=== PATIENT | female | born 1960 | race Caucasian/White ===

== ENCOUNTER 2018-08-24 11:55 | Inpatient (IN) | payer OTHER ==
[2018-08-24] MEDS ORDERED: SODIUM CHLORIDE 0.9% 1,000 ML IV ONE ×2 (12:09→14:31)
[2018-08-24] MEDS ORDERED: KETOROLAC 60 MG/2 ML VIAL IVP STA (12:10)
[2018-08-24] MEDS ORDERED: HYDROmorphone 1 MG/ML 1 ML SYRINGE IVP STA (12:10)
--- NOTE | 2018-08-24 12:14 | ED ---
General Adult HPI - General Chief complaint: Shortness of Breath Stated complaint: pneumonia Time Seen by Provider: 08/24/18 12:00 Source: patient, EMS, RN notes reviewed Mode of arrival: EMS Limitations: no limitations - History of Present Illness Initial comments: This is a 58-year-old female who was transferred to us from [facility] for pneumonia and sepsis. Patient received Zosyn and Levaquin at that facility. Patient currently is only complaining of some chest pain and mildly short of breath. Patient states she normally has asthma but this last week she has also developed a cough. Patient denies any anterior chest pain. Patient denies any palpitations. Patient denies any headache patient denies numbness weakness patient denies lightheadedness or dizziness. Patient denies any abdominal pain patient denies nausea vomiting diarrhea. [facility] stated above her she was slightly low and they were hydrating the patient prior to transfer. - Related Data Allergies Allergy/AdvReac Type Severity Reaction Status Date / Time sulfamethoxazole AdvReac Nausea & Verified 08/24/18 12:09 [From Bactrim] Vomiting trimethoprim [From Bactrim] AdvReac Nausea & Verified 08/24/18 12:09 Vomiting Review of Systems ROS Statement: Those systems with pertinent positive or pertinent negative responses have been documented in the HPI. ROS Other: All systems not noted in ROS Statement are negative. Past Medical History Past Medical History: Asthma, Hyperlipidemia, Pneumonia History of Any Multi-Drug Resistant Organisms: None Reported Past Surgical History: Tubal Ligation Past Psychological History: No Psychological Hx Reported Smoking Status: Never smoker Past Alcohol Use History: Occasional Past Drug Use History: None Reported General Exam - General Exam Comments Initial Comments: GENERAL: Patient is well-developed and well-nourished. Patient is nontoxic and well- hydrated and is in mild distress. ENT: Neck is soft and supple. No significant lymphadenopathy is noted. Oropharynx is clear. Moist mucous membranes. Neck has full range of motion without eliciting any pain. EYES: The sclera were anicteric and conjunctiva were pink and moist. Extraocular movements were intact and pupils were equal round and reactive to light. Eyelids were unremarkable. PULMONARY: Patient has crackles in the upper lobe. CARDIOVASCULAR: There is a regular rate and rhythm without any murmurs gallops or rubs. ABDOMEN: Soft and nontender with normal bowel sounds. SKIN: Skin is clear with no lesions or rashes and otherwise unremarkable. NEUROLOGIC: Patient is alert and oriented x3. Cranial nerves II through XII are grossly intact. Motor and sensory are also intact. Normal speech, volume and content. Symmetrical smile. MUSCULOSKELETAL: Normal extremities with adequate strength and full range of motion. No lower extremity swelling or edema. No calf tenderness. LYMPHATICS: No significant lymphadenopathy is noted PSYCHIATRIC: Normal psychiatric evaluation. Limitations: no limitations Course Vital Signs 08/24/18 08/24/18 08/24/18 12:02 12:21 12:47 Temperature 99.8 F H Pulse Rate 119 H 121 H 116 H Respiratory 22 22 20 Rate Blood Pressure 102/52 92/52 86/51 O2 Sat by Pulse 96 96 98 Oximetry Procedures - Sepsis Sepsis Focused Exam #1 Time Sepsis Criteria Met: 12:00 Sepsis Focused Exam Date: 08/24/18 Sepsis Focused Exam Time: 13:32 Sepsis Focused Exam Complete: Yes Vital Signs & RN Notes Reviewed: Yes Capillary Refill: < 2 Seconds: Fingers Peripheral Pulses: Normal: Radial (R) Skin Color: Normal for Patient Respiratory Exam: normal lung sounds Cardiovascular Exam: tachycardia Medical Decision Making - Lab Data Result diagrams: 08/24/18 12:14 08/24/18 12:14 Lab Results 08/24/18 08/24/18 08/24/18 Range/Units 12:14 12:14 12:14 WBC 12.1 H (3.8-10.6) k/uL RBC 3.40 L (3.80-5.40) m/uL Hgb 7.7 L (11.4-16.0) gm/dL Hct 24.5 L (34.0-46.0) % MCV 72.2 L (80.0-100.0) fL MCH 22.7 L (25.0-35.0) pg MCHC 31.4 (31.0-37.0) g/dL RDW 16.1 H (11.5-15.5) % Plt Count 282 (150-450) k/uL Neutrophils % 93 % Lymphocytes % 3 % Monocytes % 4 % Eosinophils % 1 % Basophils % 0 % Neutrophils # 11.2 H (1.3-7.7) k/uL Lymphocytes # 0.3 L (1.0-4.8) k/uL Monocytes # 0.4 (0-1.0) k/uL Eosinophils # 0.1 (0-0.7) k/uL Basophils # 0.0 (0-0.2) k/uL Polychromasia Present Hypochromasia Marked Anisocytosis Slight Microcytosis Moderate Sodium 139 (137-145) mmol/L Potassium 4.0 (3.5-5.1) mmol/L Chloride 106 (98-107) mmol/L Carbon Dioxide 21 L (22-30) mmol/L Anion Gap 12 mmol/L BUN 19 H (7-17) mg/dL Creatinine 0.58 (0.52-1.04) mg/dL Est GFR (CKD-EPI)AfAm >90 (>60 ml/min/1.73 sqM) Est GFR (CKD-EPI)NonAf >90 (>60 ml/min/1.73 sqM) Glucose 120 H (74-99) mg/dL Plasma Lactic Acid Jorge Luis 5.7 H* (0.7-2.0) mmol/L Calcium 8.4 (8.4-10.2) mg/dL Total Bilirubin 0.8 (0.2-1.3) mg/dL AST 16 (14-36) U/L ALT 16 (9-52) U/L Alkaline Phosphatase 48 (38-126) U/L Total Protein 4.8 L (6.3-8.2) g/dL Albumin 2.8 L (3.5-5.0) g/dL Disposition Clinical Impression: Anemia, Sepsis, Pneumonia Disposition: ADMITTED IP TO THIS [facility] Referrals: Kermit Cuellar MD [Primary Care Provider] - 1-2 days Time of Disposition: 13:32
[2018-08-24 12:39] LABS: Anisocytosis Slight; Basophils % (A) 0 %; Eosinophils # (A) 0.1 k/uL (0-0.7); Eosinophils % (A) 1 %; HCT 24.5 % (34.0-46.0); HGB 7.7 gm/dL (11.4-16.0); Hypochromasia Marked; Lymphocytes # (A) 0.3 k/uL (1.0-4.8); Lymphocytes % (A) 3 %; MCH 22.7 pg (25.0-35.0); MCHC 31.4 g/dL (31.0-37.0); MCV 72.2 fL (80.0-100.0); Mean Platelet Volume 7.4; Microcytosis Moderate; Monocytes # (A) 0.4 k/uL (0-1.0); Monocytes % (A) 4 %; Neutrophils # (A) 11.2 k/uL (1.3-7.7); Neutrophils % (A) 93 %; Platelet Count 282 k/uL (150-450); RDW 16.1 % (11.5-15.5); WBC 12.1 k/uL (3.8-10.6)
[2018-08-24 12:41] LABS: ALT 16 U/L (9-52); AST 16 U/L (14-36); Albumin 2.8 g/dL (3.5-5.0); Alkaline Phosphatase 48 U/L (38-126); Anion Gap 12 mmol/L; Blood Urea Nitrogen 19 mg/dL (7-17); Calcium 8.4 mg/dL (8.4-10.2); Carbon Dioxide 21 mmol/L (22-30); Chloride 106 mmol/L (98-107); Glucose 120 mg/dL (74-99); Sodium 139 mmol/L (137-145); Total Bilirubin 0.8 mg/dL (0.2-1.3); Total Protein 4.8 g/dL (6.3-8.2)
[2018-08-24 12:54] LABS: Polychromasia Present
[2018-08-24] MEDS ORDERED: NALOXONE 0.4 MG/ML 1 ML VIAL IV PRN (13:22)
[2018-08-24] MEDS ORDERED: VANCOMYCIN IV PER PHARMACY 1 EACH MISC MISCELLANE PRN (13:24)
[2018-08-24] MEDS ORDERED: VANCOMYCIN 1,500 MG in SODIUM CHLORIDE 0.9% 250 ML IVPB ONE (14:15)
--- NOTE | 2018-08-24 15:16 | P.CNPUL ---
History of Present Illness Consult date: 08/24/18 Reason for consult: asthma, pneumonia History of present illness: 58-year-old asthmatic feeling sick for almost a week coming into the hospital initially to [facility] for shortness of breath, pleuritic chest pain on the left, generalized fatigue and fever and cough and chest congestion. Chest x -ray was done and subsequently a CAT scan of the chest was completed and the patient was found to have a lingular patchy pneumonia and the patient was started on IV antibiotics and the patient was transferred to our hospital for further care. She had leukocytosis and upon arrival she was hypotensive with systolic in the mid 80s. She received 1 L of lactated Ringer in the emergency and she had also received 2 L I [facility]. Her systolic pressure measured is around 100. She has very lethargic. No altered mentation. No nausea or vomiting. No abdominal pain. No melanotic stool. No history of any GI bleeding or anemia. Hemoglobin was as low as 7.7. She has a microcytic. Review of Systems Constitutional: Reports fatigue, Reports fever, Reports poor appetite, Reports weakness Eyes: denies blurred vision, denies bulging eye, denies decreased vision Ears: deny: decreased hearing, ear discharge, earache, tinnitus Ears, nose, mouth and throat: Denies headache, Denies sore throat Cardiovascular: Reports decreased exercise tolerance, Reports dyspnea on exertion Respiratory: Reports cough, Reports dyspnea, Reports pain on inspiration, Reports wheezing Gastrointestinal: Denies abdominal pain, Denies diarrhea, Denies nausea, Denies vomiting Genitourinary: Reports as per HPI Menstruation: Reports as per HPI Musculoskeletal: Denies myalgias Musculoskeletal: absent: ankle pain, ankle stiffness, ankle swelling Integumentary: Denies pruritus, Denies rash Neurological: Reports as per HPI, Reports weakness Psychiatric: Reports confusion Endocrine: Reports fatigue Hematologic/Lymphatic: Reports as per HPI Allergic/Immunologic: Reports as per HPI Past Medical History Past Medical History: Asthma, Hyperlipidemia, Pneumonia History of Any Multi-Drug Resistant Organisms: None Reported Past Surgical History: Tubal Ligation Past Psychological History: No Psychological Hx Reported Smoking Status: Never smoker Past Alcohol Use History: Occasional Past Drug Use History: None Reported Medications and Allergies Home Medications Medication Instructions Recorded Confirmed Type Acetaminophen [Tylenol] 650 mg PO Q4H PRN 08/24/18 08/24/18 History Albuterol Nebulized [Ventolin 2.5 mg INHALATION RT-Q4H PRN 08/24/18 08/24/18 History Nebulized] Citalopram Hydrobromide 20 mg PO DAILY 08/24/18 08/24/18 History [Citalopram HBr] RX: Albuterol Inhaler [Ventolin 1 - 2 puff INHALATION RT-Q4H PRN 08/24/18 History Hfa Inhaler] RX: Pravastatin Sodium [Pravachol] 20 mg PO DAILY 08/24/18 08/24/18 History Allergies Allergy/AdvReac Type Severity Reaction Status Date / Time sulfamethoxazole AdvReac Nausea & Verified 08/24/18 13:48 [From Bactrim] Vomiting trimethoprim [From Bactrim] AdvReac Nausea & Verified 08/24/18 13:48 Vomiting Physical Exam Vitals: Vital Signs Temp Pulse Resp BP Pulse Ox 08/24/18 14:32 110 H 20 88/52 93 L 08/24/18 12:47 116 H 20 86/51 98 08/24/18 12:21 121 H 22 92/52 96 08/24/18 12:02 99.8 F H 119 H 22 102/52 96 Intake and Output 08/24/18 08/24/18 08/24/18 06:59 14:59 22:59 Other: Weight 63.503 kg Lethargic, weak, and mild degree of respiratory distress, sweating, able to communicate and answer questions appropriately. No altered mentation at this point in time. Head exam was generally normal. There was no scleral icterus or corneal arcus. Mucous membranes were moist. Neck was supple and without jugular venous distension, thyromegaly, or carotid bruits. Carotids were easily palpable bilaterally. There was no adenopathy. The patient is in the lymphatics S4 Lung sounds are diminished. Crackles over the left midlung area anteriorly. Few scattered external wheeze. Cardiac exam revealed the PMI to be normally situated and sized. The rhythm was regular and no extrasystoles were noted during several minutes of auscultation. The first and second heart sounds were normal and physiologic splitting of the second heart sound was noted. There were no murmurs, rubs, clicks, or gallops. Patient is tachycardic at this point. The rhythm is sinus AbdomenAbdominal exam revealed normal bowel sounds. The abdomen was soft, non- tender, and without masses, organomegaly, or appreciable enlargement of the abdominal aorta. Examination of the extremities revealed easily palpable radial, femoral and pedal pulses. There was no cyanosis, clubbing or edema. Examination of the skin revealed no evidence of significant rashes, suspicious appearing nevi or other concerning lesions. Neurologically awake and alert and there is no focal neurological deficit Psychiatrically the patient is anxious. Results - Laboratory Findings CBC and BMP: 08/24/18 12:14 08/24/18 12:14 Abnormal lab findings: Abnormal Labs 08/24/18 08/24/18 08/24/18 12:14 12:14 12:14 WBC 12.1 H RBC 3.40 L Hgb 7.7 L Hct 24.5 L MCV 72.2 L MCH 22.7 L RDW 16.1 H Neutrophils # 11.2 H Lymphocytes # 0.3 L Carbon Dioxide 21 L BUN 19 H Glucose 120 H Plasma Lactic Acid Jorge Luis 5.7 H* Total Protein 4.8 L Albumin 2.8 L - Diagnostic Findings Chest x-ray: image reviewed CT scan - chest: image reviewed Assessment and Plan Plan: Assessment 1 acute left lung pneumonia involving the lingular segment 2 acute septic shock secondary to pneumonia 3 hypotension secondary to above 4 acute leukocytosis secondary to above 5 acute lactic acidosis secondary to above 6 chronic bronchial asthma 7 anemia, microcytic, under investigation. Clinically there are no signs of GI bleeding. This may be a chronic alcohol GI blood loss knowing that the patient' s anemia is microcytic. Rule out underlying iron deficiency anemia. Plan Admit this patient to the intensive care unit. Given additional 2 L of IV fluid in the form of normal saline. Will add up to a total of 5 L of IV fluids. We'll use pressors if needed. Cover the patient with a combination of Zosyn and Levaquin and vancomycin. Sputum Gram stain and culture. Blood culture. Legionella urine antigen. DuoNeb the regimens [id number]. IV Solu Medrol. Serum iron and iron studies. The patient will be moved to the intensive care unit. We'll make further recommendations based on her overall progress.
[2018-08-24 16:46] LABS: Glucose,Whole Blood 107 mg/dL (75-99)
[2018-08-24] MEDS: PIPERACILLIN-TAZOBACTAM 3.375 GM in DEXTROSE/WATER 1 50ML.BAG IVPB SCH (18:17)
[2018-08-24] MEDS: LACTATED RINGERS 1,000 ML IV SCH (18:32)
[2018-08-24] MEDS: PANTOPRAZOLE 40 MG/10 ML VIAL IVP SCH (18:38)
[2018-08-24] MEDS: methylPREDNISolone SOD SUCCI 125 MG/2 ML VIAL IV SCH (18:38)
[2018-08-24] MEDS: HEPARIN SODIUM,PORCINE 5,000 UNIT/ML 1 ML VIAL SQ SCH (18:39)
[2018-08-24] MEDS ORDERED: NOREPINEPHRINE 4 MG in SODIUM CHLORIDE 0.9% 250 ML IV SCH (18:45)
[2018-08-24 19:57] LABS: Anisocytosis Slight; Basophils % (A) 0 %; Eosinophils % (A) 0 %; HCT 30.3 % (34.0-46.0); HGB 8.7 gm/dL (11.4-16.0); Hypochromasia Marked; Lymphocytes # (A) 0.4 k/uL (1.0-4.8); Lymphocytes % (A) 3 %; MCH 23.2 pg (25.0-35.0); MCHC 28.6 g/dL (31.0-37.0); Mean Platelet Volume 7.4; Monocytes # (A) 0.6 k/uL (0-1.0); Monocytes % (A) 4 %; Neutrophils # (A) 14.3 k/uL (1.3-7.7); Neutrophils % (A) 91 %; Platelet Count 236 k/uL (150-450); RBC 3.73 m/uL (3.80-5.40); RDW 17.6 % (11.5-15.5); WBC 15.7 k/uL (3.8-10.6)
[2018-08-24 19:58] LABS: MCV 81.2 fL (80.0-100.0)
[2018-08-24] MEDS: IPRATROPIUM-ALBUTEROL 3 ML NEB INHALATION SCH (20:42)
--- NOTE | 2018-08-24 20:51 | HP ---
HISTORY AND PHYSICAL DATE OF ADMISSION: 08/24/2018 DATE OF SERVICE: 08/24/2018. PRESENTING COMPLAINT: Short of breath. HISTORY OF PRESENTING COMPLAINT: A very pleasant 58-year-old patient of Dr. Cuellar. The patient for one week has been having flare up of asthma, started having more and more short of breath, wheezing, slight cough with slight sputum production. Did have some fever and chills. Presented to [facility]. CT scan and chest x-ray did show left upper lobe pneumonia with a white count of 23.8, and patient was transferred down to the ER here. In the ER here, patient found to have a blood pressure of 72/56. Lactic acid of 4.4. The patient is given 4 L of fluid. Hemoglobin also was found to be 7.7. A unit of blood was ordered. The patient also found to be in asthma exacerbation. Started on Solu- Medrol and breathing treatments. The patient admitted to the ICU for the same. Patient denies having any prior history of gastrointestinal bleed or recurrent black stools. The patient had a colonoscopy by Dr. Schaffer about 2 years ago. The patient when presented to the other facility her vital signs included temperature 98.2, pulse 124, respiratory 20, blood pressure 108/59, pulse ox 94 percent on room air. REVIEW OF SYSTEMS: CONSTITUTIONAL: Tired. HEENT none. RESPIRATORY as above. CARDIOVASCULAR as above. GASTROINTESTINAL none. GENITOURINARY none. MUSCULOSKELETAL: Some pain in joints. DERMATOLOGICAL, HEMATOLOGIC, LYMPHATIC: none. PSYCHIATRY none. NEUROLOGICAL none. PAST MEDICAL HISTORY: Of asthma, hyperlipidemia. PAST SURGICAL HISTORY: Tubal ligation. SOCIAL HISTORY: Alcohol occasionally. Does not smoke. . FAMILY HISTORY: History reviewed, noncontributory to presentation. HOME MEDICATIONS: 1. Pravachol 20 mg a day. 2. Celexa 20 mg a day. 3. Ventolin 2.5 q.4 p.r.n. 4. Ventolin HFA 1 or 2 puffs q.4 p.r.n. 5. Tylenol 650 mg q.4 p.r.n. ALLERGIES: BACTRIM. PHYSICAL EXAMINATION: VITAL SIGNS: Temperature 98.7, pulse 116, respiration 22, blood pressure 86/51, pulse ox 91 percent on room air. GENERAL APPEARANCE: Average built, sitting up, tired. EYES: Pupils equal. Conjunctivae pale. HEENT: External appearance of nose and ears normal. NECK: JVD not raised. Mass not palpable. RESPIRATORY effort increased. LUNGS decreased breath sounds. Prolonged expiration. Some wheezing. CARDIOVASCULAR: First and second sounds normal. No edema. ABDOMEN: Soft, nontender. Liver and spleen not palpable. LYMPHATICS: No lymph nodes palpable in the neck and axilla. PSYCHIATRY: Alert and oriented times three. Mood and affect normal. NEUROLOGICAL: Pupils equal. Cranial nerves grossly intact. Power and sensation grossly intact. INVESTIGATIONS: Blood work from here showed a white count 12.1, hemoglobin 7.7, potassium 4.0, BUN 19, creatinine 0.58. Lactic acid 5.7, albumin 2.8. Chest x-ray for the other place showed left lower lobe dense pneumonia. A proBNP of 621. Troponin 0.012. ASSESSMENT: 1. Left upper lobe pneumonia causing sepsis with septic shock on presentation. 2. Intermittent asthma with acute exacerbation. 3. Hyperlipidemia. 4. Acute lactic acidosis. 5. Microcytic anemia. The patient does not remember having dark stools with colonoscopy 2 years ago. Will need further workup. Currently hypotensive. Getting a unit of blood. PLAN: The patient is in the ICU, started on DuoNeb, IV Levaquin, IV Zosyn. We will DC the vancomycin for now. IV Solu-Medrol. Home medications are resumed. Care was discussed with the patient. Dr. Bonds from Critical Care was consulted and also Dr. Schaffer. We will send off stool for guaiac stools. Copy to Dr. Cuellar. MMNIRMALA / VELASQUEZN: [id number] /
[2018-08-24] MEDS ORDERED: ACETAMINOPHEN TAB 325 MG TAB PO PRN (20:57)
[2018-08-25] MEDS ORDERED: VANCOMYCIN 1,250 MG in SODIUM CHLORIDE 0.9% 250 ML IVPB SCH ×2
[2018-08-25] MEDS: methylPREDNISolone SOD SUCCI 125 MG/2 ML VIAL IV SCH ×5 (00:38→23:26)
[2018-08-25] MEDS: HEPARIN SODIUM,PORCINE 5,000 UNIT/ML 1 ML VIAL SQ SCH ×4 (00:38→23:27)
[2018-08-25] MEDS: PIPERACILLIN-TAZOBACTAM 3.375 GM in DEXTROSE/WATER 1 50ML.BAG IVPB SCH ×4 (00:38→23:27)
[2018-08-25 02:12] LABS: Anisocytosis Slight; HCT 28.3 % (34.0-46.0); Hypochromasia Marked; MCH 23.7 pg (25.0-35.0); MCHC 31.7 g/dL (31.0-37.0); Mean Platelet Volume 8.9; Microcytosis Slight; Platelet Count 259 k/uL (150-450); Poikilocytosis Slight; RBC 3.78 m/uL (3.80-5.40); RDW 17.4 % (11.5-15.5); WBC 23.2 k/uL (3.8-10.6)
[2018-08-25 02:21] LABS: MCV 74.9 fL (80.0-100.0)
[2018-08-25 03:00] LABS: Band Neutrophils % 43 %; Monocytes # (M) 0.93 k/uL (0-1.0); Neutrophils % (M) 51 %; Nucleated Red Blood Cells 0 /100 WBC (0-0); Total Cells Counted 200
[2018-08-25 03:01] LABS: Ovalocytes Present
[2018-08-25 03:02] LABS: Polychromasia Present
[2018-08-25 05:24] LABS: Anion Gap 8 mmol/L; Blood Urea Nitrogen 20 mg/dL (7-17); Calcium 8.5 mg/dL (8.4-10.2); Carbon Dioxide 19 mmol/L (22-30); Chloride 110 mmol/L (98-107); Glucose 147 mg/dL (74-99); Potassium 4.3 mmol/L (3.5-5.1); Sodium 137 mmol/L (137-145)
[2018-08-25 06:10] LABS: Anisocytosis Slight; HCT 27.3 % (34.0-46.0); HGB 8.7 gm/dL (11.4-16.0); Hypochromasia Marked; MCH 24.1 pg (25.0-35.0); MCHC 31.9 g/dL (31.0-37.0); MCV 75.6 fL (80.0-100.0); Microcytosis Slight; Platelet Count 248 k/uL (150-450); Poikilocytosis Slight; RBC 3.61 m/uL (3.80-5.40); RDW 17.2 % (11.5-15.5); WBC 21.9 k/uL (3.8-10.6)
[2018-08-25] MEDS: LEVOFLOXACIN 750MG-D5W PMX 750 MG in DEXTROSE/WATER 1 150ML.BAG IVPB SCH (06:46)
[2018-08-25 06:56] LABS: Glucose,Whole Blood 161 mg/dL (75-99)
[2018-08-25 07:29] LABS: Band Neutrophils % 15 %; Eosinophils # (M) 0.22 k/uL (0-0.7); Monocytes # (M) 0.44 k/uL (0-1.0); Neutrophils % (M) 77 %; Nucleated Red Blood Cells 0 /100 WBC (0-0); Ovalocytes Present; Polychromasia Present; Total Cells Counted 100
[2018-08-25] MEDS: LACTATED RINGERS 1,000 ML IV SCH (08:18)
[2018-08-25] MEDS: PANTOPRAZOLE 40 MG/10 ML VIAL IVP SCH (08:19)
[2018-08-25] MEDS: IPRATROPIUM-ALBUTEROL 3 ML NEB INHALATION SCH ×4 (09:03→20:14)
--- NOTE | 2018-08-25 11:16 | P.GSCN ---
History of Present Illness Consult date: 08/25/18 History of present illness: 58-year-old female presented to the emergency department from an outside facility due to shortness of breath and pneumonia. On admission, she was found to have anemia with a hemoglobin of 7.7. She was given 1 unit of packed red blood cell and has responded appropriately. She states that approximately 3 or 4 years ago she did have an upper and lower endoscopy. At that time, she states she was told she only had a small polyp within her colon and no active bleeding. She states that currently she has not noticed any bright red blood in her stool or any dark stool. She denies any change in frequency of bowel movements. She denies any lightheadedness. She denies any hematemesis. She denies any nausea or vomiting episodes. She denies any abdominal pain. She does state that she feels her breathing has improved. She has no additional complaints at this time. She does admit to history of hemorrhoids that she states have not been causing any significant issues. Review of Systems All systems: negative Past Medical History Past Medical History: Asthma, Hyperlipidemia, Pneumonia History of Any Multi-Drug Resistant Organisms: None Reported Past Surgical History: Tubal Ligation Past Psychological History: No Psychological Hx Reported Smoking Status: Never smoker Past Alcohol Use History: Occasional Past Drug Use History: None Reported Medications and Allergies Home Medications Medication Instructions Recorded Confirmed Type Acetaminophen [Tylenol] 650 mg PO Q4H PRN 08/24/18 08/24/18 History Albuterol Inhaler [Ventolin Hfa 1 - 2 puff INHALATION RT-Q4H PRN 08/24/18 History Inhaler] Albuterol Nebulized [Ventolin 2.5 mg INHALATION RT-Q4H PRN 08/24/18 08/24/18 History Nebulized] Citalopram Hydrobromide 20 mg PO DAILY 08/24/18 08/24/18 History [Citalopram HBr] Pravastatin Sodium [Pravachol] 20 mg PO DAILY 08/24/18 08/24/18 History Allergies Allergy/AdvReac Type Severity Reaction Status Date / Time sulfamethoxazole AdvReac Nausea & Verified 08/24/18 13:48 [From Bactrim] Vomiting trimethoprim [From Bactrim] AdvReac Nausea & Verified 08/24/18 13:48 Vomiting Surgical - Exam Osteopathic Statement: *. No significant issues noted on an osteopathic structural exam other than those noted in the History and Physical/Consult. Vital Signs Temp Pulse Resp BP Pulse Ox 99.8 F H 119 H 22 102/52 96 08/24/18 12:02 08/24/18 12:02 08/24/18 12:02 08/24/18 12:02 08/24/18 12:02 - General well nourished, no distress - Eyes normal ocular movement - ENT normal mucosa, no hearing loss - Neck no masses, trachea midline - Respiratory Diminished lung sounds - Abdomen Soft, nontender, nondistended, no rebound, no guarding - Psychiatric oriented to time, oriented to person, oriented to place, speech is normal, memory intact Results - Labs 08/25/18 04:29 08/25/18 04:29 Abnormal Lab Results - Last 24 Hours (Table) 08/24/18 08/24/18 08/24/18 Range/Units 12:14 12:14 12:14 WBC 12.1 H (3.8-10.6) k/uL RBC 3.40 L (3.80-5.40) m/uL Hgb 7.7 L (11.4-16.0) gm/dL Hct 24.5 L (34.0-46.0) % MCV 72.2 L (80.0-100.0) fL MCH 22.7 L (25.0-35.0) pg MCHC (31.0-37.0) g/dL RDW 16.1 H (11.5-15.5) % Neutrophils # 11.2 H (1.3-7.7) k/uL Neutrophils # (Manual) (1.3-7.7) k/uL Lymphocytes # 0.3 L (1.0-4.8) k/uL Lymphocytes # (Manual) (1.0-4.8) k/uL Chloride (98-107) mmol/L Carbon Dioxide 21 L (22-30) mmol/L BUN 19 H (7-17) mg/dL Glucose 120 H (74-99) mg/dL POC Glucose (mg/dL) (75-99) mg/dL Plasma Lactic Acid Jorge Luis 5.7 H* (0.7-2.0) mmol/L Total Protein 4.8 L (6.3-8.2) g/dL Albumin 2.8 L (3.5-5.0) g/dL Crossmatch 08/24/18 08/24/18 08/24/18 Range/Units 14:25 16:44 19:18 WBC 15.7 H (3.8-10.6) k/uL RBC 3.73 L (3.80-5.40) m/uL Hgb 8.7 L (11.4-16.0) gm/dL Hct 30.3 L (34.0-46.0) % MCV (80.0-100.0) fL MCH 23.2 L (25.0-35.0) pg MCHC 28.6 L (31.0-37.0) g/dL RDW 17.6 H (11.5-15.5) % Neutrophils # 14.3 H (1.3-7.7) k/uL Neutrophils # (Manual) (1.3-7.7) k/uL Lymphocytes # 0.4 L (1.0-4.8) k/uL Lymphocytes # (Manual) (1.0-4.8) k/uL Chloride (98-107) mmol/L Carbon Dioxide (22-30) mmol/L BUN (7-17) mg/dL Glucose (74-99) mg/dL POC Glucose (mg/dL) 107 H (75-99) mg/dL Plasma Lactic Acid Jorge Luis (0.7-2.0) mmol/L Total Protein (6.3-8.2) g/dL Albumin (3.5-5.0) g/dL Crossmatch See Detail 08/24/18 08/25/18 08/25/18 Range/Units 19:18 01:27 04:29 WBC 23.2 H 21.9 H (3.8-10.6) k/uL RBC 3.78 L 3.61 L (3.80-5.40) m/uL Hgb 9.0 L 8.7 L (11.4-16.0) gm/dL Hct 28.3 L 27.3 L (34.0-46.0) % MCV 74.9 L D 75.6 L (80.0-100.0) fL MCH 23.7 L 24.1 L (25.0-35.0) pg MCHC (31.0-37.0) g/dL RDW 17.4 H 17.2 H (11.5-15.5) % Neutrophils # (1.3-7.7) k/uL Neutrophils # (Manual) 21.80 H 20.10 H (1.3-7.7) k/uL Lymphocytes # (1.0-4.8) k/uL Lymphocytes # (Manual) 0.70 L (1.0-4.8) k/uL Chloride (98-107) mmol/L Carbon Dioxide (22-30) mmol/L BUN (7-17) mg/dL Glucose (74-99) mg/dL POC Glucose (mg/dL) (75-99) mg/dL Plasma Lactic Acid Jorge Luis 3.9 H* (0.7-2.0) mmol/L Total Protein (6.3-8.2) g/dL Albumin (3.5-5.0) g/dL Crossmatch 08/25/18 08/25/18 Range/Units 04:29 06:55 WBC (3.8-10.6) k/uL RBC (3.80-5.40) m/uL Hgb (11.4-16.0) gm/dL Hct (34.0-46.0) % MCV (80.0-100.0) fL MCH (25.0-35.0) pg MCHC (31.0-37.0) g/dL RDW (11.5-15.5) % Neutrophils # (1.3-7.7) k/uL Neutrophils # (Manual) (1.3-7.7) k/uL Lymphocytes # (1.0-4.8) k/uL Lymphocytes # (Manual) (1.0-4.8) k/uL Chloride 110 H (98-107) mmol/L Carbon Dioxide 19 L (22-30) mmol/L BUN 20 H (7-17) mg/dL Glucose 147 H (74-99) mg/dL POC Glucose (mg/dL) 161 H (75-99) mg/dL Plasma Lactic Acid Jorge Luis (0.7-2.0) mmol/L Total Protein (6.3-8.2) g/dL Albumin (3.5-5.0) g/dL Crossmatch Diabetes panel 08/24/18 08/25/18 Range/Units 12:14 04:29 Sodium 139 137 (137-145) mmol/L Potassium 4.0 4.3 (3.5-5.1) mmol/L Chloride 106 110 H (98-107) mmol/L Carbon Dioxide 21 L 19 L (22-30) mmol/L BUN 19 H 20 H (7-17) mg/dL Creatinine 0.58 0.59 (0.52-1.04) mg/dL Glucose 120 H 147 H (74-99) mg/dL Calcium 8.4 8.5 (8.4-10.2) mg/dL AST 16 (14-36) U/L ALT 16 (9-52) U/L Alkaline Phosphatase 48 (38-126) U/L Total Protein 4.8 L (6.3-8.2) g/dL Albumin 2.8 L (3.5-5.0) g/dL Calcium panel 08/24/18 08/25/18 Range/Units 12:14 04:29 Calcium 8.4 8.5 (8.4-10.2) mg/dL Albumin 2.8 L (3.5-5.0) g/dL Pituitary panel 08/24/18 08/25/18 Range/Units 12:14 04:29 Sodium 139 137 (137-145) mmol/L Potassium 4.0 4.3 (3.5-5.1) mmol/L Chloride 106 110 H (98-107) mmol/L Carbon Dioxide 21 L 19 L (22-30) mmol/L BUN 19 H 20 H (7-17) mg/dL Creatinine 0.58 0.59 (0.52-1.04) mg/dL Glucose 120 H 147 H (74-99) mg/dL Calcium 8.4 8.5 (8.4-10.2) mg/dL Adrenal panel 08/24/18 08/25/18 Range/Units 12:14 04:29 Sodium 139 137 (137-145) mmol/L Potassium 4.0 4.3 (3.5-5.1) mmol/L Chloride 106 110 H (98-107) mmol/L Carbon Dioxide 21 L 19 L (22-30) mmol/L BUN 19 H 20 H (7-17) mg/dL Creatinine 0.58 0.59 (0.52-1.04) mg/dL Glucose 120 H 147 H (74-99) mg/dL Calcium 8.4 8.5 (8.4-10.2) mg/dL Total Bilirubin 0.8 (0.2-1.3) mg/dL AST 16 (14-36) U/L ALT 16 (9-52) U/L Alkaline Phosphatase 48 (38-126) U/L Total Protein 4.8 L (6.3-8.2) g/dL Albumin 2.8 L (3.5-5.0) g/dL Assessment and Plan (1) Anemia Narrative/Plan: 58-year-old female with what appears to be microcytic anemia - Responded appropriately to 1 unit of packed red blood cell - No current evidence of gross GI bleed - Agree with fecal occult testing, will await results - Currently, there is no plan for any urgent upper or lower endoscopy due to no gross evidence of GI bleed. We will await improvement of pneumonia and respiratory status prior to making decision on inpatient versus outpatient endoscopy. Thank you for this consultation, we look forward in providing in this patient's care. Current Visit: Yes Status: Acute Code(s): D64.9 - ANEMIA, UNSPECIFIED SNOMED Code(s): 707198185
--- NOTE | 2018-08-25 11:39 | P.PN ---
Subjective Progress Note Date: 08/25/18 58-year-old asthmatic feeling sick for almost a week coming into the hospital initially to [facility] for shortness of breath, pleuritic chest pain on the left, generalized fatigue and fever and cough and chest congestion. Chest x -ray was done and subsequently a CAT scan of the chest was completed and the patient was found to have a lingular patchy pneumonia and the patient was started on IV antibiotics and the patient was transferred to our hospital for further care. She had leukocytosis and upon arrival she was hypotensive with systolic in the mid 80s. She received 1 L of lactated Ringer in the emergency and she had also received 2 L I [facility]. Her systolic pressure measured is around 100. She has very lethargic. No altered mentation. No nausea or vomiting. No abdominal pain. No melanotic stool. No history of any GI bleeding or anemia. Hemoglobin was as low as 7.7. She has a microcytic. On 08/25/2018 I'm seeing this patient for a follow-up. The patient was admitted to the hospital for left lung pneumonia and sepsis. The patient is currently on a triple antibiotic coverage. She started having pleuritic left- sided chest pain. She is less short of breath compared to yesterday and she is on 2 L of oxygen by nasal cannula. She is still having some mild degree of sinus tachycardia due to hypotension as recovered and the patient has responded to fluids and she did not require any pressors. Currently she is running on normal saline at the rate of 100 mL an hour. The patient also received a unit of packed RBC and a previous colonoscopy that was done on this patient by [facility] was essentially within normal limits and the patient is again to be evaluated by general surgery. She does have an underlying iron deficiency anemia and iron levels are still pending for now. She is doing well. She is tolerating her diet. No nausea or vomiting. A follow-up chest x-ray has not been done today and this is in progress. Overall she is doing better and much more alert and responsive compared to yesterday. Objective - Vital Signs Vital signs: Vital Signs Temp 98.1 F 08/25/18 08:00 Pulse 105 H 08/25/18 11:00 Resp 20 08/25/18 11:00 BP 102/59 08/25/18 11:00 Pulse Ox 99 08/25/18 11:00 Intake & Output 08/24/18 08/25/18 08/25/18 18:59 06:59 18:59 Intake Total 922.5 1100 927.5 Output Total 1000 200 Balance 922.5 100 727.5 Weight 63.5 kg 75.3 kg Intake: Intake, IV Titration 462.5 1100 687.5 Amount Lactated Ringers 1,000 ml 200 1100 500 @ 100 mls/hr IV .Q10H LISA Rx#:[id number] Levofloxacin 750Mg-D5w 150 Pmx 750 mg In Dextrose/ Water 1 150ml.bag @ 100 mls/hr IVPB Q24H LISA Rx#: [id number] Piperacillin-Tazobactam 3 12.5 37.5 .375 gm In Dextrose/Water 1 50ml.bag @ 12.5 mls/hr IVPB Q8HR LISA Rx#: [id number] Vancomycin 1,250 mg In 250 Sodium Chloride 0.9% 250 ml @ 125 mls/hr IVPB Q8H LISA Rx#:[id number] Oral 150 240 Blood Product 310 Rc As-1 Unit 310 [id number] Output: Urine 1000 200 Other: Voiding Method Toilet Toilet Toilet # Voids 1 0 0 - Exam Lethargic, weak, and mild degree of respiratory distress, sweating, able to communicate and answer questions appropriately. No altered mentation at this point in time. Head exam was generally normal. There was no scleral icterus or corneal arcus. Mucous membranes were moist. Neck was supple and without jugular venous distension, thyromegaly, or carotid bruits. Carotids were easily palpable bilaterally. There was no adenopathy. The patient is in the lymphatics S4 Lung sounds are diminished. Crackles over the left midlung area anteriorly. Few scattered external wheeze. Cardiac exam revealed the PMI to be normally situated and sized. The rhythm was regular and no extrasystoles were noted during several minutes of auscultation. The first and second heart sounds were normal and physiologic splitting of the second heart sound was noted. There were no murmurs, rubs, clicks, or gallops. Patient is tachycardic at this point. The rhythm is sinus AbdomenAbdominal exam revealed normal bowel sounds. The abdomen was soft, non- tender, and without masses, organomegaly, or appreciable enlargement of the abdominal aorta. Examination of the extremities revealed easily palpable radial, femoral and pedal pulses. There was no cyanosis, clubbing or edema. Examination of the skin revealed no evidence of significant rashes, suspicious appearing nevi or other concerning lesions. Neurologically awake and alert and there is no focal neurological deficit Psychiatrically the patient is anxious. - Labs CBC & Chem 7: 08/25/18 04:29 08/25/18 04:29 Labs: Abnormal Lab Results - Last 24 Hours (Table) 08/24/18 08/24/18 08/24/18 Range/Units 12:14 12:14 12:14 WBC 12.1 H (3.8-10.6) k/uL RBC 3.40 L (3.80-5.40) m/uL Hgb 7.7 L (11.4-16.0) gm/dL Hct 24.5 L (34.0-46.0) % MCV 72.2 L (80.0-100.0) fL MCH 22.7 L (25.0-35.0) pg MCHC (31.0-37.0) g/dL RDW 16.1 H (11.5-15.5) % Neutrophils # 11.2 H (1.3-7.7) k/uL Neutrophils # (Manual) (1.3-7.7) k/uL Lymphocytes # 0.3 L (1.0-4.8) k/uL Lymphocytes # (Manual) (1.0-4.8) k/uL Chloride (98-107) mmol/L Carbon Dioxide 21 L (22-30) mmol/L BUN 19 H (7-17) mg/dL Glucose 120 H (74-99) mg/dL POC Glucose (mg/dL) (75-99) mg/dL Plasma Lactic Acid Jorge Luis 5.7 H* (0.7-2.0) mmol/L Total Protein 4.8 L (6.3-8.2) g/dL Albumin 2.8 L (3.5-5.0) g/dL Crossmatch 08/24/18 08/24/18 08/24/18 Range/Units 14:25 16:44 19:18 WBC 15.7 H (3.8-10.6) k/uL RBC 3.73 L (3.80-5.40) m/uL Hgb 8.7 L (11.4-16.0) gm/dL Hct 30.3 L (34.0-46.0) % MCV (80.0-100.0) fL MCH 23.2 L (25.0-35.0) pg MCHC 28.6 L (31.0-37.0) g/dL RDW 17.6 H (11.5-15.5) % Neutrophils # 14.3 H (1.3-7.7) k/uL Neutrophils # (Manual) (1.3-7.7) k/uL Lymphocytes # 0.4 L (1.0-4.8) k/uL Lymphocytes # (Manual) (1.0-4.8) k/uL Chloride (98-107) mmol/L Carbon Dioxide (22-30) mmol/L BUN (7-17) mg/dL Glucose (74-99) mg/dL POC Glucose (mg/dL) 107 H (75-99) mg/dL Plasma Lactic Acid Jorge Luis (0.7-2.0) mmol/L Total Protein (6.3-8.2) g/dL Albumin (3.5-5.0) g/dL Crossmatch See Detail 08/24/18 08/25/18 08/25/18 Range/Units 19:18 01:27 04:29 WBC 23.2 H 21.9 H (3.8-10.6) k/uL RBC 3.78 L 3.61 L (3.80-5.40) m/uL Hgb 9.0 L 8.7 L (11.4-16.0) gm/dL Hct 28.3 L 27.3 L (34.0-46.0) % MCV 74.9 L D 75.6 L (80.0-100.0) fL MCH 23.7 L 24.1 L (25.0-35.0) pg MCHC (31.0-37.0) g/dL RDW 17.4 H 17.2 H (11.5-15.5) % Neutrophils # (1.3-7.7) k/uL Neutrophils # (Manual) 21.80 H 20.10 H (1.3-7.7) k/uL Lymphocytes # (1.0-4.8) k/uL Lymphocytes # (Manual) 0.70 L (1.0-4.8) k/uL Chloride (98-107) mmol/L Carbon Dioxide (22-30) mmol/L BUN (7-17) mg/dL Glucose (74-99) mg/dL POC Glucose (mg/dL) (75-99) mg/dL Plasma Lactic Acid Jorge Luis 3.9 H* (0.7-2.0) mmol/L Total Protein (6.3-8.2) g/dL Albumin (3.5-5.0) g/dL Crossmatch 08/25/18 08/25/18 Range/Units 04:29 06:55 WBC (3.8-10.6) k/uL RBC (3.80-5.40) m/uL Hgb (11.4-16.0) gm/dL Hct (34.0-46.0) % MCV (80.0-100.0) fL MCH (25.0-35.0) pg MCHC (31.0-37.0) g/dL RDW (11.5-15.5) % Neutrophils # (1.3-7.7) k/uL Neutrophils # (Manual) (1.3-7.7) k/uL Lymphocytes # (1.0-4.8) k/uL Lymphocytes # (Manual) (1.0-4.8) k/uL Chloride 110 H (98-107) mmol/L Carbon Dioxide 19 L (22-30) mmol/L BUN 20 H (7-17) mg/dL Glucose 147 H (74-99) mg/dL POC Glucose (mg/dL) 161 H (75-99) mg/dL Plasma Lactic Acid Jorge Luis (0.7-2.0) mmol/L Total Protein (6.3-8.2) g/dL Albumin (3.5-5.0) g/dL Crossmatch Assessment and Plan Plan: Assessment 1 acute left lung pneumonia involving the lingular segment, currently on a triple antibiotic coverage utilizing a combination of Zosyn and Levaquin and vancomycin. Follow-up chest exit of today's pending. Clinically improved although she is having still some Zyrtec chest pain on the left. Currently on oxygen at 2 L per minute nasal cannula. Hemodynamically more stable. No hypotension. Still having some mild degree of sinus tachycardia. 2 acute septic shock secondary to pneumonia 3 hypotension secondary to above, improved and currently on no pressors 4 acute leukocytosis secondary to above, white cell count remains elevated at 21 5 acute lactic acidosis secondary to above 6 chronic bronchial asthma 7 anemia, microcytic, under investigation. Clinically there are no signs of GI bleeding. This may be a chronic alcohol GI blood loss knowing that the patient' s anemia is microcytic. Rule out underlying iron deficiency anemia. Plan Obtain a follow-up chest x-ray. Continue same antibiotic coverage. Awaiting the results of the blood cultures. IV fluids with normal saline at the rate of 100 mL an hour. Oxygen 2 L per minute nasal cannula. Same antibiotic coverage. May leave the ICU at a later stage. Advance diet. Advance activity. We'll follow.
[2018-08-25] MEDS: INSULIN ASPART 100 UNIT/ML 1 ML 10 ML VIAL SQ SCH ×3 (11:56→21:54)
--- NOTE | 2018-08-25 11:56 | XR ---
EXAMINATION TYPE: XR chest 1V DATE OF EXAM: 08/25/2018 HISTORY: left lung pneumonia. REFERENCE: Chest radiograph dated 08/24/2018. FINDINGS: There is continuing left upper lobe airspace disease. There is an enlarging left effusion. The right lung is clear. The heart is mildly enlarged. IMPRESSION: 1. WORSENING LEFT-SIDED AIRSPACE DISEASE. 2. WORSENING LEFT-SIDED EFFUSION. 3. MILD CARDIOMEGALY.
[2018-08-25 11:57] LABS: Glucose,Whole Blood 125 mg/dL (75-99)
[2018-08-25] MEDS: SODIUM CHLORIDE 0.9% 1,000 ML IV SCH ×2 (13:07→23:27)
[2018-08-25 17:41] LABS: Glucose,Whole Blood 150 mg/dL (75-99)
[2018-08-25 21:02] LABS: Glucose,Whole Blood 209 mg/dL (75-99)
[2018-08-26] MEDS ORDERED: methylPREDNISolone SOD SUCCI 40 MG/ML 1 ML VIAL IV SCH (00:10)
--- NOTE | 2018-08-26 01:36 | PN ---
PROGRESS NOTE DATE OF SERVICE: 08/25/2018. PRESENTING COMPLAINT: Short of breath. INTERVAL HISTORY: This patient was seen by me yesterday on 08/25/2018. Patient with acute asthma exacerbation and symptomatic anemia, microcytic. Given a unit of blood. Initially admitted to the ICU, now moved out. Doing better. Breathing is stable. Did tolerate some diet. REVIEW OF SYSTEMS: Done for constitutional, cardiovascular, GI, pulmonary; relevant findings as above. CURRENT MEDICATIONS: Reviewed that include IV Solu-Medrol, DuoNeb, IV Levaquin and Zosyn. EXAMINATION: Afebrile, pulse 104, respirations 16, blood pressure 102/72, pulse ox 98% on 2 L. GENERAL APPEARANCE: Lying in bed comfortable. EYES: Pupils equal. Conjunctivae normal. Pale. HEENT: External nose and ears normal. Oral cavity normal. NECK: Neck is no JVD not raised. Mass not palpable. RESPIRATORY: Effort increased. LUNGS: Improved air entry. CARDIOVASCULAR: 1st and 2nd sounds normal. No edema. ABDOMEN: Soft, nontender. Liver and spleen not palpable. PSYCHIATRY: Alert and oriented x3. Mood and affect normal. INVESTIGATIONS: White count 21.9, hemoglobin 8.7, potassium 4.3, BUN 20, creatinine 0.59. ASSESSMENT: 1. Left upper lobe pneumonia causing sepsis with septic shock on presentation with clinical response. 2. Intermittent asthma with acute exacerbation. 3. Hyperlipidemia. 4. Acute lactic acidosis. 5. Microcytic anemia, for endoscopy down the road. PLAN: Continue medication and treatment plan. Scale Solu-Medrol to 40 every 8 hours. Care was discussed with the patient. Patient has been moved out of the ICU. The patient will need endoscopy down the road. MMODL / IJN: [id number] /
[2018-08-26] MEDS: LEVOFLOXACIN 750MG-D5W PMX 750 MG in DEXTROSE/WATER 1 150ML.BAG IVPB SCH (06:32)
[2018-08-26 07:17] LABS: Glucose,Whole Blood 150 mg/dL (75-99)
[2018-08-26] MEDS: IPRATROPIUM-ALBUTEROL 3 ML NEB INHALATION SCH ×4 (07:18→20:48)
[2018-08-26] MEDS: methylPREDNISolone SOD SUCCI 40 MG/ML 1 ML VIAL IVP SCH ×2 (07:51→16:17)
[2018-08-26] MEDS: HEPARIN SODIUM,PORCINE 5,000 UNIT/ML 1 ML VIAL SQ SCH ×2 (07:51→16:17)
[2018-08-26] MEDS: PANTOPRAZOLE 40 MG/10 ML VIAL IVP SCH (07:52)
[2018-08-26] MEDS: INSULIN ASPART 100 UNIT/ML 1 ML 10 ML VIAL SQ SCH ×4 (07:55→20:51)
[2018-08-26] MEDS: PIPERACILLIN-TAZOBACTAM 3.375 GM in DEXTROSE/WATER 1 50ML.BAG IVPB SCH ×2 (08:33→15:16)
--- NOTE | 2018-08-26 08:35 | P.PN ---
Subjective Progress Note Date: 08/26/18 Patient seen and examined at bedside. States she is feeling better. Shortness of breath has improved. Denies any bloody bowel movements. Objective - Vital Signs Vital signs: Vital Signs Temp 98.1 F 08/26/18 06:39 Pulse 110 H 08/26/18 07:34 Resp 16 08/26/18 06:39 BP 129/79 08/26/18 06:39 Pulse Ox 97 08/26/18 06:39 Intake & Output 08/25/18 08/26/18 08/26/18 18:59 06:59 18:59 Intake Total 1477.5 Output Total 600 Balance 877.5 Weight 75.3 kg Intake: Intake, IV Titration 987.5 Amount Lactated Ringers 1,000 ml 500 @ 100 mls/hr IV .Q10H LISA Rx#:[id number] Levofloxacin 750Mg-D5w 150 Pmx 750 mg In Dextrose/ Water 1 150ml.bag @ 100 mls/hr IVPB Q24H LISA Rx#: [id number] Piperacillin-Tazobactam 3 37.5 .375 gm In Dextrose/Water 1 50ml.bag @ 12.5 mls/hr IVPB Q8HR LISA Rx#: [id number] Sodium Chloride 0.9% 1, 300 000 ml @ 100 mls/hr IV . Q10H LISA Rx#:[id number] Oral 490 Output: Urine 600 Other: Voiding Method Toilet Toilet # Voids 1 2 - Constitutional General appearance: Present: cooperative, no acute distress - Respiratory Details: No difficulty with respiration - Gastrointestinal Gastrointestinal Comment(s): Soft, nontender, nondistended, no rebound, guarding - Psychiatric Psychiatric: Present: appropriate affect - Labs CBC & Chem 7: 08/25/18 04:29 08/25/18 04:29 Labs: Abnormal Lab Results - Last 24 Hours (Table) 08/24/18 08/25/18 08/25/18 Range/Units 14:25 11:55 17:26 POC Glucose (mg/dL) 125 H 150 H (75-99) mg/dL Crossmatch See Detail 08/25/18 08/26/18 Range/Units 21:01 07:15 POC Glucose (mg/dL) 209 H 150 H (75-99) mg/dL Crossmatch Assessment and Plan (1) Anemia Narrative/Plan: 58-year-old female with what appears to be microcytic anemia - Hemoglobin remains stable - No current evidence of gross GI bleed - Agree with fecal occult testing, will await results - Currently, there is no plan for any urgent upper or lower endoscopy due to no gross evidence of GI bleed. Any endoscopy will be performed as an outpatient. Current Visit: Yes Status: Acute Code(s): D64.9 - ANEMIA, UNSPECIFIED SNOMED Code(s): 591378052
[2018-08-26] MEDS: SODIUM CHLORIDE 0.9% 1,000 ML IV SCH ×2 (10:12→20:45)
[2018-08-26 10:37] LABS: Iron Saturation 1.74 (12.00-45.00)
[2018-08-26 11:16] LABS: Anion Gap 8 mmol/L; Blood Urea Nitrogen 18 mg/dL (7-17); Carbon Dioxide 23 mmol/L (22-30); Chloride 111 mmol/L (98-107); Glucose 162 mg/dL (74-99); Potassium 3.7 mmol/L (3.5-5.1); Sodium 142 mmol/L (137-145)
[2018-08-26 11:27] LABS: Glucose,Whole Blood 160 mg/dL (75-99)
--- NOTE | 2018-08-26 15:49 | P.PN ---
Subjective Progress Note Date: 08/26/18 Principal diagnosis: Acute left lung pneumonia, community-acquired. 58-year-old asthmatic feeling sick for almost a week coming into the hospital initially to [facility] for shortness of breath, pleuritic chest pain on the left, generalized fatigue and fever and cough and chest congestion. Chest x -ray was done and subsequently a CAT scan of the chest was completed and the patient was found to have a lingular patchy pneumonia and the patient was started on IV antibiotics and the patient was transferred to our hospital for further care. She had leukocytosis and upon arrival she was hypotensive with systolic in the mid 80s. She received 1 L of lactated Ringer in the emergency and she had also received 2 L I [facility]. Her systolic pressure measured is around 100. She has very lethargic. No altered mentation. No nausea or vomiting. No abdominal pain. No melanotic stool. No history of any GI bleeding or anemia. Hemoglobin was as low as 7.7. She has a microcytic. On 08/25/2018 I'm seeing this patient for a follow-up. The patient was admitted to the hospital for left lung pneumonia and sepsis. The patient is currently on a triple antibiotic coverage. She started having pleuritic left- sided chest pain. She is less short of breath compared to yesterday and she is on 2 L of oxygen by nasal cannula. She is still having some mild degree of sinus tachycardia due to hypotension as recovered and the patient has responded to fluids and she did not require any pressors. Currently she is running on normal saline at the rate of 100 mL an hour. The patient also received a unit of packed RBC and a previous colonoscopy that was done on this patient by [facility] was essentially within normal limits and the patient is again to be evaluated by general surgery. She does have an underlying iron deficiency anemia and iron levels are still pending for now. She is doing well. She is tolerating her diet. No nausea or vomiting. A follow-up chest x-ray has not been done today and this is in progress. Overall she is doing better and much more alert and responsive compared to yesterday. I saw the patient again on 08/26/2018, patient is feeling better, less pain, less cough, less shortness of breath, remains on triple antibiotics as noted by Dr. Bonsd. Patient believes that she is much better today compared to yesterday. No fever no chills no hemoptysis, and no chest pain. She did receive a unit of packed RBCs for low hemoglobin. Her hemoglobin now is 8.7. All labs were reviewed, she had a relatively normal electrolytes, lactic acid on presentation was 3.9, no follow-up lactic acid was done. Clinically however the patient is recovering nicely from initial presentation of pneumonia and sepsis. Objective - Vital Signs Vital signs: Vital Signs Temp 98.1 F 08/26/18 06:39 Pulse 108 H 08/26/18 11:33 Resp 16 08/26/18 07:50 BP 129/79 08/26/18 06:39 Pulse Ox 97 08/26/18 06:39 Intake & Output 08/25/18 08/26/18 08/26/18 18:59 06:59 18:59 Intake Total 1477.5 Output Total 600 Balance 877.5 Weight 75.3 kg Intake: Intake, IV Titration 987.5 Amount Lactated Ringers 1,000 ml 500 @ 100 mls/hr IV .Q10H LISA Rx#:[id number] Levofloxacin 750Mg-D5w 150 Pmx 750 mg In Dextrose/ Water 1 150ml.bag @ 100 mls/hr IVPB Q24H LISA Rx#: [id number] Piperacillin-Tazobactam 3 37.5 .375 gm In Dextrose/Water 1 50ml.bag @ 12.5 mls/hr IVPB Q8HR LISA Rx#: [id number] Sodium Chloride 0.9% 1, 300 000 ml @ 100 mls/hr IV . Q10H LISA Rx#:[id number] Oral 490 Output: Urine 600 Other: Voiding Method Toilet Toilet Toilet # Voids 1 2 3 - Exam Physical Exam: Revealed a 58-year-old female in no distress. On nasal cannula. Head: Atraumatic, normocephalic. Lymphatics: No lymphadenopathy. HEENT:[Neck is supple.] [No neck masses.] [No thyromegaly.] [No JVD.] Chest: [Clear throughout, no crackles, no rhonchi, no wheezes.] Cardiac Exam: [Normal S1 and S2, no S3 gallop, no murmur.] Abdomen: [Soft, nontender, no megaly, no rebound, no guarding, normal bowel sounds.] Extremities: [No clubbing, no edema, no cyanosis.] Neurological Exam: [No focal neurologic deficit.] Psychiatric: Normal mood, affect, and mental status examination. - Labs CBC & Chem 7: 08/25/18 04:29 08/26/18 10:40 Labs: Abnormal Lab Results - Last 24 Hours (Table) 08/24/18 08/25/18 08/25/18 Range/Units 14:25 04:29 17:26 Chloride (98-107) mmol/L BUN (7-17) mg/dL Glucose (74-99) mg/dL POC Glucose (mg/dL) 150 H (75-99) mg/dL Iron 6 L (50-170) ug/dL Iron Saturation 1.74 L (12.00-45.00) Crossmatch See Detail 08/25/18 08/26/18 08/26/18 Range/Units 21:01 07:15 10:40 Chloride 111 H (98-107) mmol/L BUN 18 H (7-17) mg/dL Glucose 162 H (74-99) mg/dL POC Glucose (mg/dL) 209 H 150 H (75-99) mg/dL Iron (50-170) ug/dL Iron Saturation (12.00-45.00) Crossmatch 08/26/18 Range/Units 11:24 Chloride (98-107) mmol/L BUN (7-17) mg/dL Glucose (74-99) mg/dL POC Glucose (mg/dL) 160 H (75-99) mg/dL Iron (50-170) ug/dL Iron Saturation (12.00-45.00) Crossmatch Assessment and Plan Assessment: Impression: 1 acute septic shock secondary to community-acquired pneumonia, involving left lung mostly. patient required fluid boluses upon presentation and she required placement on norepinephrine. 2 hypotension secondary to above, resolved. 3 acute lactic acidosis on presentation secondary to sepsis 4 chronic bronchial asthma presently inactive 5 microcytic anemia currently under investigation, patient did receive a unit of packed RBCs on admission. Presently on hemoglobin is 8.7. Recommendation: Continue present course of antibiotics, continue bronchodilators , not quite ready for discharge planning at this point, I would have a repeat chest x-ray in a.m. Discussed and reviewed the patient's chest x-ray, still concerning to me, again the patient is not ready for any discharge planning at this point. Her condition is a bit complex and a bit concerning. Time with Patient: Less than 30
[2018-08-26 17:11] LABS: Glucose,Whole Blood 170 mg/dL (75-99)
[2018-08-26 20:42] LABS: Glucose,Whole Blood 241 mg/dL (75-99)
--- NOTE | 2018-08-26 21:17 | PN ---
PROGRESS NOTE DATE OF SERVICE: 08/26/2018 PRESENTING COMPLAINT: Short of breath. INTERVAL HISTORY: This patient presented with acute asthma exacerbation, symptomatic anemia, microcytic, moved out of the ICU yesterday. Doing much better. Did tolerate a diet. On nasal cannula. Patient is a mouth breather. Slight cough. No sputum. REVIEW OF SYSTEMS: Done for constitutional, cardiovascular, GI, pulmonary and relevant findings as above. CURRENT MEDICATIONS: Reviewed that include DuoNeb, IV Levaquin, IV Zosyn, IV Solu-Medrol. PHYSICAL EXAMINATION: VITAL SIGNS: Temperature 96.8, pulse 108, respiration 18, blood pressure 109/66, pulse ox 98% on 2 L. GENERAL APPEARANCE: Sitting up on a chair, comfortable, awake. EYES: Pupils equal. Conjunctivae normal. HEENT: External appearance of nose and ears normal. Oral cavity normal. NECK: JVD not raised. Mass not palpable. RESPIRATORY: Effort increased. LUNGS: Decreased breath sounds. CARDIOVASCULAR: 1st and 2nd sounds normal. No edema. ABDOMEN: Soft, nontender. Liver and spleen not palpable. PSYCHIATRY: Alert and oriented x3. Mood and affect normal. INVESTIGATIONS: Potassium 3.7, BUN 18, creatinine 0.68. ASSESSMENT: 1. Left upper lobe pneumonia causing sepsis with septic shock on presentation with significant improvement. 2. Intermittent asthma with acute exacerbation. 3. Hyperlipidemia. 4. Acute lactic acidosis. 5. Microscopic anemia for endoscopy down the road. 6. Hyperglycemia from steroids. PLAN: Continue current medication and treatment plan. Patient encouraged to ambulate. Will DC the IV fluids later today as oral intake is greatly improved. MMODL / IJN: [id number] /
[2018-08-27] MEDS: HEPARIN SODIUM,PORCINE 5,000 UNIT/ML 1 ML VIAL SQ SCH ×3 (00:27→16:37)
[2018-08-27] MEDS: methylPREDNISolone SOD SUCCI 40 MG/ML 1 ML VIAL IVP SCH ×3 (00:28→16:37)
[2018-08-27] MEDS: PIPERACILLIN-TAZOBACTAM 3.375 GM in DEXTROSE/WATER 1 50ML.BAG IVPB SCH ×3 (00:29→16:37)
[2018-08-27] MEDS: LEVOFLOXACIN 750MG-D5W PMX 750 MG in DEXTROSE/WATER 1 150ML.BAG IVPB SCH (06:56)
[2018-08-27 07:30] LABS: Glucose,Whole Blood 131 mg/dL (75-99)
[2018-08-27] MEDS: IPRATROPIUM-ALBUTEROL 3 ML NEB INHALATION SCH ×4 (07:31→19:31)
[2018-08-27] MEDS: PANTOPRAZOLE 40 MG/10 ML VIAL IVP SCH (08:05)
[2018-08-27] MEDS: INSULIN ASPART 100 UNIT/ML 1 ML 10 ML VIAL SQ SCH ×4 (08:06→21:58)
--- NOTE | 2018-08-27 08:29 | XR ---
EXAMINATION TYPE: XR chest 2V DATE OF EXAM: 08/27/2018 COMPARISON: Prior chest x-ray 08/25/[address] and chest x-ray from outside institution dated 08/24/20 18 HISTORY: Left upper lobe pneumonia TECHNIQUE: Frontal and lateral views of the chest are obtained. FINDINGS: Airspace disease persists, findings are similar to prior exam, left upper lobe atelectasis noted. Heart is enlarged. No evident pneumothorax. Blunting of the posterior costophrenic angles com patible with pleural effusions. Patchy density also present at the right lung base. Retrocardiac dens ity present associated hiatal hernia, fixed intrathoracic stomach. Prominent epicardial fat pad noted on the right. IMPRESSION: Findings compatible with left upper lobe pneumonia with associated left upper lobe atele ctasis. There may be associated basilar atelectasis, small effusions. Follow-up recommended.
[2018-08-27 09:52] LABS: Anion Gap 9 mmol/L; Blood Urea Nitrogen 22 mg/dL (7-17); Calcium 8.9 mg/dL (8.4-10.2); Carbon Dioxide 22 mmol/L (22-30); Chloride 111 mmol/L (98-107); Glucose 172 mg/dL (74-99); Potassium 3.9 mmol/L (3.5-5.1); Sodium 142 mmol/L (137-145)
[2018-08-27 11:19] LABS: Glucose,Whole Blood 125 mg/dL (75-99)
--- NOTE | 2018-08-27 14:55 | P.PN ---
Subjective Progress Note Date: 08/27/18 Principal diagnosis: Acute left lung pneumonia, community-acquired 58-year-old asthmatic feeling sick for almost a week coming into the hospital initially to [facility] for shortness of breath, pleuritic chest pain on the left, generalized fatigue and fever and cough and chest congestion. Chest x -ray was done and subsequently a CAT scan of the chest was completed and the patient was found to have a lingular patchy pneumonia and the patient was started on IV antibiotics and the patient was transferred to our hospital for further care. She had leukocytosis and upon arrival she was hypotensive with systolic in the mid 80s. She received 1 L of lactated Ringer in the emergency and she had also received 2 L I [facility]. Her systolic pressure measured is around 100. She has very lethargic. No altered mentation. No nausea or vomiting. No abdominal pain. No melanotic stool. No history of any GI bleeding or anemia. Hemoglobin was as low as 7.7. She has a microcytic. On 08/25/2018 I'm seeing this patient for a follow-up. The patient was admitted to the hospital for left lung pneumonia and sepsis. The patient is currently on a triple antibiotic coverage. She started having pleuritic left- sided chest pain. She is less short of breath compared to yesterday and she is on 2 L of oxygen by nasal cannula. She is still having some mild degree of sinus tachycardia due to hypotension as recovered and the patient has responded to fluids and she did not require any pressors. Currently she is running on normal saline at the rate of 100 mL an hour. The patient also received a unit of packed RBC and a previous colonoscopy that was done on this patient by [facility] was essentially within normal limits and the patient is again to be evaluated by general surgery. She does have an underlying iron deficiency anemia and iron levels are still pending for now. She is doing well. She is tolerating her diet. No nausea or vomiting. A follow-up chest x-ray has not been done today and this is in progress. Overall she is doing better and much more alert and responsive compared to yesterday. I saw the patient again on 08/26/2018, patient is feeling better, less pain, less cough, less shortness of breath, remains on triple antibiotics as noted by Dr. Bonds. Patient believes that she is much better today compared to yesterday. No fever no chills no hemoptysis, and no chest pain. She did receive a unit of packed RBCs for low hemoglobin. Her hemoglobin now is 8.7. All labs were reviewed, she had a relatively normal electrolytes, lactic acid on presentation was 3.9, no follow-up lactic acid was done. Clinically however the patient is recovering nicely from initial presentation of pneumonia and sepsis. On 08/27/2018 patient seen in follow-up on medical surgical floor. Vital chest x-ray has been completed this morning, and shows left upper lobe pneumonia associated with atelectasis, small bilateral pleural effusions, more so on the left. There is a patchy density at the right lung base. Overall slightly improved, less density in the left upper lobe. Patient remains on tube nasal cannula, her pulse ox is 98%, afebrile, hemodynamically stable. Patient has nonproductive cough, lung sounds are positive for coarse inspiratory crackles over bilateral lungs, more so in the left upper and lower lobes, crackles at the right base. Patient remains on abiotic coverage in the form of Levaquin and Zosyn, nebulized bronchodilators, clinically she denies any worsening shortness of breath, denies any chest pain, denies any pleurisy. Legionella urinary antigen is still pending. Today's labs were reviewed, sodium is 142, potassium is 3.9, chloride is 111, B1 is 22, creatinine 0.57. Objective - Vital Signs Vital signs: Vital Signs Temp 96.9 F L 08/27/18 06:21 Pulse 94 08/27/18 11:59 Resp 16 08/27/18 11:59 BP 126/78 08/27/18 06:21 Pulse Ox 98 08/27/18 07:25 Intake & Output 08/26/18 08/27/18 08/27/18 18:59 06:59 18:59 Intake Total 600 Balance 600 Intake: Oral 600 Other: Voiding Method Toilet Toilet # Voids 3 1 - Exam Physical Exam: Revealed a 58-year-old female in no distress. On nasal cannula. Head: Atraumatic, normocephalic. Lymphatics: No lymphadenopathy. HEENT:[Neck is supple.] [No neck masses.] [No thyromegaly.] [No JVD.] Chest: [Inspiratory crackles over bilateral lower lobes, and in the left upper lobe] Cardiac Exam: [Normal S1 and S2, no S3 gallop, no murmur.] Abdomen: [Soft, nontender, no megaly, no rebound, no guarding, normal bowel sounds.] Extremities: [No clubbing, no edema, no cyanosis.] Neurological Exam: [No focal neurologic deficit.] Psychiatric: Normal mood, affect, and mental status examination. - Labs CBC & Chem 7: 08/25/18 04:29 08/27/18 08:54 Labs: Abnormal Lab Results - Last 24 Hours (Table) 08/26/18 08/26/18 08/27/18 Range/Units 16:20 20:40 07:26 Chloride (98-107) mmol/L BUN (7-17) mg/dL Glucose (74-99) mg/dL POC Glucose (mg/dL) 170 H 241 H 131 H (75-99) mg/dL 08/27/18 08/27/18 Range/Units 08:54 11:11 Chloride 111 H (98-107) mmol/L BUN 22 H (7-17) mg/dL Glucose 172 H (74-99) mg/dL POC Glucose (mg/dL) 125 H (75-99) mg/dL Assessment and Plan Plan: Assessment: 1 acute septic shock secondary to community-acquired pneumonia, involving left lung mostly. patient required fluid boluses upon presentation and she required placement on norepinephrine. 2 hypotension secondary to above, resolved. 3 acute lactic acidosis on presentation secondary to sepsis 4 chronic bronchial asthma presently inactive 5 microcytic anemia currently under investigation, patient did receive a unit of packed RBCs on admission. Presently on hemoglobin is 8.7. Plan: Continue current antibiotic coverage, continue bronchodilators, continue IV steroids. Slightly improved on follow-up chest x-ray. Not ready for discharge , but is improving. Legionella urine antigen is pending. Continue current antibiotic coverage. In to follow I performed a history & physical examination of the patient and discussed their management with my nurse practitioner, Janene Granados. I reviewed the nurse practitioner's note and agree with the documented findings and plan of care. Lung sounds are positive for diffuse crackles in bilateral lungs, in the left upper and lower lobes, and at the right base. The findings and the impression was discussed with the patient. I attest to the documentation by the nurse practitioner. Time with Patient: Less than 30
[2018-08-27 16:50] LABS: Glucose,Whole Blood 180 mg/dL (75-99)
[2018-08-27 21:37] LABS: Glucose,Whole Blood 174 mg/dL (75-99)
--- NOTE | 2018-08-27 23:23 | PN ---
PROGRESS NOTE DATE OF SERVICE: 08/27/2018. PRESENTING COMPLAINT: Short of breath. INTERVAL HISTORY: The patient presented with acute asthma exacerbation, symptomatic anemia, microcytic and pneumonia with septic shock. The patient was in the ICU. Breathing is getting better on nasal cannula. Did tolerate some diet. No sputum. Minimal cough. REVIEW OF SYSTEMS: Done for constitutional, cardiovascular, GI, pulmonary; relevant findings as above. CURRENT MEDICATIONS: Reviewed that include DuoNeb, IV Levaquin, IV Zosyn, IV Solu-Medrol. EXAMINATION: VITAL SIGNS: Afebrile, pulse 101, respiratory 18, blood pressure 136/81, pulse ox 98% on 3 L. GENERAL APPEARANCE: Sitting up, awake. EYES: Pupils equal. Conjunctivae normal. HEENT: External appearance of nose and ears normal. Oral cavity normal. NECK: JVD not raised. Mass not palpable. RESPIRATORY: Effort increased. LUNGS: Decreased breath sounds on the left side. CARDIOVASCULAR: 1st and 2nd sounds normal. No edema. ABDOMEN: Soft, nontender. Liver and spleen not palpable. PSYCHIATRY: Alert and oriented x3. Mood and affect normal. INVESTIGATION: Chest x-ray film, personally reviewed by me shows significant infiltrate on the left side and possible left significant pleural effusion. ASSESSMENT: 1. Left upper lobe pneumonia causing sepsis, septic shock on presentation with some clinical response. 2. Possible left parapneumonic effusion. 3. Intermittent asthma with acute exacerbation, improving. 4. Hyperlipidemia. 5. Acute lactic acidosis. 6. Microcytic anemia for endoscopy down the road. 7. steroids. PLAN: We will scale back on patient's steroids. Continue with IV antibiotics. We will do ultrasound of the chest to do some marking to see if there is significant fluid that needs to be tapped in a setting of effusion. In the meantime, antibiotics are to continue. MMODL / IJN: [id number] /
[2018-08-28] MEDS: PIPERACILLIN-TAZOBACTAM 3.375 GM in DEXTROSE/WATER 1 50ML.BAG IVPB SCH ×3 (00:37→23:09)
[2018-08-28] MEDS: HEPARIN SODIUM,PORCINE 5,000 UNIT/ML 1 ML VIAL SQ SCH ×3 (00:38→17:21)
[2018-08-28] MEDS: LEVOFLOXACIN 750MG-D5W PMX 750 MG in DEXTROSE/WATER 1 150ML.BAG IVPB SCH (06:27)
[2018-08-28 07:30] LABS: Glucose,Whole Blood 111 mg/dL (75-99)
[2018-08-28] MEDS: IPRATROPIUM-ALBUTEROL 3 ML NEB INHALATION SCH ×4 (08:53→20:06)
[2018-08-28] MEDS: INSULIN ASPART 100 UNIT/ML 1 ML 10 ML VIAL SQ SCH ×4 (09:07→20:39)
[2018-08-28] MEDS: methylPREDNISolone SOD SUCCI 40 MG/ML 1 ML VIAL IV SCH ×2 (09:08→23:09)
[2018-08-28] MEDS: PANTOPRAZOLE 40 MG/10 ML VIAL IVP SCH (09:08)
--- NOTE | 2018-08-28 09:18 | US ---
EXAMINATION TYPE: US chest DATE OF EXAM: 08/28/2018 COMPARISON: CXR 08/27/18 CLINICAL HISTORY: pl effusion - marking for thoracentesis. TECHNIQUE: Targeted ultrasound of the posterior lower bilateral hemithoraces EXAM MEASUREMENTS: Right Pleural Effusion pocket size: 9.0 cm Right skin surface to fluid distance: 1.9 cm Left Pleural Effusion pocket size: 1.6 cm Left skin surface to fluid distance: 2.4 cm Right side marked for possible thoracentesis outside the dept. . Pulmonologists are able to review the images in the patient?s EMR. IMPRESSIONS: 1. Bilateral pleural effusion greater on the right.
[2018-08-28 12:13] LABS: Anion Gap 8 mmol/L; Blood Urea Nitrogen 23 mg/dL (7-17); Calcium 8.7 mg/dL (8.4-10.2); Carbon Dioxide 24 mmol/L (22-30); Chloride 110 mmol/L (98-107); Glucose 124 mg/dL (74-99); Potassium 4.1 mmol/L (3.5-5.1); Sodium 142 mmol/L (137-145)
[2018-08-28 12:23] LABS: Glucose,Whole Blood 141 mg/dL (75-99)
--- NOTE | 2018-08-28 14:27 | XR ---
EXAMINATION TYPE: XR chest 2V DATE OF EXAM: 08/28/2018 COMPARISON: 08/27/2018 TECHNIQUE: PA and lateral views submitted. HISTORY: Bilateral pleural effusion FINDINGS: Bilateral pleural-parenchymal changes are stable. Heart size stable. No pneumothorax. Atherosclerotic change aorta. Interstitium remains mildly prominent. IMPRESSION: 1. Bilateral pleural-parenchymal changes are stable with a persistent more localized area of consolid ation involving the left upper lobe. May been the basis of a pneumonia. Underlying neoplasm not exclu ded. Follow to resolution recommended.
--- NOTE | 2018-08-28 15:24 | P.PN ---
Subjective Progress Note Date: 08/28/18 Principal diagnosis: Acute left lung pneumonia, community-acquired 58-year-old asthmatic feeling sick for almost a week coming into the hospital initially to [facility] for shortness of breath, pleuritic chest pain on the left, generalized fatigue and fever and cough and chest congestion. Chest x -ray was done and subsequently a CAT scan of the chest was completed and the patient was found to have a lingular patchy pneumonia and the patient was started on IV antibiotics and the patient was transferred to our hospital for further care. She had leukocytosis and upon arrival she was hypotensive with systolic in the mid 80s. She received 1 L of lactated Ringer in the emergency and she had also received 2 L I [facility]. Her systolic pressure measured is around 100. She has very lethargic. No altered mentation. No nausea or vomiting. No abdominal pain. No melanotic stool. No history of any GI bleeding or anemia. Hemoglobin was as low as 7.7. She has a microcytic. On 08/25/2018 I'm seeing this patient for a follow-up. The patient was admitted to the hospital for left lung pneumonia and sepsis. The patient is currently on a triple antibiotic coverage. She started having pleuritic left- sided chest pain. She is less short of breath compared to yesterday and she is on 2 L of oxygen by nasal cannula. She is still having some mild degree of sinus tachycardia due to hypotension as recovered and the patient has responded to fluids and she did not require any pressors. Currently she is running on normal saline at the rate of 100 mL an hour. The patient also received a unit of packed RBC and a previous colonoscopy that was done on this patient by [facility] was essentially within normal limits and the patient is again to be evaluated by general surgery. She does have an underlying iron deficiency anemia and iron levels are still pending for now. She is doing well. She is tolerating her diet. No nausea or vomiting. A follow-up chest x-ray has not been done today and this is in progress. Overall she is doing better and much more alert and responsive compared to yesterday. I saw the patient again on 08/26/2018, patient is feeling better, less pain, less cough, less shortness of breath, remains on triple antibiotics as noted by Dr. Bonds. Patient believes that she is much better today compared to yesterday. No fever no chills no hemoptysis, and no chest pain. She did receive a unit of packed RBCs for low hemoglobin. Her hemoglobin now is 8.7. All labs were reviewed, she had a relatively normal electrolytes, lactic acid on presentation was 3.9, no follow-up lactic acid was done. Clinically however the patient is recovering nicely from initial presentation of pneumonia and sepsis. On 08/27/2018 patient seen in follow-up on medical surgical floor. Vital chest x-ray has been completed this morning, and shows left upper lobe pneumonia associated with atelectasis, small bilateral pleural effusions, more so on the left. There is a patchy density at the right lung base. Overall slightly improved, less density in the left upper lobe. Patient remains on tube nasal cannula, her pulse ox is 98%, afebrile, hemodynamically stable. Patient has nonproductive cough, lung sounds are positive for coarse inspiratory crackles over bilateral lungs, more so in the left upper and lower lobes, crackles at the right base. Patient remains on abiotic coverage in the form of Levaquin and Zosyn, nebulized bronchodilators, clinically she denies any worsening shortness of breath, denies any chest pain, denies any pleurisy. Legionella urinary antigen is still pending. Today's labs were reviewed, sodium is 142, potassium is 3.9, chloride is 111, B1 is 22, creatinine 0.57. On thousand 18 patient seen in follow-up on medical surgical floor, she is more short of breath this morning, and she was more short of breath last night. Ultrasound of the chest was obtained evaluate the bilateral pleural effusions, and it showed 9 cm pocket of fluid on the right. And 1.6 cm pocket on the left. Patient is afebrile, lung sounds are diminished at the right base, with scattered crackles. Patient is on 3 L per nasal cannula, his pulse ox is 96%. No results in the Legionella urinary antigen. Patient continues on Levaquin and Zosyn. Objective - Vital Signs Vital signs: Vital Signs Temp 97.6 F 08/28/18 07:01 Pulse 92 08/28/18 09:03 Resp 18 08/28/18 07:01 BP 135/80 08/28/18 07:01 Pulse Ox 96 08/28/18 07:01 Intake & Output 08/27/18 08/28/18 08/28/18 18:59 06:59 18:59 Intake Total 600 1000 Balance 600 1000 Intake: Oral 600 1000 Other: Voiding Method Toilet # Voids 5 2 - Exam Physical Exam: Revealed a 58-year-old female in no distress. On nasal cannula. Head: Atraumatic, normocephalic. Lymphatics: No lymphadenopathy. HEENT:[Neck is supple.] [No neck masses.] [No thyromegaly.] [No JVD.] Chest: [Inspiratory crackles over bilateral lower lobes, and in the left upper lobe, diminished right lower lobe breath sounds] Cardiac Exam: [Normal S1 and S2, no S3 gallop, no murmur.] Abdomen: [Soft, nontender, no megaly, no rebound, no guarding, normal bowel sounds.] Extremities: [No clubbing, no edema, no cyanosis.] Neurological Exam: [No focal neurologic deficit.] Psychiatric: Normal mood, affect, and mental status examination. - Labs CBC & Chem 7: 08/25/18 04:29 08/28/18 10:54 Labs: Abnormal Lab Results - Last 24 Hours (Table) 08/27/18 08/27/18 08/28/18 Range/Units 16:46 21:23 07:17 POC Glucose (mg/dL) 180 H 174 H 111 H (75-99) mg/dL Assessment and Plan Plan: Assessment: 1. acute septic shock secondary to community-acquired pneumonia, involving left lung mostly. patient required fluid boluses upon presentation and she required placement on norepinephrine. 2. hypotension secondary to above, resolved. 3. acute lactic acidosis on presentation secondary to sepsis 4. 9 cm pleural fluid effusion on the right, with 1.6 cm pocket on the left 5. chronic bronchial asthma presently inactive 6. microcytic anemia currently under investigation, patient did receive a unit of packed RBCs on admission. Presently on hemoglobin is 8.7. Plan: Start Lasix 40 mg every 8 hours, repeat CXR in am. NPO after midnight for bronchoscopy with BAL with Dr. Mixon. Continue current antibiotic coverage, neb treatments, will continue to follow I performed a history & physical examination of the patient and discussed their management with my nurse practitioner, Janene Granados. I reviewed the nurse practitioner's note and agree with the documented findings and plan of care. Lung sounds are positive for diffuse crackles in bilateral lungs, in the left upper and lower lobes, and at the right base. The findings and the impression was discussed with the patient. I attest to the documentation by the nurse practitioner. Time with Patient: Less than 30
[2018-08-28 17:01] LABS: Glucose,Whole Blood 160 mg/dL (75-99)
--- NOTE | 2018-08-28 19:46 | PN ---
PROGRESS NOTE DATE OF SERVICE: 08/28/18. PRESENTING COMPLAINT: Short of breath. INTERVAL HISTORY: This patient presented with acute asthma exacerbation and severe pneumonia with septic shock. The patient did get up and walk in the hallway. Minimal sputum production, got a cough. REVIEW OF SYSTEMS: Done for constitutional, cardiovascular, GI, pulmonary; relevant findings as above. CURRENT MEDICATIONS: Reviewed that include DuoNeb, IV Levaquin, IV Zosyn, IV Solu-Medrol. PHYSICAL EXAMINATION: Temperature 96.9, pulse 92, respiration 16, blood pressure 150/94, pulse ox 96% on 3 L. GENERAL APPEARANCE: Sitting up, awake. EYES: Pupils equal. Conjunctivae normal. HEENT: External appearance of nose and ears normal. Oral cavity normal. NECK: JVD not raised. Mass not palpable. RESPIRATORY: Effort increased. Lungs, decreased breath sounds, especially the left side. CARDIOVASCULAR: First and second sounds normal. No edema. ABDOMEN: Soft, nontender. Liver and spleen not palpable. PSYCHIATRY: Alert and oriented x3. Mood and affect normal. INVESTIGATIONS: Chest ultrasound reveals effusions on both the sides. ASSESSMENT: 1. Left lower lobe pneumonia causing sepsis, septic shock on presentation with some associated pleural effusion. 2. Possible left parapneumonic effusion. 3. Intermittent asthma with acute exacerbation, improved. 4. Hyperlipidemia. 5. Acute lactic acidosis. 6. Macrocytic anemia for endoscopy down the road. 7. Doubt congestive heart failure. PLAN: I discussed the ultrasound results with Dr. Mixon. He may contemplate a bronchoscopy with lavage. He is going to give some Lasix. I am not sure of the clinical pictures compatible with the same. We will see how the patient does clinically. We will order 2D echocardiogram to assess LV function. Either case bronchoscopy with lavage is a good idea. Discussed this with the patient. Continue with the antibiotics. MMODL / IJN: [id number] /
[2018-08-28 21:06] LABS: Glucose,Whole Blood 120 mg/dL (75-99)
[2018-08-28] MEDS: FUROSEMIDE 10 MG/ML 4 ML VIAL IV SCH (23:08)
[2018-08-29] MEDS: FUROSEMIDE 10 MG/ML 4 ML VIAL IV SCH ×3 (00:47→15:08)
[2018-08-29] MEDS: PIPERACILLIN-TAZOBACTAM 3.375 GM in DEXTROSE/WATER 1 50ML.BAG IVPB SCH ×3 (00:49→15:09)
[2018-08-29] MEDS: HEPARIN SODIUM,PORCINE 5,000 UNIT/ML 1 ML VIAL SQ SCH ×3 (00:51→15:08)
[2018-08-29 07:35] LABS: Glucose,Whole Blood 89 mg/dL (75-99)
[2018-08-29] MEDS: IPRATROPIUM-ALBUTEROL 3 ML NEB INHALATION SCH ×4 (07:47→20:12)
[2018-08-29] MEDS: INSULIN ASPART 100 UNIT/ML 1 ML 10 ML VIAL SQ SCH ×4 (08:22→21:20)
[2018-08-29] MEDS: LEVOFLOXACIN 750MG-D5W PMX 750 MG in DEXTROSE/WATER 1 150ML.BAG IVPB SCH (08:26)
[2018-08-29] MEDS: methylPREDNISolone SOD SUCCI 40 MG/ML 1 ML VIAL IV SCH ×2 (08:27→21:19)
[2018-08-29] MEDS: PANTOPRAZOLE 40 MG/10 ML VIAL IVP SCH (08:27)
[2018-08-29 12:01] LABS: Glucose,Whole Blood 119 mg/dL (75-99)
[2018-08-29] MEDS ORDERED: LACTATED RINGERS 1,000 ML IV ONE ×2 (12:14→12:32)
[2018-08-29] MEDS ORDERED: LACTATED RINGERS 500 ML IV ONE (12:19)
[2018-08-29] MEDS ORDERED: LIDOCAINE 2% INJ 20 MG/ML INTRATRACH ONE (12:30)
--- NOTE | 2018-08-29 13:43 | P.PN ---
Subjective Progress Note Date: 08/29/18 Principal diagnosis: Acute community-acquired left lung pneumonia. 58-year-old asthmatic feeling sick for almost a week coming into the hospital initially to [facility] for shortness of breath, pleuritic chest pain on the left, generalized fatigue and fever and cough and chest congestion. Chest x -ray was done and subsequently a CAT scan of the chest was completed and the patient was found to have a lingular patchy pneumonia and the patient was started on IV antibiotics and the patient was transferred to our hospital for further care. She had leukocytosis and upon arrival she was hypotensive with systolic in the mid 80s. She received 1 L of lactated Ringer in the emergency and she had also received 2 L I [facility]. Her systolic pressure measured is around 100. She has very lethargic. No altered mentation. No nausea or vomiting. No abdominal pain. No melanotic stool. No history of any GI bleeding or anemia. Hemoglobin was as low as 7.7. She has a microcytic. On 08/25/2018 I'm seeing this patient for a follow-up. The patient was admitted to the hospital for left lung pneumonia and sepsis. The patient is currently on a triple antibiotic coverage. She started having pleuritic left- sided chest pain. She is less short of breath compared to yesterday and she is on 2 L of oxygen by nasal cannula. She is still having some mild degree of sinus tachycardia due to hypotension as recovered and the patient has responded to fluids and she did not require any pressors. Currently she is running on normal saline at the rate of 100 mL an hour. The patient also received a unit of packed RBC and a previous colonoscopy that was done on this patient by [facility]ius was essentially within normal limits and the patient is again to be evaluated by general surgery. She does have an underlying iron deficiency anemia and iron levels are still pending for now. She is doing well. She is tolerating her diet. No nausea or vomiting. A follow-up chest x-ray has not been done today and this is in progress. Overall she is doing better and much more alert and responsive compared to yesterday. I saw the patient again on 08/26/2018, patient is feeling better, less pain, less cough, less shortness of breath, remains on triple antibiotics as noted by Dr. Bonds. Patient believes that she is much better today compared to yesterday. No fever no chills no hemoptysis, and no chest pain. She did receive a unit of packed RBCs for low hemoglobin. Her hemoglobin now is 8.7. All labs were reviewed, she had a relatively normal electrolytes, lactic acid on presentation was 3.9, no follow-up lactic acid was done. Clinically however the patient is recovering nicely from initial presentation of pneumonia and sepsis. On 08/27/2018 patient seen in follow-up on medical surgical floor. Vital chest x-ray has been completed this morning, and shows left upper lobe pneumonia associated with atelectasis, small bilateral pleural effusions, more so on the left. There is a patchy density at the right lung base. Overall slightly improved, less density in the left upper lobe. Patient remains on tube nasal cannula, her pulse ox is 98%, afebrile, hemodynamically stable. Patient has nonproductive cough, lung sounds are positive for coarse inspiratory crackles over bilateral lungs, more so in the left upper and lower lobes, crackles at the right base. Patient remains on abiotic coverage in the form of Levaquin and Zosyn, nebulized bronchodilators, clinically she denies any worsening shortness of breath, denies any chest pain, denies any pleurisy. Legionella urinary antigen is still pending. Today's labs were reviewed, sodium is 142, potassium is 3.9, chloride is 111, B1 is 22, creatinine 0.57. On 08/28/2018 patient seen in follow-up on medical surgical floor, she is more short of breath this morning, and she was more short of breath last night. Ultrasound of the chest was obtained evaluate the bilateral pleural effusions, and it showed 9 cm pocket of fluid on the right. And 1.6 cm pocket on the left. Patient is afebrile, lung sounds are diminished at the right base, with scattered crackles. Patient is on 3 L per nasal cannula, his pulse ox is 96%. No results in the Legionella urinary antigen. Patient continues on Levaquin and Zosyn. The patient is seen again today on 08/29/2018 in follow-up on the regular medical floor. She is awake and alert in no acute distress. She is still having ongoing issues with shortness of breath, dyspnea on exertion, loose nonproductive cough. The plan is for bronchoscopy with BAL today with Dr. Mixon. She remains afebrile. Maintaining O2 saturations in the mid 90s on 2 L /m per nasal cannula. Hemodynamically stable. She remains on bronchodilators, Zosyn and Levaquin along with IV Solu-Medrol and IV diuretics. Objective - Vital Signs Vital signs: Vital Signs Temp 98.5 F 08/29/18 06:39 Pulse 80 08/29/18 11:03 Resp 20 08/29/18 06:39 BP 143/82 08/29/18 06:39 Pulse Ox 95 08/29/18 06:39 Intake & Output 08/28/18 08/29/18 08/29/18 18:59 06:59 18:59 Intake Total 50 450 100 Balance 50 450 100 Intake: IV 100 Intake, IV Titration 50 Amount Piperacillin-Tazobactam 3 50 .375 gm In Dextrose/Water 1 50ml.bag @ 12.5 mls/hr IVPB Q8HR LISA Rx#: [id number] Oral 450 Other: # Voids 2 3 - Exam GENERAL EXAM: Alert, active, comfortable in no apparent distress. HEAD: Normocephalic. EYES: Normal reaction of pupils, equal size. NOSE: Clear with pink turbinates. THROAT: No erythema or exudates. NECK: No masses, no JVD. CHEST: No chest wall deformity. LUNGS: Equal air entry with scattered rhonchi more so on the left. CVS: S1 and S2 normal with no audible murmur, regular rhythm. ABDOMEN: No hepatosplenomegaly, normal bowel sounds, no guarding or rigidity. SPINE: No scoliosis or deformity SKIN: No rashes CENTRAL NERVOUS SYSTEM: No focal deficits, tone is normal in all 4 extremities. EXTREMITIES: There is no peripheral edema. No clubbing, no cyanosis. Peripheral pulses are intact. - Labs CBC & Chem 7: 08/25/18 04:29 08/28/18 10:54 Labs: Abnormal Lab Results - Last 24 Hours (Table) 08/28/18 08/28/18 08/29/18 Range/Units 16:50 20:38 11:52 POC Glucose (mg/dL) 160 H 120 H 119 H (75-99) mg/dL Assessment and Plan Assessment: Assessment: 1. acute septic shock secondary to community-acquired pneumonia, involving left lung mostly. patient required fluid boluses upon presentation and she required placement on norepinephrine. Recovered. 2. hypotension secondary to above, resolved. 3. acute lactic acidosis on presentation secondary to sepsis 4. 9 cm pleural fluid effusion on the right, with 1.6 cm pocket on the left 5. chronic bronchial asthma presently inactive 6. microcytic anemia currently under investigation, patient did receive a unit of packed RBCs on admission. Presently on hemoglobin is 8.7. Plan: The patient was seen and evaluated by Dr. Mixon. The plan is for bronchoscopy with BAL. Bronchial wash will be sent for fluid analysis and cytology. Continue with the current treatment plan. We'll continue to follow. I, the cosigning physician, performed a history & physical examination of the patient. Lungs sounds with scattered rhonchi more so on the left lung. Maintaining good O2 saturations in the 90s on 2 L/m per nasal cannula. I discussed the assessment and plan of care with my nurse practitioner, Lila Bunch. I attest to the above note as dictated by her.
[2018-08-29 17:40] LABS: Glucose,Whole Blood 159 mg/dL (75-99)
--- NOTE | 2018-08-29 18:07 | ECHOF ---
Referral Reason:assess lv function MEASUREMENTS -------- HEIGHT: 152.4 cm WEIGHT: 75.3 kg BP: 143/82 RVIDd: 2.8 cm (< 3.3) IVSd: 1.3 cm (0.6 - 1.1) LVIDd: 2.8 cm (3.9 - 5.3) LVPWd: 1.3 cm (0.6 - 1.1) IVSs: 1.5 cm LVIDs: 1.7 cm LVPWs: 1.4 cm LAESV Index (A-L): 18.95 ml/m Ao Diam: 2.7 cm (2.0 - 3.7) AV Cusp: 1.6 cm (1.5 - 2.6) LA Diam: 3.6 cm (2.7 - 3.8) EPSS: 0.3 cm MV E Nnamdi: 0.94 m/s MV DecT: 224 ms MV A Nnamdi: 1.07 m/s MV E/A Ratio: 0.88 RAP: 5.00 mmHg RVSP: 24.86 mmHg MV EF SLOPE: 75.75 mm/s (70 - 150) MV EXCURSION: 1.33 cm (> 18.000) FINDINGS -------- Sinus rhythm. This was a technically adequate study. The left ventricular size is normal. There is mild concentric left ventricular hypertrophy. Overa ll left ventricular systolic function is normal with, an EF between 55 - 60 %. The right ventricle is normal in size and function. Normal LA size by volume 22+/-6 ml/m2. The right atrium is normal in size. Aortic valve is trileaflet and is mildly thickened. There is no evidence of aortic regurgitation. There is no evidence of aortic stenosis. Mild mitral annular calcification present. Mild mitral regurgitation is present. Trace tricuspid regurgitation present. Right ventricular systolic pressure is normal at < 35 mmHg. There is no evidence of pulmonary hypertension. Trace/mild (physiologic) pulmonic regurgitation. The aortic root size is normal. Normal inferior vena cava with normal inspiratory collapse consistent with estimated right atrial pre ssure of 5 mmHg. There is a small pericardial effusion is located near the right ventricle. CONCLUSIONS -------- 1. Sinus rhythm. 2. This was a technically adequate study. 3. The left ventricular size is normal. 4. There is mild concentric left ventricular hypertrophy. 5. Overall left ventricular systolic function is normal with, an EF between 55 - 60 %. 6. Normal LA size by volume 22+/-6 ml/m2. 7. Aortic valve is trileaflet and is mildly thickened. 8. Mild mitral annular calcification present. 9. Mild mitral regurgitation is present. 10. Trace tricuspid regurgitation present. 11. Right ventricular systolic pressure is normal at < 35 mmHg. 12. There is no evidence of pulmonary hypertension. 13. Trace/mild (physiologic) pulmonic regurgitation. 14. The aortic root size is normal. 15. There is a small pericardial effusion is located near the right ventricle. REALTIME REPORTER: Manny Mayers RDCS
[2018-08-29 19:14] LABS: Appearance,BF Hazy; Nucleated Cells, Body Fluid 120 /uL; RBC, Body Fluid 550 /uL
[2018-08-29 19:15] LABS: Mononuclear WBC,Body Fluid 51 %; Polynuclear WBC,Body Fluid 49 %; Total Cells Counted,Body Fluid 100
[2018-08-29 20:31] LABS: Glucose,Whole Blood 144 mg/dL (75-99)
--- NOTE | 2018-08-30 00:05 | PCN ---
PROCEDURE NOTE OPERATIVE REPORT: Bronchoscopy and bronchoalveolar lavage of the lingula and the left upper lobe. PREOPERATIVE DIAGNOSIS: Extensive left-sided pneumonia involving the left upper lobe and lingula. POSTOPERATIVE DIAGNOSIS: Extensive left sided pneumonia involving the left upper lobe and lingula. ANESTHESIA USED: IV conscious sedation. 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 PROCEDURE: The patient was prepared according to the Hugo protocol. Placed in a supine position, O2 was applied via nasal cannula, and we monitored her O2 saturation continuously, blood pressure was intermittently monitored, and cardiac rhythm was continuously monitored. After adequate IV conscious sedation, the bronchoscope was inserted through the right naris down to the area of the vocal cords. They were noted to be patent. Lidocaine was applied over the vocal cords, the bronchoscope was advanced further down to the trachea. A thorough examination was done of the trachea, right upper lobe, right middle lobe, right lower lobe, and these were basically unremarkable. The left upper lobe lingula and left lower lobe were examined, minimal purulent secretions were noted to be in the lingula. Otherwise, no evidence of any significant abnormalities noted visually during the bronchoscopy. Lavage of the left upper lobe and lingula were done, fluid was sent for different diagnostic studies. Procedure was well tolerated, no evidence of any immediate complications, and no blood loss whatsoever. MMODL / IJN: [id number] /
[2018-08-30 00:13] VITALS: RESP 18
[2018-08-30] MEDS: PIPERACILLIN-TAZOBACTAM 3.375 GM in DEXTROSE/WATER 1 50ML.BAG IVPB SCH ×2 (00:54→07:40)
[2018-08-30] MEDS: HEPARIN SODIUM,PORCINE 5,000 UNIT/ML 1 ML VIAL SQ SCH ×2 (00:54→07:40)
--- NOTE | 2018-08-30 02:32 | PN ---
PROGRESS NOTE DATE OF SERVICE: 08/29/2018. PRESENTING COMPLAINT: Short of breath. INTERVAL HISTORY: Patient admitted with severe left-sided pneumonia with septic shock and also asthma exacerbation. Did undergo bronchoscopy today. I do not have the formal report. Feels a bit better. Lying in bed, tired, tolerating diet, on oxygen. REVIEW OF SYSTEMS: Done for constitutional, cardiovascular, GI, pulmonary; relevant findings as above. CURRENT MEDICATIONS: Reviewed, that include IV Levaquin, IV Zosyn, IV Solu-Medrol. EXAMINATION: Afebrile, pulse 115, respiratory rate 20, blood pressure 127/69, pulse ox 96% on room air. GENERAL APPEARANCE: Sitting up, tired. EYES: Pupils equal. Conjunctivae normal. HEENT: External appearance of nose and ears normal. Oral cavity normal. NECK: JVD not raised. Mass not palpable. Respiratory effort increased. LUNGS: Decreased breath sounds on the left side. CARDIOVASCULAR: 1st and 2nd sounds. No edema. ABDOMEN: Soft, nontender. Liver and spleen not palpable. PSYCHIATRY: Alert and oriented 3. Mood and affect normal. INVESTIGATIONS: A 2D echo shows preserved LV function. Accu-Cheks are noted. ASSESSMENT: 1. Left lobe pneumonia causing sepsis, septic shock on presentation, with some associated left pleural effusion. 2. Intermittent asthma with acute exacerbation, improved. 3. Hyperlipidemia. 4. Acute lactic acidosis. 5. Microcytic anemia, for endoscopy down the road. 6. Status post bronchoscopy. PLAN: Will await the results of bronchoscopy culture results. Meanwhile, antibiotics are to continue. Will follow with Pulmonary. Care was discussed with the patient. MMODL / IJN: [id number] /
[2018-08-30] MEDS: LEVOFLOXACIN 750MG-D5W PMX 750 MG in DEXTROSE/WATER 1 150ML.BAG IVPB SCH (06:24)
[2018-08-30 07:18] VITALS: BP 97/58; TEMP 98.3
[2018-08-30 07:34] LABS: Glucose,Whole Blood 143 mg/dL (75-99)
[2018-08-30] MEDS: PANTOPRAZOLE 40 MG/10 ML VIAL IVP SCH (07:40)
[2018-08-30] MEDS: INSULIN ASPART 100 UNIT/ML 1 ML 10 ML VIAL SQ SCH ×2 (07:40→12:04)
[2018-08-30] MEDS: methylPREDNISolone SOD SUCCI 40 MG/ML 1 ML VIAL IV SCH (08:16)
[2018-08-30] MEDS: IPRATROPIUM-ALBUTEROL 3 ML NEB INHALATION SCH ×2 (08:38→12:20)
[2018-08-30 10:17] VITALS: BMI 32.4
--- NOTE | 2018-08-30 11:00 | XR ---
EXAMINATION TYPE: XR chest 1V portable DATE OF EXAM: 08/30/2018 COMPARISON: 08/28/2018 HISTORY: Post left bronchoscopy TECHNIQUE: Single frontal view of the chest is obtained. FINDINGS: Bilateral consolidation and small effusion. Hyperinflation. No pneumothorax. Interstitium stable. Heart size stable. Atherosclerotic change of the aorta. IMPRESSION: Bilateral consolidation and pleural effusion are stable.
[2018-08-30 12:00] LABS: Glucose,Whole Blood 118 mg/dL (75-99)
--- NOTE | 2018-08-30 12:28 | P.PN ---
Subjective Progress Note Date: 08/30/18 Principal diagnosis: Acute community-acquired left lung pneumonia. 58-year-old asthmatic feeling sick for almost a week coming into the hospital initially to [facility] for shortness of breath, pleuritic chest pain on the left, generalized fatigue and fever and cough and chest congestion. Chest x -ray was done and subsequently a CAT scan of the chest was completed and the patient was found to have a lingular patchy pneumonia and the patient was started on IV antibiotics and the patient was transferred to our hospital for further care. She had leukocytosis and upon arrival she was hypotensive with systolic in the mid 80s. She received 1 L of lactated Ringer in the emergency and she had also received 2 L I [facility]. Her systolic pressure measured is around 100. She has very lethargic. No altered mentation. No nausea or vomiting. No abdominal pain. No melanotic stool. No history of any GI bleeding or anemia. Hemoglobin was as low as 7.7. She has a microcytic. On 08/25/2018 I'm seeing this patient for a follow-up. The patient was admitted to the hospital for left lung pneumonia and sepsis. The patient is currently on a triple antibiotic coverage. She started having pleuritic left- sided chest pain. She is less short of breath compared to yesterday and she is on 2 L of oxygen by nasal cannula. She is still having some mild degree of sinus tachycardia due to hypotension as recovered and the patient has responded to fluids and she did not require any pressors. Currently she is running on normal saline at the rate of 100 mL an hour. The patient also received a unit of packed RBC and a previous colonoscopy that was done on this patient by [facility]ius was essentially within normal limits and the patient is again to be evaluated by general surgery. She does have an underlying iron deficiency anemia and iron levels are still pending for now. She is doing well. She is tolerating her diet. No nausea or vomiting. A follow-up chest x-ray has not been done today and this is in progress. Overall she is doing better and much more alert and responsive compared to yesterday. I saw the patient again on 08/26/2018, patient is feeling better, less pain, less cough, less shortness of breath, remains on triple antibiotics as noted by Dr. Bonds. Patient believes that she is much better today compared to yesterday. No fever no chills no hemoptysis, and no chest pain. She did receive a unit of packed RBCs for low hemoglobin. Her hemoglobin now is 8.7. All labs were reviewed, she had a relatively normal electrolytes, lactic acid on presentation was 3.9, no follow-up lactic acid was done. Clinically however the patient is recovering nicely from initial presentation of pneumonia and sepsis. On 08/27/2018 patient seen in follow-up on medical surgical floor. Vital chest x-ray has been completed this morning, and shows left upper lobe pneumonia associated with atelectasis, small bilateral pleural effusions, more so on the left. There is a patchy density at the right lung base. Overall slightly improved, less density in the left upper lobe. Patient remains on tube nasal cannula, her pulse ox is 98%, afebrile, hemodynamically stable. Patient has nonproductive cough, lung sounds are positive for coarse inspiratory crackles over bilateral lungs, more so in the left upper and lower lobes, crackles at the right base. Patient remains on abiotic coverage in the form of Levaquin and Zosyn, nebulized bronchodilators, clinically she denies any worsening shortness of breath, denies any chest pain, denies any pleurisy. Legionella urinary antigen is still pending. Today's labs were reviewed, sodium is 142, potassium is 3.9, chloride is 111, B1 is 22, creatinine 0.57. On 08/28/2018 patient seen in follow-up on medical surgical floor, she is more short of breath this morning, and she was more short of breath last night. Ultrasound of the chest was obtained evaluate the bilateral pleural effusions, and it showed 9 cm pocket of fluid on the right. And 1.6 cm pocket on the left. Patient is afebrile, lung sounds are diminished at the right base, with scattered crackles. Patient is on 3 L per nasal cannula, his pulse ox is 96%. No results in the Legionella urinary antigen. Patient continues on Levaquin and Zosyn. The patient is seen again today on 08/29/2018 in follow-up on the regular medical floor. She is awake and alert in no acute distress. She is still having ongoing issues with shortness of breath, dyspnea on exertion, loose nonproductive cough. The plan is for bronchoscopy with BAL today with Dr. Mixon. She remains afebrile. Maintaining O2 saturations in the mid 90s on 2 L /m per nasal cannula. Hemodynamically stable. She remains on bronchodilators, Zosyn and Levaquin along with IV Solu-Medrol and IV diuretics. The patient is seen again today 08/30/2018 in follow-up on the regular medical floor. She is currently resting comfortably in bed. She states she slept wonderfully last night. No cough or congestion. No shortness of breath. She is maintaining good O2 saturations in the 90s at rest and while ambulating in the hallway. She is quite anxious to go home. Bronchial wash pending. No growth thus far. Objective - Vital Signs Vital signs: Vital Signs Temp 98.3 F 08/30/18 07:00 Pulse 88 08/30/18 12:22 Resp 18 08/30/18 07:00 BP 97/58 08/30/18 07:00 Pulse Ox 94 L 08/30/18 08:52 Intake & Output 08/29/18 08/30/18 08/30/18 18:59 06:59 18:59 Intake Total 300 900 320 Balance 300 900 320 Weight 75.3 kg Intake: IV 100 Oral 200 900 320 Other: # Voids 3 2 # Bowel Movements 0 - Exam GENERAL EXAM: Alert, active, comfortable in no apparent distress. HEAD: Normocephalic. EYES: Normal reaction of pupils, equal size. NOSE: Clear with pink turbinates. THROAT: No erythema or exudates. NECK: No masses, no JVD. CHEST: No chest wall deformity. LUNGS: Equal air entry with scattered rhonchi more so on the left. CVS: S1 and S2 normal with no audible murmur, regular rhythm. ABDOMEN: No hepatosplenomegaly, normal bowel sounds, no guarding or rigidity. SPINE: No scoliosis or deformity SKIN: No rashes CENTRAL NERVOUS SYSTEM: No focal deficits, tone is normal in all 4 extremities. EXTREMITIES: There is no peripheral edema. No clubbing, no cyanosis. Peripheral pulses are intact. - Labs CBC & Chem 7: 08/25/18 04:29 08/28/18 10:54 Labs: Abnormal Lab Results - Last 24 Hours (Table) 08/29/18 08/29/18 08/30/18 Range/Units 17:37 20:28 07:26 POC Glucose (mg/dL) 159 H 144 H 143 H (75-99) mg/dL 08/30/18 Range/Units 11:40 POC Glucose (mg/dL) 118 H (75-99) mg/dL Microbiology - Last 24 Hours (Table) 08/29/18 12:24 Gram Stain - Preliminary Bronchial Washings - Left Bronchial Washings Culture - Preliminary 08/29/18 12:24 Acid Fast Bacilli Culture - Preliminary Bronchial Washings - Left 08/29/18 12:24 Fungal Culture - Preliminary Bronchial Washings - Left Assessment and Plan Assessment: Assessment: 1. acute septic shock secondary to community-acquired pneumonia, involving left lung mostly. patient required fluid boluses upon presentation and she required placement on norepinephrine. Recovered. Status post bronchoscopy with BAL. No growth to date. 2. hypotension secondary to above, resolved. 3. acute lactic acidosis on presentation secondary to sepsis 4. 9 cm pleural fluid effusion on the right, with 1.6 cm pocket on the left 5. chronic bronchial asthma presently inactive 6. microcytic anemia currently under investigation, patient did receive a unit of packed RBCs on admission. Presently on hemoglobin is 8.7. Plan: The patient was seen and evaluated by Dr. Mixon. The plan is for bronchoscopy with BAL. Bronchial wash will be sent for fluid analysis and cytology. Continue with the current treatment plan. We'll continue to follow. I, the cosigning physician, performed a history & physical examination of the patient. Lungs sounds clear diminished in the left base.g. Maintaining good O2 saturations in the 90s on room air. I discussed the assessment and plan of care with my nurse practitioner, Lila Bunch. I attest to the above note as dictated by her.
[2018-08-30] MEDS ORDERED: FLUCONAZOLE 100 MG TAB PO ONE (12:30)
[2018-08-30] MEDS ORDERED: predniSONE 20 MG TAB PO STA (12:30)
[2018-08-30 12:31] VITALS: PULSE 84
--- NOTE | 2018-08-30 20:24 | DS ---
DISCHARGE SUMMARY DATE OF ADMISSION: 08/24/18. DATE OF DISCHARGE: 08/30/18. FINAL DIAGNOSES: 1. Left lobe pneumonia causing sepsis, septic shock on presentation. 2. Intermittent asthma with acute exacerbation. 3. Hyperlipidemia. 4. Acute lactic acidosis from sepsis. 5. Microcytic anemia for endoscopy down the road. PROCEDURE: Bronchoscopy with lavage. HOSPITAL COURSE: This patient with known asthma, presented with pneumonia, sepsis. X-ray was pretty significantly involved on the left side. Did really well after bronchoscopy. Doing much better today. Pulse oxing well on room air including 94%. Care was discussed with Lila with Pulmonary. Patient can be discharged. EXAMINATION: Pulse 94, respiratory 18, afebrile, pulse ox 94% on room air. Lungs: Improved air entry. Cardiovascular: 1st and 2nd sounds normal. CONSULTATIONS: Dr. Mixon from Pulmonary and Dr. Alfredo and Dr. Caraballo from surgery for the microscopic anemia. The patient's 2D echocardiogram was normal with preserved LV function. Care was discussed with the patient. Questions were answered. Discharge planning more than 35 minutes. DISCHARGE MEDICATIONS: 1. Tylenol 650 mg q.4 p.r.n. 2. Ventolin 1 or 2 puffs q.4 p.r.n. nebulizer. 3. Ventolin 2.5 q.4h p.r.n. 4. Celexa 20 mg a day. 5. Pravachol 20 mg p.o. daily. 6. Augmentin 875 1 tablet p.o. q.12; 10 tablets. 7. Diflucan 200 mg a day for 7 days. 8. Prednisone taper. FOLLOWUP: Follow up with Dr. Cuellar in 1 week. Follow up with Dr. Mixon in 1 week. Follow up with Dr. Schaffer in 10 days for possible colonoscopy. MMODL / IJN: [id number] /
[2018-08-31] MEDS ORDERED: LEVOFLOXACIN 750 MG TAB PO SCH (07:00)
== END 2018-08-30 14:26 | disposition home or self-care (01) | DRG 853 ==
LOC: EC 11:55 → 6ICU 13:23 → 4MS4W 08-25 15:04
PROVIDERS: ADMIT Hospitalist; ATTEND Hospitalist
PROC: 30233N1 Transfusion of Nonautologous Red Blood Cells into Peripheral Vein, Percutaneous Approach (ICD-10-PCS; 2018-08-24)
PROC: 0B9G8ZX Drainage of Left Upper Lung Lobe, Via Natural or Artificial Opening Endoscopic, Diagnostic (ICD-10-PCS; 2018-08-29)
PROC: 0B9H8ZX Drainage of Lung Lingula, Via Natural or Artificial Opening Endoscopic, Diagnostic (ICD-10-PCS; principal; 2018-08-29 12:00)
DX: A41.9 Sepsis, unspecified organism (principal); J18.9 Pneumonia, unspecified organism; R65.21 Severe sepsis with septic shock; J45.21 Mild intermittent asthma with (acute) exacerbation; J90 Pleural effusion, not elsewhere classified; J98.11 Atelectasis; D50.9 Iron deficiency anemia, unspecified; E78.5 Hyperlipidemia, unspecified; T38.0X5A Adverse effect of glucocorticoids and synthetic analogues, initial encounter; K64.9 Unspecified hemorrhoids; R73.9 Hyperglycemia, unspecified; K21.9 Gastro-esophageal reflux disease without esophagitis; R07.81 Pleurodynia; Z79.899 Other long term (current) drug therapy; Z88.1 Allergy status to other antibiotic agents; Z88.2 Allergy status to sulfonamides
CPT/HCPCS: 31624; 36415; 71045; 71046; 76604; 80048; 80053; 83036; 83540; 83550; 83605; 85025; 86850; 86900; 86901; 86920; 87070; 87102; 87116; 87205; 87206; 87252; 87496; 87498; 87502; 87529; 87634; 87798; 88108; 88305; 89050; 93306; 94640; 94760; 96361; 96374; 96375; 99285

== ENCOUNTER 2018-09-16 10:47 | Observation (INO) | payer OTHER ==
--- NOTE | 2018-09-16 12:15 | ED ---
General Adult HPI - General Chief complaint: GI Bleed Stated complaint: Recheck Labs Time Seen by Provider: 09/16/18 11:57 Source: patient, RN notes reviewed, old records reviewed Mode of arrival: ambulatory Limitations: no limitations - History of Present Illness Initial comments: 58-year-old female presents for evaluation of anemia and dark stool. Patient was recently admitted to the hospital with sepsis and anemia. She was transfused at that time. She denies any history of GI bleed. She does have history of gastric reflux. She states that over the past several days she noticed that her stool is very dark. Denies bright red rectal bleeding. Denies abdominal pain. Denies fever or chills. She does report some generalized fatigue and weakness. She is not on any blood thinners. She states she had a colonoscopy and upper GI endoscopy proximally 2 years ago. - Related Data Home Medications Medication Instructions Recorded Confirmed Albuterol Inhaler [Ventolin Hfa 1 - 2 puff INHALATION RT-Q4H PRN 08/24/18 Inhaler] Citalopram Hydrobromide 20 mg PO DAILY 08/24/18 09/16/18 [Citalopram HBr] Pravastatin Sodium [Pravachol] 20 mg PO HS 08/24/18 09/16/18 Esomeprazole Magnesium [NexIUM] 20 mg PO DAILY PRN 09/16/18 09/16/18 Fluticasone/Vilanterol [Breo 1 puff INHALATION RT-DAILY 09/16/18 09/16/18 Ellipta 100-25 Mcg Inhaler] Montelukast [Singulair] 10 mg PO HS 09/16/18 09/16/18 Allergies Allergy/AdvReac Type Severity Reaction Status Date / Time sulfamethoxazole AdvReac Nausea & Verified 09/16/18 12:24 [From Bactrim] Vomiting trimethoprim [From Bactrim] AdvReac Nausea & Verified 09/16/18 12:24 Vomiting Review of Systems ROS Statement: Those systems with pertinent positive or pertinent negative responses have been documented in the HPI. ROS Other: All systems not noted in ROS Statement are negative. Past Medical History Past Medical History: Asthma, Hyperlipidemia, Pneumonia History of Any Multi-Drug Resistant Organisms: None Reported Past Surgical History: Tubal Ligation Past Psychological History: No Psychological Hx Reported Smoking Status: Never smoker Past Alcohol Use History: Occasional Past Drug Use History: None Reported General Exam Limitations: no limitations General appearance: alert, in no apparent distress Head exam: Present: atraumatic, normocephalic Eye exam: Present: normal appearance, PERRL, EOMI ENT exam: Present: normal exam, mucous membranes dry Neck exam: Present: normal inspection. Absent: tenderness, meningismus Respiratory exam: Present: normal lung sounds bilaterally. Absent: respiratory distress, wheezes Cardiovascular Exam: Present: normal rhythm, tachycardia GI/Abdominal exam: Present: soft. Absent: distended, tenderness, guarding, rebound Rectal exam: Present: normal inspection. Absent: black stool, bloody stool Extremities exam: Present: normal inspection, normal capillary refill. Absent: tenderness Neurological exam: Present: alert, oriented X3 Psychiatric exam: Present: normal affect, normal mood Skin exam: Present: warm, dry, intact. Absent: cyanosis, diaphoretic Course Vital Signs 09/16/18 09/16/18 11:46 13:56 Temperature 98.6 F 97.3 F L Pulse Rate 115 H 102 H Respiratory 18 16 Rate Blood Pressure 139/69 137/85 O2 Sat by Pulse 98 99 Oximetry EKG Findings - EKG Comments: EKG Findings:: EKG: Sinus tachycardia, ventricular rate 110, NV interval 136, QRS duration 82, QTC [address] segment elevation. Medical Decision Making - Medical Decision Making 4-year-old female presenting with anemia and melanotic stool. Patient reports history of melanotic stool over the past 3 days. On exam there is no stool in the rectal vault for adequate Hemoccult testing. Laboratory studies reveal hemoglobin 9.1 which is anemic but stable for this patient. Remainder of her workup is unremarkable the emergency department. She will be kept in observation for serial hemoglobin testing as well as consultation by general surgery. She was started on IV Protonix in the emergency department. Case discussed with admitting physician Dr. Santoyo. - Lab Data Result diagrams: 09/16/18 12:30 09/16/18 12:30 Lab Results 09/16/18 09/16/18 09/16/18 Range/Units 12:30 12:30 12:30 WBC 6.1 (3.8-10.6) k/uL RBC 3.89 (3.80-5.40) m/uL Hgb 9.1 L (11.4-16.0) gm/dL Hct 29.5 L (34.0-46.0) % MCV 75.7 L (80.0-100.0) fL MCH 23.4 L (25.0-35.0) pg MCHC 30.9 L (31.0-37.0) g/dL RDW 20.1 H (11.5-15.5) % Plt Count 350 (150-450) k/uL Neutrophils % 71 % Lymphocytes % 18 % Monocytes % 7 % Eosinophils % 0 % Basophils % 0 % Neutrophils # 4.4 (1.3-7.7) k/uL Lymphocytes # 1.1 (1.0-4.8) k/uL Monocytes # 0.4 (0-1.0) k/uL Eosinophils # 0.0 (0-0.7) k/uL Basophils # 0.0 (0-0.2) k/uL Hypochromasia Marked Anisocytosis Moderate Microcytosis Moderate APTT (22.0-30.0) sec Sodium 140 (137-145) mmol/L Potassium 4.5 (3.5-5.1) mmol/L Chloride 109 H (98-107) mmol/L Carbon Dioxide 24 (22-30) mmol/L Anion Gap 7 mmol/L BUN 12 (7-17) mg/dL Creatinine 0.51 L (0.52-1.04) mg/dL Est GFR (CKD-EPI)AfAm >90 (>60 ml/min/1.73 sqM) Est GFR (CKD-EPI)NonAf >90 (>60 ml/min/1.73 sqM) Glucose 101 H (74-99) mg/dL Plasma Lactic Acid Jorge Luis (0.7-2.0) mmol/L Calcium 9.7 (8.4-10.2) mg/dL Magnesium 1.9 (1.6-2.3) mg/dL Total Bilirubin 0.3 (0.2-1.3) mg/dL AST 24 (14-36) U/L ALT 34 (9-52) U/L Alkaline Phosphatase 91 (38-126) U/L Total Creatine Kinase 27 L (30-135) U/L CK-MB (CK-2) 0.4 (0.0-2.4) ng/mL CK-MB (CK-2) Rel Index 1.5 Troponin I <0.012 (0.000-0.034) ng/mL Total Protein 6.3 (6.3-8.2) g/dL Albumin 3.5 (3.5-5.0) g/dL Stool Occult Blood (Negative) 09/16/18 09/16/18 09/16/18 Range/Units 12:30 12:30 12:30 WBC (3.8-10.6) k/uL RBC (3.80-5.40) m/uL Hgb (11.4-16.0) gm/dL Hct (34.0-46.0) % MCV (80.0-100.0) fL MCH (25.0-35.0) pg MCHC (31.0-37.0) g/dL RDW (11.5-15.5) % Plt Count (150-450) k/uL Neutrophils % % Lymphocytes % % Monocytes % % Eosinophils % % Basophils % % Neutrophils # (1.3-7.7) k/uL Lymphocytes # (1.0-4.8) k/uL Monocytes # (0-1.0) k/uL Eosinophils # (0-0.7) k/uL Basophils # (0-0.2) k/uL Hypochromasia Anisocytosis Microcytosis APTT 19.6 L (22.0-30.0) sec Sodium (137-145) mmol/L Potassium (3.5-5.1) mmol/L Chloride (98-107) mmol/L Carbon Dioxide (22-30) mmol/L Anion Gap mmol/L BUN (7-17) mg/dL Creatinine (0.52-1.04) mg/dL Est GFR (CKD-EPI)AfAm (>60 ml/min/1.73 sqM) Est GFR (CKD-EPI)NonAf (>60 ml/min/1.73 sqM) Glucose (74-99) mg/dL Plasma Lactic Acid Jorge Luis 1.6 (0.7-2.0) mmol/L Calcium (8.4-10.2) mg/dL Magnesium (1.6-2.3) mg/dL Total Bilirubin (0.2-1.3) mg/dL AST (14-36) U/L ALT (9-52) U/L Alkaline Phosphatase (38-126) U/L Total Creatine Kinase (30-135) U/L CK-MB (CK-2) (0.0-2.4) ng/mL CK-MB (CK-2) Rel Index Troponin I (0.000-0.034) ng/mL Total Protein (6.3-8.2) g/dL Albumin (3.5-5.0) g/dL Stool Occult Blood Negative (Negative) Disposition Clinical Impression: Melena, Upper GI bleed Disposition: ADMITTED IP TO THIS [facility] Condition: Stable Is patient prescribed a controlled substance at d/c from ED?: No Referrals: Kermit Cuellar MD [Primary Care Provider] - 1-2 days Decision to Admit Reason: Admit from EC Decision Date: 09/16/18 Decision Time: 14:11
[2018-09-16 12:57] LABS: Anisocytosis Moderate; Basophils % (A) 0 %; Eosinophils % (A) 0 %; HCT 29.5 % (34.0-46.0); HGB 9.1 gm/dL (11.4-16.0); Hypochromasia Marked; Lymphocytes # (A) 1.1 k/uL (1.0-4.8); Lymphocytes % (A) 18 %; MCH 23.4 pg (25.0-35.0); MCHC 30.9 g/dL (31.0-37.0); MCV 75.7 fL (80.0-100.0); Mean Platelet Volume 6.7; Microcytosis Moderate; Monocytes # (A) 0.4 k/uL (0-1.0); Monocytes % (A) 7 %; Neutrophils # (A) 4.4 k/uL (1.3-7.7); Neutrophils % (A) 71 %; Platelet Count 350 k/uL (150-450); RBC 3.89 m/uL (3.80-5.40); RDW 20.1 % (11.5-15.5); WBC 6.1 k/uL (3.8-10.6)
[2018-09-16 13:08] LABS: ALT 34 U/L (9-52); AST 24 U/L (14-36); Albumin 3.5 g/dL (3.5-5.0); Alkaline Phosphatase 91 U/L (38-126); Anion Gap 7 mmol/L; Blood Urea Nitrogen 12 mg/dL (7-17); Calcium 9.7 mg/dL (8.4-10.2); Carbon Dioxide 24 mmol/L (22-30); Chloride 109 mmol/L (98-107); Glucose 101 mg/dL (74-99); Magnesium 1.9 mg/dL (1.6-2.3); Potassium 4.5 mmol/L (3.5-5.1); Sodium 140 mmol/L (137-145); Total Bilirubin 0.3 mg/dL (0.2-1.3); Total Protein 6.3 g/dL (6.3-8.2)
[2018-09-16] MEDS ORDERED: SODIUM CHLORIDE 0.9% 500 ML 500 ML IV ONE (13:08)
[2018-09-16] MEDS ORDERED: PANTOPRAZOLE 40 MG/10 ML VIAL IVP STA (13:08)
[2018-09-16 13:17] LABS: Creatine Kinase 27 U/L (30-135)
[2018-09-16 13:29] LABS: Creatine Kinase MB 0.4 ng/mL (0.0-2.4); Troponin I <0.012 ng/mL (0.000-0.034)
[2018-09-16] MEDS ORDERED: NALOXONE 0.4 MG/ML 1 ML VIAL IV PRN (14:08)
[2018-09-16 15:28] VITALS: BMI 27.1
[2018-09-16] MEDS: SODIUM CHLORIDE 0.9% 1,000 ML IV SCH (17:16)
--- NOTE | 2018-09-16 17:36 | P.GSCN ---
History of Present Illness Consult date: 09/16/18 Reason for Consult: Anemia History of present illness: The patient is a 58-year-old female who presents feeling weak. She was hospitalized earlier in the month with pneumonia and found to be anemic at that time. She had 1 unit of packed red blood cells given. She has noticed some dark stools lately. She has some reflux and takes some medication as needed but nothing regular. She had a upper endoscopy with dilation of an esophageal stricture in October 2016. A colonoscopy was done by Dr. Schaffer at that time and was unremarkable. The patient denies nausea, vomiting, loss of appetite. Her breathing is much improved from previous admission Review of Systems All systems: negative Past Medical History Past Medical History: Asthma, GERD/Reflux, Hyperlipidemia, Pneumonia Additional Past Medical History / Comment(s): anemia, sepsis History of Any Multi-Drug Resistant Organisms: None Reported Past Surgical History: Tonsillectomy, Tubal Ligation Past Anesthesia/Blood Transfusion Reactions: No Reported Reaction Past Psychological History: No Psychological Hx Reported Additional Psychological History / Comment(s): Home with family Smoking Status: Never smoker Past Alcohol Use History: Occasional Past Drug Use History: None Reported - Past Family History Mother Family Medical History: Diabetes Mellitus, Myocardial Infarction ([place]) Father Additional Family Medical History / Comment(s): colon cancer Medications and Allergies Home Medications Medication Instructions Recorded Confirmed Type Albuterol Inhaler [Ventolin Hfa 1 - 2 puff INHALATION RT-Q4H PRN 08/24/18 History Inhaler] Citalopram Hydrobromide 20 mg PO DAILY 08/24/18 09/16/18 History [Citalopram HBr] Pravastatin Sodium [Pravachol] 20 mg PO HS 08/24/18 09/16/18 History Esomeprazole Magnesium [NexIUM] 20 mg PO DAILY PRN 09/16/18 09/16/18 History Fluticasone/Vilanterol [Breo 1 puff INHALATION RT-DAILY 09/16/18 09/16/18 History Ellipta 100-25 Mcg Inhaler] Montelukast [Singulair] 10 mg PO HS 09/16/18 09/16/18 History Allergies Allergy/AdvReac Type Severity Reaction Status Date / Time sulfamethoxazole AdvReac Nausea & Verified 09/16/18 12:24 [From Bactrim] Vomiting trimethoprim [From Bactrim] AdvReac Nausea & Verified 09/16/18 12:24 Vomiting Surgical - Exam Osteopathic Statement: *. No significant issues noted on an osteopathic structural exam other than those noted in the History and Physical/Consult. Vital Signs Temp Pulse Resp BP Pulse Ox 98.6 F 115 H 18 139/69 98 09/16/18 11:46 09/16/18 11:46 09/16/18 11:46 09/16/18 11:46 09/16/18 11:46 - General well developed, well nourished, no distress - Eyes normal ocular movement - Neck trachea midline, no lymphadectomy - Respiratory normal expansion, clear to auscultation - Cardiovascular Rhythm: regular - Abdomen Abdomen: soft, non tender, bowel sounds, no organomegaly, no masses, no guarding , no rigid, no rebound, no distended Results - Labs 09/16/18 12:30 09/16/18 12:30 Abnormal Lab Results - Last 24 Hours (Table) 09/16/18 09/16/18 09/16/18 Range/Units 12:30 12:30 12:30 Hgb 9.1 L (11.4-16.0) gm/dL Hct 29.5 L (34.0-46.0) % MCV 75.7 L (80.0-100.0) fL MCH 23.4 L (25.0-35.0) pg MCHC 30.9 L (31.0-37.0) g/dL RDW 20.1 H (11.5-15.5) % APTT (22.0-30.0) sec Chloride 109 H (98-107) mmol/L Creatinine 0.51 L (0.52-1.04) mg/dL Glucose 101 H (74-99) mg/dL Total Creatine Kinase 27 L (30-135) U/L 09/16/18 Range/Units 12:30 Hgb (11.4-16.0) gm/dL Hct (34.0-46.0) % MCV (80.0-100.0) fL MCH (25.0-35.0) pg MCHC (31.0-37.0) g/dL RDW (11.5-15.5) % APTT 19.6 L (22.0-30.0) sec Chloride (98-107) mmol/L Creatinine (0.52-1.04) mg/dL Glucose (74-99) mg/dL Total Creatine Kinase (30-135) U/L Diabetes panel 09/16/18 Range/Units 12:30 Sodium 140 (137-145) mmol/L Potassium 4.5 (3.5-5.1) mmol/L Chloride 109 H (98-107) mmol/L Carbon Dioxide 24 (22-30) mmol/L BUN 12 (7-17) mg/dL Creatinine 0.51 L (0.52-1.04) mg/dL Glucose 101 H (74-99) mg/dL Calcium 9.7 (8.4-10.2) mg/dL AST 24 (14-36) U/L ALT 34 (9-52) U/L Alkaline Phosphatase 91 (38-126) U/L Total Protein 6.3 (6.3-8.2) g/dL Albumin 3.5 (3.5-5.0) g/dL Calcium panel 09/16/18 Range/Units 12:30 Calcium 9.7 (8.4-10.2) mg/dL Albumin 3.5 (3.5-5.0) g/dL Pituitary panel 09/16/18 Range/Units 12:30 Sodium 140 (137-145) mmol/L Potassium 4.5 (3.5-5.1) mmol/L Chloride 109 H (98-107) mmol/L Carbon Dioxide 24 (22-30) mmol/L BUN 12 (7-17) mg/dL Creatinine 0.51 L (0.52-1.04) mg/dL Glucose 101 H (74-99) mg/dL Calcium 9.7 (8.4-10.2) mg/dL Adrenal panel 09/16/18 Range/Units 12:30 Sodium 140 (137-145) mmol/L Potassium 4.5 (3.5-5.1) mmol/L Chloride 109 H (98-107) mmol/L Carbon Dioxide 24 (22-30) mmol/L BUN 12 (7-17) mg/dL Creatinine 0.51 L (0.52-1.04) mg/dL Glucose 101 H (74-99) mg/dL Calcium 9.7 (8.4-10.2) mg/dL Total Bilirubin 0.3 (0.2-1.3) mg/dL AST 24 (14-36) U/L ALT 34 (9-52) U/L Alkaline Phosphatase 91 (38-126) U/L Total Protein 6.3 (6.3-8.2) g/dL Albumin 3.5 (3.5-5.0) g/dL Assessment and Plan (1) Anemia Current Visit: No Status: Acute Code(s): D64.9 - ANEMIA, UNSPECIFIED SNOMED Code(s): 434448592 (2) Personal history of peptic ulcer disease Current Visit: Yes Status: Acute Code(s): Z87.11 - PERSONAL HISTORY OF PEPTIC ULCER DISEASE SNOMED Code(s): 396331685 Plan: Due to the personal history of ulcer disease will do a EGD in her. Procedure risks and complications were discussed. Her stool was Occult negative. She did have a normal colonoscopy 2 years ago so no plan for colonoscopy at this time.
[2018-09-16 19:46] LABS: Anisocytosis Moderate; Basophils % (A) 0 %; Eosinophils % (A) 0 %; HCT 26.5 % (34.0-46.0); Hypochromasia Marked; Lymphocytes # (A) 1.3 k/uL (1.0-4.8); Lymphocytes % (A) 26 %; MCH 23.2 pg (25.0-35.0); MCHC 30.3 g/dL (31.0-37.0); MCV 76.6 fL (80.0-100.0); Microcytosis Moderate; Monocytes # (A) 0.3 k/uL (0-1.0); Monocytes % (A) 7 %; Neutrophils # (A) 3.1 k/uL (1.3-7.7); Neutrophils % (A) 63 %; Platelet Count 313 k/uL (150-450); RBC 3.46 m/uL (3.80-5.40); RDW 20.3 % (11.5-15.5); WBC 4.9 k/uL (3.8-10.6)
[2018-09-16] MEDS: PANTOPRAZOLE 40 MG/10 ML VIAL IVP SCH (21:16)
[2018-09-16] MEDS ORDERED: ALPRAZolam 0.25 MG TAB PO PRN (22:04)
[2018-09-16] MEDS ORDERED: ACETAMINOPHEN TAB 325 MG TAB PO PRN (22:04)
[2018-09-16] MEDS ORDERED: ONDANSETRON 4 MG/2 ML VIAL IVP PRN (22:04)
[2018-09-16] MEDS ORDERED: MELATONIN 3 MG TABLET PO PRN (22:04)
[2018-09-16] MEDS ORDERED: MONTELUKAST 10 MG TAB PO SCH (22:15)
[2018-09-16] MEDS ORDERED: PRAVASTATIN SODIUM 20 MG TAB PO SCH (22:15)
--- NOTE | 2018-09-16 22:54 | HP ---
HISTORY AND PHYSICAL DATE OF ADMISSION: September 16, 2018. DATE OF SERVICE: September 16, 2018. PRESENTING COMPLAINT: Dark stools. HISTORY OF PRESENTING COMPLAINT: A very pleasant 58-year-old patient of Dr. Cuellar. Chronic stable medical conditions include asthma, hyperlipidemia, GERD. The patient has had dark stool for the last 3 or 4 days. Does feel tired all the time. The patient may take Aleve maybe every 2 weeks. Sometimes for a headache. Often takes Tylenol though. The patient presented to the ER and was found to have a hemoglobin of 9.1, repeat hemoglobin was 8. The patient has got microcytic anemia. No dizziness. No lightheadedness. No abdominal pain. The patient did have a colonoscopy by Dr. Schaffer 2 years ago, admitted to the ER. REVIEW OF SYSTEMS: CONSTITUTIONAL: Weak and tired. HEENT none. RESPIRATORY: None. CARDIOVASCULAR none. GASTROINTESTINAL as above. none. MUSCULOSKELETAL none. DERMATOLOGICAL, HEMATOLOGIC, LYMPHATIC: none. PSYCHIATRY: None. NEUROLOGICAL: None. PAST MEDICAL HISTORY: Of asthma, hyperlipidemia, GERD. PAST SURGICAL HISTORY: Tonsillectomy and tubal ligation. SOCIAL HISTORY: . Alcohol occasionally. Does not smoke. 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 FAMILY HISTORY: Diabetes, myocardial infarction, colon cancer. HOME MEDICATIONS: 1. Pravachol 20 mg q.h.s. 2. Singulair 10 mg q.h.s. 3. Breo Ellipta 10/25 1 puff daily. 4. Nexium 20 mg daily p.r.n. 5. Celexa 20 mg daily. 6. Ventolin HFA 1 or 2 puffs q.4 p.r.n. ALLERGIES: BACTRIM. PHYSICAL EXAMINATION: VITAL SIGNS: Vital signs on presentation, temperature 98.6, pulse 115, respiratory 18, blood pressure 139/69, pulse ox 98% on room air. GENERAL APPEARANCE: Average build, lying in bed, awake. EYES: Pupils equal. Conjunctivae pale. HEENT: External appearance of nose and ears normal. Oral cavity normal. NECK: JVD not raised. Mass not palpable. RESPIRATORY: Effort normal. LUNGS are clear. CARDIOVASCULAR: 1st and 2nd sounds normal. No edema. ABDOMEN: Soft, nontender. Liver and spleen not palpable. LYMPHATICS: No lymph nodes palpable in the neck and axilla. PSYCHIATRY: Alert and oriented x3. Mood and affect normal. NEUROLOGICAL: Pupils equal. Cranial nerves grossly intact. Power and sensation grossly intact. INVESTIGATIONS: White count 6.1, hemoglobin 9.1, repeat is 8, MCV is down, platelets 350, potassium 4.5, BUN 12, creatinine 0.51. ASSESSMENT: 1. Acute gastrointestinal bleed. Patient presented with dark stools with normal colonoscopy over 2 years ago. The patient has got microcytic anemia. Does take Aleve occasionally. 2. Acute blood loss anemia. Patient dropped hemoglobin down to 8. The patient does feel weak and tired and is sinus tachycardia. Hence, being symptomatic, we will go and give the patient a unit of blood. 3. Moderate persistent asthma, stable. 4. Hyperlipidemia. 5. Gastroesophageal reflux disease. PLAN: The patient did get a unit of blood. Home medications will be resumed. The patient is seen by Dr. Dias from General surgery. Plan do EGD tomorrow morning. Care was discussed with the patient. We will check hemoglobin in the morning. Copy to Dr. Cuellar. MMNIRMALA / EBONIE: [id number] /
[2018-09-17 07:39] VITALS: RESP 16
[2018-09-17] MEDS ORDERED: LIDOCAINE 1% INJ 10MG/ML (20 ML MDV) ONE (07:53)
[2018-09-17] MEDS ORDERED: PROPOFOL 10 MG/ML 20 ML VIAL IV ONE (07:53)
[2018-09-17] MEDS ORDERED: LACTATED RINGERS 1,000 ML IV ONE (07:55)
[2018-09-17] MEDS ORDERED: SYMBICORT 80-4.5 MCG INHALER INHALATION SCH (08:00)
--- NOTE | 2018-09-17 08:18 | P.PCN ---
Date of Procedure: 09/17/18 Preoperative Diagnosis: anemia Postoperative Diagnosis: anemia, hiatal hernia, Schatzki's ring Procedure(s) Performed: EGD with dilation Anesthesia: MAC Surgeon: Mary Lou Dias Pathology: none sent Condition: stable Disposition: PACU Indications for Procedure: Patient presented with anemia. She's had a previous EGD with dilation by myself in 2016. Colonoscopy by Dr. Schaffer at that time was normal Description of Procedure: The patient's taken the endoscopy suite were gastroscope is passed per mouth to the third and fourth portions of the duodenum. The pharynx is unremarkable. The esophagus is without evidence of esophagitis or mass lesion. There is evidence of a Schatzki's ring at the GE junction I'll hesitation with passage of the endoscope. She has a fixed hiatal hernia. The stomach, pylorus, duodenum are otherwise without evidence of mass lesion, ulcer, other mucosal abnormality. No evidence of new or old blood in the upper digestive tract. Since the patient has had a stricture dilated in the past and is having some dysphagia symptoms nondecision was made to do a dilation. She's progressively dilated up to 20 mm. There is a little bit of losing with no active bleeding. She tolerated the procedure without difficulty and was taken recovery room in satisfactory condition. Recommend medical workup for the anemia.
[2018-09-17] MEDS: PANTOPRAZOLE 40 MG/10 ML VIAL IVP SCH (08:36)
[2018-09-17] MEDS ORDERED: CITALOPRAM HYDROBROMIDE 20 MG TAB PO SCH (09:00)
[2018-09-17 11:22] LABS: Anisocytosis Moderate; Basophils % (A) 1 %; Eosinophils % (A) 0 %; HCT 32.8 % (34.0-46.0); HGB 10.2 gm/dL (11.4-16.0); Hypochromasia Marked; Lymphocytes # (A) 0.9 k/uL (1.0-4.8); Lymphocytes % (A) 20 %; MCH 24.6 pg (25.0-35.0); MCHC 31.1 g/dL (31.0-37.0); Mean Platelet Volume 7.1; Microcytosis Slight; Monocytes # (A) 0.3 k/uL (0-1.0); Monocytes % (A) 6 %; Neutrophils # (A) 3.1 k/uL (1.3-7.7); Neutrophils % (A) 70 %; Platelet Count 323 k/uL (150-450); Poikilocytosis Slight; RBC 4.16 m/uL (3.80-5.40); RDW 20.3 % (11.5-15.5); WBC 4.4 k/uL (3.8-10.6)
[2018-09-17 11:37] LABS: ALT 37 U/L (9-52); AST 23 U/L (14-36); Albumin 3.2 g/dL (3.5-5.0); Alkaline Phosphatase 82 U/L (38-126); Anion Gap 5 mmol/L; Blood Urea Nitrogen 7 mg/dL (7-17); Carbon Dioxide 23 mmol/L (22-30); Chloride 111 mmol/L (98-107); Glucose 148 mg/dL (74-99); Potassium 4.4 mmol/L (3.5-5.1); Sodium 139 mmol/L (137-145); Total Bilirubin 0.5 mg/dL (0.2-1.3); Total Protein 5.8 g/dL (6.3-8.2)
[2018-09-17] MEDS: SODIUM CHLORIDE 0.9% 1,000 ML IV SCH (14:34)
[2018-09-17 15:05] VITALS: PULSE 99; TEMP 99.5
[2018-09-17 15:06] VITALS: BP 146/86
--- NOTE | 2018-09-18 00:31 | DS ---
DISCHARGE SUMMARY DATE OF ADMISSION: 09/16/2018. DATE OF DISCHARGE: 09/17/2018. FINAL DIAGNOSES: 1. Acute gastrointestinal bleed, site undetermined. 2. Acute blood loss anemia. The patient did get a unit of blood for symptomatic anemia. 3. Moderate persistent asthma, stable. 4. Hyperlipidemia. 5. Gastroesophageal reflux disease. HOSPITAL COURSE: This pleasant 58-year-old patient presented with some dark stools. EGD was unremarkable. The patient did have a colonoscopy 2 years ago. The patient's hemoglobin did drop down to 8. She was symptomatic, weak and tired, hence she was given a unit of blood. Hemoglobin was 10.2 by the time of discharge. Dr. Dias covering for Dr. Schaffer did the colonoscopy. The patient was found to have a Schatzki ring and a fixed hiatal hernia. On exam, temperature 97.9, blood pressure 120/70. Abdomen soft, nontender. Hemoglobin 10.2. DISCHARGE MEDICATIONS: 1. Ventolin 1 to 2 puffs every 4 p.r.n. 2. Celexa 20 mg p.o. daily. 3. Pravachol 20 mg at bedtime. 4. Breo Ellipta 1 puff daily. 5. Singulair 10 mg at bedtime. 6. 20 mg p.o. b.i.d. FOLLOWUP: 1. The patient is to follow up with GI through his family doctor. 2. Follow up with Dr. Dias on 10/03/2018. 3. Dr. Cuellar on 09/17/2018. The patient to follow up with GI for further workup, maybe a small bowel capsule study as an outpatient. MMODL / IJN: [id number] /
[2018-09-18] MEDS ORDERED: PANTOPRAZOLE 40 MG TABLET PO SCH (09:00)
== END 2018-09-17 16:25 | disposition home or self-care (01) ==
LOC: EC 10:47 → 4MS4W 14:08
PROVIDERS: ADMIT Hospitalist; ATTEND Hospitalist
DX: K92.1 Melena (principal); K22.2 Esophageal obstruction; D62 Acute posthemorrhagic anemia; K21.9 Gastro-esophageal reflux disease without esophagitis; J45.909 Unspecified asthma, uncomplicated; E78.5 Hyperlipidemia, unspecified; K44.9 Diaphragmatic hernia without obstruction or gangrene; J45.40 Moderate persistent asthma, uncomplicated; Z87.01 Personal history of pneumonia (recurrent); Z87.11 Personal history of peptic ulcer disease; Z98.51 Tubal ligation status; Z79.51 Long term (current) use of inhaled steroids; Z79.899 Other long term (current) drug therapy; Z88.2 Allergy status to sulfonamides; Z80.0 Family history of malignant neoplasm of digestive organs; Z82.49 Family history of ischemic heart disease and other diseases of the circulatory system; Z83.3 Family history of diabetes mellitus
CPT/HCPCS: 96376; 96361; 96374; 99285; 36430; 36415; 93005; 86900; 86901; 80053 ×2; 84443; 82550; 82553; 83605; 83735; 84484; 85025 ×2; 85730; 86850; 86920; 82272; 43249; G0378 ×2; P9016; J2001; J2704; C9113 ×2; C1726 ×2

== ENCOUNTER → 2019-02-12 | Outpatient (CLI) | payer OTHER ==
--- NOTE | 2019-02-13 10:17 | MM ---
Reason for exam: screening (asymptomatic). Last mammogram was performed 3 years and 5 months ago. History: Patient is postmenopausal. Took hormonal contraceptives for 15 years. Took progesterone for 1 year 5 months beginning at age 49. Physical Findings: A clinical breast exam by your physician is recommended on an annual basis and results should be correlated with mammographic findings. MG 3D Screening Mammo W/Cad Bilateral CC and MLO view(s) were taken. Prior study comparison: September 27, 2015, bilateral MG 3d screening mammo w/cad. September 02, 2013, bilateral screening mammogram free. The breast tissue is heterogeneously dense. This may lower the sensitivity of mammography. Stable benign calcifications. There is no discrete abnormality. No significant changes when compared with prior studies. ASSESSMENT: Benign, BI-RAD 2 RECOMMENDATION: Routine screening mammogram of both breasts in 1 year.
== END | disposition home or self-care (01) ==
LOC: RADMAMWWP 11:43
PROVIDERS: ATTEND Obstetrics & Gynecology
DX: Z12.31 Encounter for screening mammogram for malignant neoplasm of breast (principal)
CPT/HCPCS: 77063; 77067

== ENCOUNTER 2021-04-21 15:01 | Observation (INO) | payer BC ==
--- NOTE | 2021-04-21 16:29 | ED ---
SOB HPI - General Chief Complaint: Shortness of Breath Stated Complaint: Cardiac Time Seen by Provider: 04/21/21 15:03 Source: patient, RN/MD, EMS, RN notes reviewed Mode of arrival: EMS Limitations: no limitations - History of Present Illness Initial Comments: This is a 61-year-old female who was transferred from [facility] with complaints of progressively worsening shortness of breath and exertional dyspnea. She currently still feels short of breath she had shortness breath for about a month got worse over last 2 weeks. She has had her "shot. She is negative. No fevers chills nausea vomiting sweats or other symptoms at this time MD Complaint: shortness of breath - Related Data Home Medications Medication Instructions Recorded Confirmed Citalopram Hydrobromide 20 mg PO HS 08/24/18 04/21/21 [Citalopram HBr] Montelukast [Singulair] 10 mg PO HS 09/16/18 04/21/21 ALPRAZolam [Xanax] 0.25 mg PO BID PRN 04/21/21 04/21/21 Albuterol Inhaler [Ventolin Hfa 2 puff INHALATION RT-Q4H PRN 04/21/21 04/21/21 Inhaler] Budesonide/Formoterol Fumarate 2 puff INHALATION RT-BID 04/21/21 04/21/21 [Symbicort 160-4.5 Mcg Inhaler] Esomeprazole Magnesium [NexIUM 40 mg PO DAILY 04/21/21 04/21/21 24Hr] Ferrous Sulfate [Feosol] 325 mg PO DAILY 04/21/21 04/21/21 Metoprolol Tartrate [Lopressor] 50 mg PO BID 04/21/21 04/21/21 Nystatin 100,000 Unit/ml Susp 4 ml PO QID PRN 04/21/21 04/21/21 [Mycostatin Oral Susp] Pravastatin Sodium 80 mg PO HS 04/21/21 04/21/21 Allergies Allergy/AdvReac Type Severity Reaction Status Date / Time sulfamethoxazole AdvReac Nausea & Verified 04/21/21 16:17 [From Bactrim] Vomiting trimethoprim [From Bactrim] AdvReac Nausea & Verified 04/21/21 16:17 Vomiting Review of Systems ROS Statement: Those systems with pertinent positive or pertinent negative responses have been documented in the HPI. ROS Other: All systems not noted in ROS Statement are negative. Past Medical History Past Medical History: Asthma, GERD/Reflux, Hyperlipidemia, Pneumonia Additional Past Medical History / Comment(s): anemia, sepsis History of Any Multi-Drug Resistant Organisms: None Reported Past Surgical History: Tonsillectomy, Tubal Ligation Past Anesthesia/Blood Transfusion Reactions: No Reported Reaction Past Psychological History: No Psychological Hx Reported Smoking Status: Never smoker Past Alcohol Use History: Occasional Past Drug Use History: None Reported - Past Family History Mother Family Medical History: Diabetes Mellitus, Myocardial Infarction ([place]) Father Additional Family Medical History / Comment(s): colon cancer General Exam - General Exam Comments Initial Comments: This is a well-developed well-nourished awake alert oriented 3 female Limitations: no limitations General appearance: alert, in no apparent distress Head exam: Present: atraumatic, normocephalic, normal inspection Eye exam: Present: normal appearance, PERRL, EOMI. Absent: scleral icterus, conjunctival injection, periorbital swelling ENT exam: Present: normal exam, mucous membranes moist Neck exam: Present: normal inspection. Absent: tenderness, meningismus, lymphadenopathy Respiratory exam: Present: normal lung sounds bilaterally. Absent: respiratory distress, wheezes, rales, rhonchi, stridor Cardiovascular Exam: Present: regular rate, normal rhythm, normal heart sounds. Absent: systolic murmur, diastolic murmur, rubs, gallop, clicks GI/Abdominal exam: Present: soft, normal bowel sounds. Absent: distended, tenderness, guarding, rebound, rigid Extremities exam: Present: normal inspection, full ROM, normal capillary refill. Absent: tenderness, pedal edema, joint swelling, calf tenderness Back exam: Present: normal inspection Neurological exam: Present: alert, oriented X3, CN II-XII intact Psychiatric exam: Present: normal affect, normal mood Skin exam: Present: warm, dry, intact, normal color. Absent: rash Course Vital Signs 04/21/21 15:05 Temperature 98.4 F Pulse Rate 87 Respiratory 18 Rate Blood Pressure 180/109 O2 Sat by Pulse 97 Oximetry Medical Decision Making - Medical Decision Making Materials from [facility] reviewed did discuss the case with Dr. Santoyo patient will be admitted for inpatient evaluation and treatment concern for a unstable angina variant Disposition Clinical Impression: Exertional dyspnea, Unstable angina Disposition: ADMITTED IP TO THIS HOSP Condition: Fair Referrals: Kermit Cuellar MD [Primary Care Provider] - 1-2 days
[2021-04-21] MEDS ORDERED: NITROGLYCERIN SL TABS 0.4 MG TAB SUBLINGUAL PRN (16:31)
[2021-04-21] MEDS ORDERED: ALBUTEROL NEBULIZED 2.5 MG/3 ML INHALATION PRN (16:32)
[2021-04-21] MEDS ORDERED: NYSTATIN 100,000 UNIT/ML SUSP 500,000 UNIT/5 ML CUP PO PRN (16:32)
[2021-04-21] MEDS: SODIUM CHLORIDE 0.9% 1,000 ML IV SCH (17:50)
[2021-04-21] MEDS: SYMBICORT 160-4.5 MCG INHALER INHALATION SCH (19:23)
[2021-04-21] MEDS: MONTELUKAST 10 MG TAB PO SCH (21:19)
[2021-04-21] MEDS: METOPROLOL TARTRATE 50 MG TAB PO SCH (21:19)
[2021-04-21] MEDS: PRAVASTATIN SODIUM 80 MG TAB PO SCH (21:19)
[2021-04-21] MEDS: CITALOPRAM HYDROBROMIDE 20 MG TAB PO SCH (21:19)
--- NOTE | 2021-04-21 22:43 | P.HPIM ---
History of Present Illness H&P Date: 04/21/21 Chief Complaint: Chest tightness History of presenting complaint: This is a very pleasant 61-year-old patient who follows with Dr. Cuellar. Chronic stable medical conditions include GERD, hyperlipidemia, recent aspiration pneumonia. Patient about a month ago had aspiration pneumonia felt to be from excessive reflux symptoms. She was treated with antibiotics. 2 weeks ago she saw Dr. Banks in the office was felt to have a flareup of ALLERGIES and was given steroids. Patient now presents with feeling heaviness of the chest is totally tired and rundown. Has episodes of perspiration. No fever or chills. No wheezing. Breathing treatments are not making any difference. No leg swelling. Initially was seen us [facility] and was transferred down here. Review of systems: GEN.: Tired EYES: None HEENT: None NECK: None RESPIRATORY: As above CARDIOVASCULAR: As above GASTROINTESTINAL: None GENITOURINARY: None MUSCULOSKELETAL: None LYMPHATICS: None HEMATOLOGICAL: None PSYCHIATRY: None NEUROLOGICAL: None Past medical history to include: Asthma, GERD, hyperlipidemia Social history: Does not smoke. Alcohol occasionally. . Family history: Includes coronary artery disease Physical examination: VITAL SIGNS: 98.3, 97, 18, 140/95, 96% room air GENERAL: BMI 28.7, reclining in bed, awake. EYES: Pupils equal. Conjunctiva normal. HEENT: External appearance of nose and ears normal, oral cavity grossly normal. NECK: JVD not raised; masses not palpable. HEART: First and second heart sounds are normal; no edema. LUNGS:[ Respiratory rate normal; diminished breath sounds. ABDOMEN: Soft, nontender, liver spleen not palpable, no masses palpable. PSYCH: Alert and oriented x3; mood and affect normal. NEUROLOGICAL: Cranial nerves grossly intact; no facial asymmetry, power and sensation grossly intact. LYMPHATICS: No lymph nodes palpable in the axilla and neck INVESTIGATIONS, reviewed in the clinical context: Troponin I 2 negative Coronavirus [PCR]-not detected Labs reviewed from [facility] Assessment and plan: -This is a patient who presents for 2 weeks of feeling weak diet and rundown. She is no energy. Some chest heaviness with exertion. Has a positive family history. Need to rule out a cardiac cause. Patient need a stress test. Aspirin. Cardiogenic consultation. Telemetry -Moderate persistent asthma, stable Continue with Symbicort and bronchodilator -Essential hypertension Continue with Lopressor -Hyperlipidemia Continue with pravastatin -Rule out hypothyroidism Patient is put on a few pounds in the last few months. Feels tired lethargic. Check TSH DVT prophylaxis Care was discussed with the patient. On aspirin. Beta nilay. Stress test in the morning with cardiology. Past Medical History Past Medical History: Asthma, GERD/Reflux, Hyperlipidemia, Pneumonia Additional Past Medical History / Comment(s): anemia, sepsis History of Any Multi-Drug Resistant Organisms: None Reported Past Surgical History: Tonsillectomy, Tubal Ligation Past Anesthesia/Blood Transfusion Reactions: No Reported Reaction Past Psychological History: No Psychological Hx Reported Smoking Status: Never smoker Past Alcohol Use History: Occasional Past Drug Use History: None Reported - Past Family History Mother Family Medical History: Diabetes Mellitus, Myocardial Infarction ([place]) Father Additional Family Medical History / Comment(s): colon cancer Medications and Allergies Home Medications Medication Instructions Recorded Confirmed Type Citalopram Hydrobromide 20 mg PO HS 08/24/18 04/21/21 History [Citalopram HBr] Montelukast [Singulair] 10 mg PO HS 09/16/18 04/21/21 History ALPRAZolam [Xanax] 0.25 mg PO BID PRN 04/21/21 04/21/21 History Albuterol Inhaler [Ventolin Hfa 2 puff INHALATION RT-Q4H PRN 04/21/21 04/21/21 History Inhaler] Budesonide/Formoterol Fumarate 2 puff INHALATION RT-BID 04/21/21 04/21/21 History [Symbicort 160-4.5 Mcg Inhaler] Esomeprazole Magnesium [NexIUM 40 mg PO DAILY 04/21/21 04/21/21 History 24Hr] Ferrous Sulfate [Feosol] 325 mg PO DAILY 04/21/21 04/21/21 History Metoprolol Tartrate [Lopressor] 50 mg PO BID 04/21/21 04/21/21 History Nystatin 100,000 Unit/ml Susp 4 ml PO QID PRN 04/21/21 04/21/21 History [Mycostatin Oral Susp] Pravastatin Sodium 80 mg PO HS 04/21/21 04/21/21 History Allergies Allergy/AdvReac Type Severity Reaction Status Date / Time sulfamethoxazole AdvReac Nausea & Verified 04/21/21 16:17 [From Bactrim] Vomiting trimethoprim [From Bactrim] AdvReac Nausea & Verified 04/21/21 16:17 Vomiting Physical Exam Vitals: Vital Signs Temp Pulse Pulse Resp BP BP Pulse Ox 04/21/21 21:45 98.2 F 88 17 133/81 95 04/21/21 20:12 98.3 F 97 18 140/95 96 04/21/21 17:00 92 18 138/93 99 04/21/21 15:05 98.4 F 87 18 180/109 97 Intake and Output 04/21/21 04/21/21 04/21/21 06:59 14:59 22:59 Other: Weight 66.678 kg
[2021-04-22] MEDS: SYMBICORT 160-4.5 MCG INHALER INHALATION SCH ×2 (08:35→21:00)
[2021-04-22] MEDS ORDERED: ASPIRIN 325 MG TAB PO SCH (09:00)
[2021-04-22] MEDS: ENOXAPARIN 40 MG/0.4 ML SYRINGE SQ SCH (09:13)
[2021-04-22] MEDS: FERROUS SULFATE 325 MG TAB PO SCH (09:13)
[2021-04-22] MEDS: PANTOPRAZOLE 40 MG TABLET PO SCH (09:13)
[2021-04-22] MEDS: METOPROLOL TARTRATE 50 MG TAB PO SCH ×2 (09:13→21:51)
[2021-04-22] MEDS ORDERED: AMINOPHYLLINE 500 MG/20 ML VIAL IV PRN (12:55)
[2021-04-22] MEDS ORDERED: CAFFEINE CITRATE 60 MG/3 ML VIAL IV PRN (12:55)
--- NOTE | 2021-04-22 12:58 | P.CRDCN ---
History of Present Illness History of present illness: HISTORY OF PRESENTING ILLNESS This is a pleasant 61-year-old female past medical history significant for asthma, dyslipidemia and family history of premature coronary artery disease with her mother. She denies prior history of coronary artery disease and does not follow in the office with a gate cutter. We have been asked to see in consultation for shortness of breath. He states for the previous one months she has been experiencing increased shortness of breath. This all started with what she thought was an asthma flareup. She went to her primary care physician and was diagnosed with aspiration pneumonia and started on levofloxacin. She states she took this medication for a week and has had no improvement in her symptoms. She continues to feel short of breath with exertion. She is unable to perform her typical activities of daily living without having to stop to catch her breath. She denies any associated chest pain, dizziness or palpitations. Her PCP set her up to see a gate cutter at the end of the month however she was concerned her symptoms were getting progressively worse she presented to the hospital. Her EKG revealed sinus rhythm with no acute ST or T wave abnormalities noted. Chest x-ray performed at an outside hospital revealed the medial right basilar opacity with underlying hyperinflation as well as an epicardial fat pad. Laboratory data reviewed, cardiac enzymes negative 2, NT proBNP 69, sodium 138, potassium 4.3, creatinine 0.6, WBC 12 and hemoglobin 15.4. Current daily cardiac medications include Lopressor 50 mg twice a day and pravastatin 80 mg at bedtime. She is seen and examined resting comfortably laying flat in bed in no acute distress. At rest she denies symptoms of shortness of breath. REVIEW OF SYSTEMS At the time of my exam: CONSTITUTIONAL: Denies fever or chills. CARDIOVASCULAR: Denies chest pain, shortness of breath, orthopnea, PND or palpitations. RESPIRATORY: Denies cough. GASTROINTESTINAL: Denies abdominal pain, diarrhea, constipation, nausea or vomiting. MUSCULOSKELETAL: Denies myalgias. NEUROLOGIC: Denies numbness, tingling, headacbe or weakness. ENDOCRINE: Denies fatigue, weight change, polydipsia or polyurina. GENITOURINARY: Denies burning, hematuria or urgency with micturation. HEMATOLOGIC: Denies history of anemia or bleeding. PHYSICAL EXAMINATION Blood pressure 151/82 heart rate 76 afebrile and maintaining oxygen saturation on room air. CONSTITUTIONAL: No apparent distress. HEENT: Head is normocephalic. Pupils are equal, round. Sclerae anicteric. Mucous membranes of the mouth are moist. No JVD. No carotid bruit. CHEST EXAMINATION: Lungs are clear to auscultation. No chest wall tenderness is noted on palpation or with deep breathing. HEART EXAMINATION: Regular rate and rhythm. S1, S2 heard. No murmurs, gallops or rub. ABDOMEN: Soft, nontender. Positive bowel sounds. EXTREMITIES: 2+ peripheral pulses, no lower extremity edema and no calf tenderness. NEUROLOGIC EXAMINATION: Patient is awake, alert and oriented x3. ASSESSMENT Exertional shortness of breath Dyslipidemia Family history of premature coronary artery disease PLAN An acute coronary event has been ruled out. Clinically the patient is euvolemic with no evidence to suggest acute heart failure. Obtain 2D echocardiogram and doppler study to assess cardiac structure and function. After evaluation by echo we will likely proceed with Lexiscan stress test to assess for reversible cardiac ischemia. This will take place on Sunday. Further recommendations to follow based on clinical course. Thank you kindly for this consultation. Nurse Practitioner note has been reviewed, I agree with a documented findings and plan of care. Patient was seen and examined. Past Medical History Past Medical History: Asthma, GERD/Reflux, Hyperlipidemia, Pneumonia Additional Past Medical History / Comment(s): anemia, sepsis History of Any Multi-Drug Resistant Organisms: None Reported Past Surgical History: Tonsillectomy, Tubal Ligation Past Anesthesia/Blood Transfusion Reactions: No Reported Reaction Past Psychological History: No Psychological Hx Reported Smoking Status: Never smoker Past Alcohol Use History: Occasional Past Drug Use History: None Reported - Past Family History Mother Family Medical History: Diabetes Mellitus, Myocardial Infarction ([place]) Father Additional Family Medical History / Comment(s): colon cancer Medications and Allergies Home Medications Medication Instructions Recorded Confirmed Type Citalopram Hydrobromide 20 mg PO HS 08/24/18 04/21/21 History [Citalopram HBr] Montelukast [Singulair] 10 mg PO HS 09/16/18 04/21/21 History ALPRAZolam [Xanax] 0.25 mg PO BID PRN 04/21/21 04/21/21 History Albuterol Inhaler [Ventolin Hfa 2 puff INHALATION RT-Q4H PRN 04/21/21 04/21/21 History Inhaler] Budesonide/Formoterol Fumarate 2 puff INHALATION RT-BID 04/21/21 04/21/21 History [Symbicort 160-4.5 Mcg Inhaler] Esomeprazole Magnesium [NexIUM 40 mg PO DAILY 04/21/21 04/21/21 History 24Hr] Ferrous Sulfate [Feosol] 325 mg PO DAILY 04/21/21 04/21/21 History Metoprolol Tartrate [Lopressor] 50 mg PO BID 04/21/21 04/21/21 History Nystatin 100,000 Unit/ml Susp 4 ml PO QID PRN 04/21/21 04/21/21 History [Mycostatin Oral Susp] Pravastatin Sodium 80 mg PO HS 04/21/21 04/21/21 History Allergies Allergy/AdvReac Type Severity Reaction Status Date / Time sulfamethoxazole AdvReac Nausea & Verified 04/21/21 16:17 [From Bactrim] Vomiting trimethoprim [From Bactrim] AdvReac Nausea & Verified 04/21/21 16:17 Vomiting Physical Exam Vitals: Vital Signs Temp Pulse Pulse Resp BP BP Pulse Ox 04/22/21 07:00 98.0 F 76 16 151/82 98 04/22/21 01:50 97.9 F 85 17 123/80 95 04/21/21 21:45 98.2 F 88 17 133/81 95 04/21/21 20:12 98.3 F 97 18 140/95 96 04/21/21 17:00 92 18 138/93 99 04/21/21 15:05 98.4 F 87 18 180/109 97 Intake and Output 04/21/21 04/22/21 04/22/21 22:59 06:59 14:59 Other: Voiding Method Toilet # Voids 1 Weight 66.678 kg Results Cardiac Enzymes 04/21/21 04/21/21 Range/Units 17:09 20:56 Troponin I <0.012 <0.012 (0.000-0.034) ng/mL Current Medications Generic Name Dose Route Start Last Admin Trade Name Freq PRN Reason Stop Dose Admin Albuterol Sulfate 2.5 mg 04/21/21 16:32 Albuterol Nebulized 2.5 Mg/3 Ml INHALATION RT-Q4H PRN Shortness Of Breath Alprazolam 0.25 mg 04/21/21 16:32 Alprazolam 0.25 Mg Tab PO BID PRN Anxiety Aspirin 325 mg 04/22/21 09:00 04/22/21 09:13 Aspirin 325 Mg Tab PO 325 mg DAILY LISA Administration Budesonide/Formoterol Fumarate 2 puff 04/21/21 20:00 04/22/21 08:35 Symbicort 160-4.5 Mcg Inhaler INHALATION 2 puff RT-BID LISA Administration Citalopram Hydrobromide 20 mg 04/21/21 21:00 04/21/21 21:19 Citalopram Hydrobromide 20 Mg Tab PO 20 mg HS LISA Administration Enoxaparin Sodium 40 mg 04/22/21 09:00 04/22/21 09:13 Enoxaparin 40 Mg/0.4 Ml Syringe SQ 40 mg DAILY LISA Administration Ferrous Sulfate 325 mg 04/22/21 09:00 04/22/21 09:13 Ferrous Sulfate 325 Mg Tab PO 325 mg DAILY LISA Administration Sodium Chloride 1,000 mls @ 20 mls/hr 04/21/21 16:45 04/21/21 17:50 Saline 0.9% IV Not Given .Q24H LISA Metoprolol Tartrate 50 mg 04/21/21 21:00 04/22/21 09:13 Metoprolol Tartrate 50 Mg Tab PO 50 mg BID LISA Administration Montelukast Sodium 10 mg 04/21/21 21:00 04/21/21 21:19 Montelukast 10 Mg Tab PO 10 mg HS LISA Administration Nitroglycerin 0.4 mg 04/21/21 16:31 Nitroglycerin Sl Tabs 0.4 Mg Tab SUBLINGUAL Q5M PRN Chest Pain Nystatin 400,000 unit 04/21/21 16:32 Nystatin 100,000 Unit/Ml Susp 500,000 Unit/5 Ml Cup PO QID PRN SORE THROAT/MOUTH Pantoprazole Sodium 40 mg 04/22/21 09:00 04/22/21 09:13 Pantoprazole 40 Mg Tablet PO 40 mg DAILY LISA Administration Pravastatin Sodium 80 mg 04/21/21 21:00 04/21/21 21:19 Pravastatin Sodium 80 Mg Tab PO 80 mg HS LISA Administration Intake and Output 04/21/21 04/22/21 04/22/21 22:59 06:59 14:59 Other: Voiding Method Toilet # Voids 1 Weight 66.678 kg
[2021-04-22 13:26] LABS: Chol/HDL Ratio 4.33
--- NOTE | 2021-04-22 16:20 | P.PN ---
Progress Note - Text Progress Note Date: 04/22/21 Chief Complaint: Chest tightness History of presenting complaint: This is a very pleasant 61-year-old patient who follows with Dr. Cuellar. Chronic stable medical conditions include GERD, hyperlipidemia, recent aspiration pneumonia. Patient about a month ago had aspiration pneumonia felt to be from excessive reflux symptoms. She was treated with antibiotics. 2 weeks ago she saw Dr. Joel in the office was felt to have a flareup of ALLERGIES and was given steroids. Patient now presents with feeling heaviness of the chest is totally tired and rundown. Has episodes of perspiration. No fever or chills. No wheezing. Breathing treatments are not making any difference. No leg swelling. Initially was seen us [facility] and was transferred down here. Admitted with unstable angina Today: Laying in bed. No chest pain. Cardiology workup in place. Review of systems: Was done for constitutional, cardiovascular, GI, pulmonary. relevant finding as above Active Medications Albuterol Sulfate (Albuterol Nebulized 2.5 Mg/3 Ml) 2.5 mg INHALATION RT-Q4H PRN PRN Reason: Shortness Of Breath Alprazolam (Alprazolam 0.25 Mg Tab) 0.25 mg PO BID PRN PRN Reason: Anxiety Aminophylline (Aminophylline 500 Mg/20 Ml Vial) 100 mg IV ONCE PRN PRN Reason: Patient Response Stop: 04/22/21 16:55 Aspirin (Aspirin 81 Mg) 81 mg PO DAILY [facility] Budesonide/Formoterol Fumarate (Symbicort 160-4.5 Mcg Inhaler) 2 puff INHALATION RT-BID [facility] Last Admin: 04/22/21 08:35 Dose: 2 puff Documented by: Caffeine Citrate (Caffeine Citrate 60 Mg/3 Ml Vial) 60 mg IV ONCE PRN PRN Reason: Patient Response Stop: 04/22/21 16:55 Citalopram Hydrobromide (Citalopram Hydrobromide 20 Mg Tab) 20 mg PO HS [facility] Last Admin: 04/21/21 21:19 Dose: 20 mg Documented by: Enoxaparin Sodium (Enoxaparin 40 Mg/0.4 Ml Syringe) 40 mg SQ DAILY [facility] Last Admin: 04/22/21 09:13 Dose: 40 mg Documented by: Ferrous Sulfate (Ferrous Sulfate 325 Mg Tab) 325 mg PO DAILY [facility] Last Admin: 04/22/21 09:13 Dose: 325 mg Documented by: Sodium Chloride (Saline 0.9%) 1,000 mls @ 20 mls/hr IV .Q24H [facility] Last Admin: 04/21/21 17:50 Dose: Not Given Documented by: Metoprolol Tartrate (Metoprolol Tartrate 50 Mg Tab) 50 mg PO BID [facility] Last Admin: 04/22/21 09:13 Dose: 50 mg Documented by: Montelukast Sodium (Montelukast 10 Mg Tab) 10 mg PO HS [facility] Last Admin: 04/21/21 21:19 Dose: 10 mg Documented by: Nitroglycerin (Nitroglycerin Sl Tabs 0.4 Mg Tab) 0.4 mg SUBLINGUAL Q5M PRN PRN Reason: Chest Pain Nystatin (Nystatin 100,000 Unit/Ml Susp 500,000 Unit/5 Ml Cup) 400,000 unit PO QID PRN PRN Reason: SORE THROAT/MOUTH Pantoprazole Sodium (Pantoprazole 40 Mg Tablet) 40 mg PO DAILY [facility] Last Admin: 04/22/21 09:13 Dose: 40 mg Documented by: Pravastatin Sodium (Pravastatin Sodium 80 Mg Tab) 80 mg PO HS [facility] Last Admin: 04/21/21 21:19 Dose: 80 mg Documented by: Regadenoson (Regadenoson 0.4 Mg/5 Ml Syringe) 0.4 mg IV ONCE PRN PRN Reason: Per Protocol Stop: 04/22/21 16:55 Past medical history to include: Asthma, GERD, hyperlipidemia Social history: Does not smoke. Alcohol occasionally. . Family history: Includes coronary artery disease Physical examination: VITAL SIGNS: 98, 76, 16, 11 9 x 77, 96% room air GENERAL: BMI 28.7, reclining in bed, awake. EYES: Pupils equal. Conjunctiva normal. HEENT: External appearance of nose and ears normal, oral cavity grossly normal. NECK: JVD not raised; masses not palpable. HEART: First and second heart sounds are normal; no edema. LUNGS:[ Respiratory rate normal; diminished breath sounds. ABDOMEN: Soft, nontender, liver spleen not palpable, no masses palpable. PSYCH: Alert and oriented x3; mood and affect normal. INVESTIGATIONS, reviewed in the clinical context: LDL 171 TSH 0.5 Troponin I 2 negative Coronavirus [PCR]-not detected Labs reviewed from [facility] Assessment and plan: -Unstable angina: presents for 2 weeks of feeling weak and tired and rundown. She is no energy. Some chest heaviness with exertion. Has a positive family history. On aspirin and Lopressor. Stress test being ordered by cardiology, no slots are open hence will be done on Sunday. Patient unhappy about the same. -Moderate persistent asthma, stable Continue with Symbicort and bronchodilator -Essential hypertension Continue with Lopressor -Hyperlipidemia Continue with pravastatin Care was discussed with the patient and at the bedside. On aspirin. Beta nilay. Stress test on Sunday as per cardiology.
[2021-04-22] MEDS: SODIUM CHLORIDE 0.9% 1,000 ML IV SCH (17:00)
--- NOTE | 2021-04-22 19:00 | ECHOF ---
Referral Reason:exertional sob MEASUREMENTS -------- HEIGHT: 152.4 cm WEIGHT: 66.7 kg BP: 151/82 IVSd: 1.6 cm (0.6 - 1.1) LVIDd: 3.5 cm (3.9 - 5.3) LVPWd: 1.4 cm (0.6 - 1.1) IVSs: 1.7 cm LVIDs: 1.9 cm LVPWs: 1.5 cm LAESV Index (A-L): 29.60 ml/m Ao Diam: 2.4 cm (2.0 - 3.7) AV Cusp: 1.7 cm (1.5 - 2.6) LA Diam: 3.7 cm (2.7 - 3.8) MV EXCURSION: 10.955 mm (> 18.000) MV EF SLOPE: 72 mm/s (70 - 150) EPSS: 0.2 cm MV E Nnamdi: 0.98 m/s MV DecT: 209 ms MV A Nnamdi: 1.15 m/s MV E/A Ratio: 0.85 RAP: 5.00 mmHg RVSP: 31.18 mmHg FINDINGS -------- Sinus rhythm. This was a technically adequate study. The left ventricular size is normal. There is moderate concentric left ventricular hypertrophy. O verall left ventricular systolic function is normal with, an EF between 55 - 60 %. The diastolic fi lling pattern is normal for the age of the patient {E/E'}. The right ventricle is normal in size. LA is midly dilated 29-33ml/m2. The right atrial size is normal. Interatrial and interventricular septum intact. The aortic valve is trileaflet, and appears structurally normal. No aortic stenosis or regurgitation. Mild mitral annular calcification present. Mild mitral regurgitation is present. Mild tricuspid regurgitation present. Right ventricular systolic pressure is normal at < 35 mmHg. There is no evidence of pulmonary hypertension. The pulmonic valve was not well visualized. There is no pulmonic regurgitation present. The aortic root size is normal. IVC Not well visulized. There is no pericardial effusion. CONCLUSIONS -------- 1. There is moderate concentric left ventricular hypertrophy. 2. Overall left ventricular systolic function is normal with, an EF between 55 - 60 %. 3. LA is midly dilated 29-33ml/m2. 4. The aortic valve is trileaflet, and appears structurally normal. No aortic stenosis or regurgitati on. 5. Mild mitral annular calcification present. 6. Mild mitral regurgitation is present. 7. Mild tricuspid regurgitation present. 8. There is no pericardial effusion. IDENTIFICATION AND RECORDS COMMANDER: Jenny Perez RDCS
[2021-04-22] MEDS: MONTELUKAST 10 MG TAB PO SCH (21:51)
[2021-04-22] MEDS: PRAVASTATIN SODIUM 80 MG TAB PO SCH (21:51)
[2021-04-22] MEDS: CITALOPRAM HYDROBROMIDE 20 MG TAB PO SCH (21:51)
[2021-04-22] MEDS: ALPRAZolam 0.25 MG TAB PO PRN (21:56)
[2021-04-23] MEDS: SYMBICORT 160-4.5 MCG INHALER INHALATION SCH ×2 (07:53→19:48)
[2021-04-23] MEDS: ASPIRIN 81 MG PO SCH (07:59)
[2021-04-23] MEDS: FERROUS SULFATE 325 MG TAB PO SCH (07:59)
[2021-04-23] MEDS: METOPROLOL TARTRATE 50 MG TAB PO SCH ×2 (07:59→21:15)
[2021-04-23] MEDS: PANTOPRAZOLE 40 MG TABLET PO SCH (07:59)
[2021-04-23] MEDS: ENOXAPARIN 40 MG/0.4 ML SYRINGE SQ SCH (07:59)
[2021-04-23] MEDS: SODIUM CHLORIDE 0.9% 1,000 ML IV SCH (15:32)
--- NOTE | 2021-04-23 15:38 | P.PN ---
Subjective Progress Note Date: 04/23/21 Physical pleasant 61-year-old female with a past medical history significant for asthma, family history of premature CAD and dyslipidemia. She has been experiencing worsening shortness of breath over the last month. Initially she thought this was related to the weather and her asthma. She went to see her primary care physician and was treated for pneumonia without any relief of her symptoms. She presented to [facility] for further evaluation and was subsequently sent here. EKG revealed sinus mechanism with no acute ST-T wave abnormalities. Chest x-ray showed medial right basilar obesity with underlying hyperinflation as well as an epicardial fat pad. Laboratory values showed troponins are negative and NT proBNP of 69. She is currently on Lopressor 50 mg twice a day and pravastatin 80 mg at bedtime. Echocardiogram with Doppler study showed normal LV systolic function with ejection fraction of 55-60% with mild MR and mild TR. Lipids were drawn this morning and showed total cholesterol of 251, LDL 171, triglycerides 110 and HDL of 58. TSH was normal at 0.530. On examination she is resting comfortably in a chair. She continues to complain of dyspnea on exertion and overall her breathing not feeling right. She's had no chest discomfort, no palpitations, no dizziness or lightheadedness. She has no PND or orthopnea and no edema. Objective - Vital Signs Vital signs: Vital Signs Temp 98.5 F 04/23/21 07:00 Pulse 87 04/23/21 07:00 Resp 14 04/23/21 07:00 BP 145/66 04/23/21 07:00 Pulse Ox 97 04/23/21 07:00 Intake & Output 04/22/21 04/23/21 04/23/21 18:59 06:59 18:59 Intake Total 350 Balance 350 Intake: Oral 350 Other: Voiding Method Toilet # Voids 1 2 - Exam PHYSICAL EXAMINATION: HEENT: Head is atraumatic, normocephalic. Pupils equal, round. Neck is supple. There is no elevated jugular venous pressure. HEART EXAMINATION: Heart sounds regular, S1 and S2 normal. No murmur or gallop heard. CHEST EXAMINATION: Lungs are clear to auscultation. No chest wall tenderness is noted on palpation or with deep breathing. ABDOMEN: Soft, nontender. Bowel sounds are heard. No organomegaly noted. EXTREMITIES: 2+ peripheral pulses with no evidence of peripheral edema and no calf tenderness noted. NEUROLOGIC patient is awake, alert and oriented x3. . - Labs Labs: Abnormal Lab Results - Last 24 Hours (Table) 04/22/21 Range/Units 05:13 Cholesterol 251 H (0-200) mg/dL LDL Cholesterol, Calc 171.0 H (0.0-131.0) mg/dL Assessment and Plan Assessment: #1 dyspnea on exertion #2 dyslipidemia, LDL 171 on current treatment #3 family history of premature CAD in her mother Plan: From cardiology's perspective we will stop pravastatin and start the patient on atorvastatin. We'll plan for Lexiscan Cardiolite stress test on Sunday. We will continue to follow the patient and provide further recommendations based on clinical course. VOLUNTEER SERVICES DIRECTOR note has been reviewed, I agree with a documented findings and plan of care. Patient was seen and examined.
--- NOTE | 2021-04-23 17:08 | P.PN ---
Progress Note - Text Progress Note Date: 04/23/21 Chief Complaint: Chest tightness History of presenting complaint: This is a very pleasant 61-year-old patient who follows with Dr. Cuellar. Chronic stable medical conditions include GERD, hyperlipidemia, recent aspiration pneumonia. Patient about a month ago had aspiration pneumonia felt to be from excessive reflux symptoms. She was treated with antibiotics. 2 weeks ago she saw Dr. Joel in the office was felt to have a flareup of ALLERGIES and was given steroids. Patient now presents with feeling heaviness of the chest is totally tired and rundown. Has episodes of perspiration. No fever or chills. No wheezing. Breathing treatments are not making any difference. No leg swelling. Initially was seen us [facility] and was transferred down here. Admitted with unstable angina. Nuclear stress test could not be scheduled on Sunday. Today: No chest pain. Up to the bathroom. Awaiting stress test on Sunday. Review of systems: Was done for constitutional, cardiovascular, GI, pulmonary. relevant finding as above Active Medications Albuterol Sulfate (Albuterol Nebulized 2.5 Mg/3 Ml) 2.5 mg INHALATION RT-Q4H PRN PRN Reason: Shortness Of Breath Alprazolam (Alprazolam 0.25 Mg Tab) 0.25 mg PO BID PRN PRN Reason: Anxiety Last Admin: 04/22/21 21:56 Dose: 0.25 mg Documented by: Aspirin (Aspirin 81 Mg) 81 mg PO DAILY [facility] Last Admin: 04/23/21 07:59 Dose: 81 mg Documented by: Atorvastatin Calcium (Atorvastatin 80 Mg Tab) 80 mg PO [facility] Budesonide/Formoterol Fumarate (Symbicort 160-4.5 Mcg Inhaler) 2 puff INHALATION RT-BID [facility] Last Admin: 04/23/21 07:53 Dose: 2 puff Documented by: Citalopram Hydrobromide (Citalopram Hydrobromide 20 Mg Tab) 20 mg PO [facility] Last Admin: 04/22/21 21:51 Dose: 20 mg Documented by: Enoxaparin Sodium (Enoxaparin 40 Mg/0.4 Ml Syringe) 40 mg SQ DAILY [facility] Last Admin: 04/23/21 07:59 Dose: 40 mg Documented by: Ferrous Sulfate (Ferrous Sulfate 325 Mg Tab) 325 mg PO DAILY [facility] Last Admin: 04/23/21 07:59 Dose: 325 mg Documented by: Sodium Chloride (Saline 0.9%) 1,000 mls @ 20 mls/hr IV .Q24H [facility] Last Admin: 04/23/21 15:32 Dose: Not Given Documented by: Metoprolol Tartrate (Metoprolol Tartrate 50 Mg Tab) 50 mg PO BID [facility] Last Admin: 04/23/21 07:59 Dose: 50 mg Documented by: Montelukast Sodium (Montelukast 10 Mg Tab) 10 mg PO HS [facility] Last Admin: 04/22/21 21:51 Dose: 10 mg Documented by: Nitroglycerin (Nitroglycerin Sl Tabs 0.4 Mg Tab) 0.4 mg SUBLINGUAL Q5M PRN PRN Reason: Chest Pain Nystatin (Nystatin 100,000 Unit/Ml Susp 500,000 Unit/5 Ml Cup) 400,000 unit PO QID PRN PRN Reason: SORE THROAT/MOUTH Pantoprazole Sodium (Pantoprazole 40 Mg Tablet) 40 mg PO DAILY [facility] Last Admin: 04/23/21 07:59 Dose: 40 mg Documented by: Regadenoson (Regadenoson 0.4 Mg/5 Ml Syringe) 0.4 mg IV ONCE PRN PRN Reason: Per Protocol Stop: 04/25/21 23:00 Past medical history to include: Asthma, GERD, hyperlipidemia Social history: Does not smoke. Alcohol occasionally. . Family history: Includes coronary artery disease Physical examination: VITAL SIGNS: 97.4, 83, 14, 130/68, 98% room air GENERAL: Sitting up, comfortable EYES: Pupils equal. Conjunctiva normal. HEENT: External appearance of nose and ears normal, oral cavity grossly normal. NECK: JVD not raised; masses not palpable. HEART: First and second heart sounds are normal; no edema. LUNGS:[ Respiratory rate normal; diminished breath sounds. ABDOMEN: Soft, nontender, liver spleen not palpable, no masses palpable. PSYCH: Alert and oriented x3; mood and affect normal. INVESTIGATIONS, reviewed in the clinical context: LDL 171 TSH 0.5 Troponin I 2 negative Coronavirus [PCR]-not detected Labs reviewed from [facility] Assessment and plan: -Unstable angina: presents for 2 weeks of feeling weak and tired and rundown. She is no energy. Some chest heaviness with exertion. Has a positive family history. On aspirin and Lopressor. Stress test-scheduled for Sunday. -Moderate persistent asthma, stable Continue with Symbicort and bronchodilator -Essential hypertension Continue with Lopressor -Hyperlipidemia-uncontrolled pravastatin Discussed with patient. Continue current medications.
[2021-04-23] MEDS: MONTELUKAST 10 MG TAB PO SCH (21:15)
[2021-04-23] MEDS: CITALOPRAM HYDROBROMIDE 20 MG TAB PO SCH (21:15)
[2021-04-23] MEDS: ALPRAZolam 0.25 MG TAB PO PRN (21:15)
[2021-04-23] MEDS: ATORVASTATIN 80 MG TAB PO SCH (21:15)
[2021-04-24] MEDS: SYMBICORT 160-4.5 MCG INHALER INHALATION SCH ×2 (08:06→21:38)
[2021-04-24] MEDS: ENOXAPARIN 40 MG/0.4 ML SYRINGE SQ SCH (08:07)
[2021-04-24] MEDS: PANTOPRAZOLE 40 MG TABLET PO SCH (08:07)
[2021-04-24] MEDS: FERROUS SULFATE 325 MG TAB PO SCH (08:07)
[2021-04-24] MEDS: ASPIRIN 81 MG PO SCH (08:07)
[2021-04-24] MEDS: METOPROLOL TARTRATE 50 MG TAB PO SCH ×2 (08:07→19:26)
[2021-04-24 08:42] VITALS: RESP 16
--- NOTE | 2021-04-24 10:59 | P.PN ---
Subjective Progress Note Date: 04/24/21 This is a pleasant 61-year-old female with a past medical history significant for asthma, family history of premature CAD and dyslipidemia. She has been experiencing worsening shortness of breath over the last month. Initially she thought this was related to the weather and her asthma. She went to see her primary care physician and was treated for pneumonia without any relief of her symptoms. She presented to [facility] for further evaluation and was subsequently sent here. EKG revealed sinus mechanism with no acute ST-T wave abnormalities. Chest x-ray showed medial right basilar obesity with underlying hyperinflation as well as an epicardial fat pad. Laboratory values showed troponins are negative and NT proBNP of 69. She is currently on Lopressor 50 mg twice a day and pravastatin 80 mg at bedtime. Echocardiogram with Doppler study showed normal LV systolic function with ejection fraction of 55-60% with mild MR and mild TR. Lipids were drawn this morning and showed total cholesterol of 251, LDL 171, triglycerides 110 and HDL of 58. TSH was normal at 0.530. On examination she is resting comfortably in a chair. She continues to complain of dyspnea on exertion and overall her breathing not feeling right. She's had no chest discomfort, no palpitations, no dizziness or lightheadedness. She has no PND or orthopnea and no edema. 04/24/21 Patient was seen and examined this morning sitting up in bed. She overall feels her breathing may be a bit better. She's been up to the bathroom without much difficulty. She's had no complaints of chest discomfort. Blood pressure was elevated through the night but is better this morning at 116/80 with a heart rate in the 80s. She's been afebrile. Objective - Vital Signs Vital signs: Vital Signs Temp 98.4 F 04/24/21 07:00 Pulse 82 04/24/21 07:00 Resp 16 04/24/21 07:00 BP 116/80 04/24/21 07:00 Pulse Ox 96 04/24/21 07:00 Intake & Output 04/23/21 04/24/21 04/24/21 18:59 06:59 18:59 Intake Total 350 300 Output Total 1 Balance 350 299 Intake: Oral 350 300 Output: Stool 1 Other: Voiding Method Toilet # Voids 2 2 - Exam PHYSICAL EXAMINATION: HEENT: Head is atraumatic, normocephalic. Pupils equal, round. Neck is supple. There is no elevated jugular venous pressure. HEART EXAMINATION: Heart sounds regular, S1 and S2 normal. No murmur or gallop heard. CHEST EXAMINATION: Lungs are clear to auscultation. No chest wall tenderness is noted on palpation or with deep breathing. ABDOMEN: Soft, nontender. Bowel sounds are heard. No organomegaly noted. EXTREMITIES: 2+ peripheral pulses with no evidence of peripheral edema and no calf tenderness noted. NEUROLOGIC patient is awake, alert and oriented x3. . Assessment and Plan Assessment: #1 dyspnea on exertion, could be anginal equivalent #2 dyslipidemia, LDL 171 on pravastatin, has been switched to atorvastatin #3 family history of premature CAD in her mother Plan: From cardiology's perspective medications were reviewed and we will continue the same. We'll plan for Lexiscan Cardiolite stress test tomorrow. Further recommendations to follow. PRODUCTION MATERIAL HANDLER note has been reviewed, I agree with a documented findings and plan of care. Patient was seen and examined.
--- NOTE | 2021-04-24 14:30 | P.PN ---
Progress Note - Text Progress Note Date: 04/24/21 Chief Complaint: Chest tightness History of presenting complaint: This is a very pleasant 61-year-old patient who follows with Dr. Cuellar. Chronic stable medical conditions include GERD, hyperlipidemia, recent aspiration pneumonia. Patient about a month ago had aspiration pneumonia felt to be from excessive reflux symptoms. She was treated with antibiotics. 2 weeks ago she saw Dr. Joel in the office was felt to have a flareup of ALLERGIES and was given steroids. Patient now presents with feeling heaviness of the chest is totally tired and rundown. Has episodes of perspiration. No fever or chills. No wheezing. Breathing treatments are not making any difference. No leg swelling. Initially was seen us [facility] and was transferred down here. Admitted with unstable angina. Nuclear stress test could not be scheduled on Sunday. Today: Sitting up. Comfortable. No chest pain. at the bedside. awaiting stress test Review of systems: Was done for constitutional, cardiovascular, GI, pulmonary. relevant finding as above Active Medications Albuterol Sulfate (Albuterol Nebulized 2.5 Mg/3 Ml) 2.5 mg INHALATION RT-Q4H PRN PRN Reason: Shortness Of Breath Alprazolam (Alprazolam 0.25 Mg Tab) 0.25 mg PO BID PRN PRN Reason: Anxiety Last Admin: 04/23/21 21:15 Dose: 0.25 mg Documented by: Aspirin (Aspirin 81 Mg) 81 mg PO DAILY [facility] Last Admin: 04/24/21 08:07 Dose: 81 mg Documented by: Atorvastatin Calcium (Atorvastatin 80 Mg Tab) 80 mg PO [facility] Last Admin: 04/23/21 21:15 Dose: 80 mg Documented by: Budesonide/Formoterol Fumarate (Symbicort 160-4.5 Mcg Inhaler) 2 puff INHALATION RT-BID [facility] Last Admin: 04/24/21 08:06 Dose: 2 puff Documented by: Citalopram Hydrobromide (Citalopram Hydrobromide 20 Mg Tab) 20 mg PO [facility] Last Admin: 04/23/21 21:15 Dose: 20 mg Documented by: Enoxaparin Sodium (Enoxaparin 40 Mg/0.4 Ml Syringe) 40 mg SQ DAILY [facility] Last Admin: 04/24/21 08:07 Dose: 40 mg Documented by: Ferrous Sulfate (Ferrous Sulfate 325 Mg Tab) 325 mg PO DAILY [facility] Last Admin: 04/24/21 08:07 Dose: 325 mg Documented by: Sodium Chloride (Saline 0.9%) 1,000 mls @ 20 mls/hr IV .Q24H [facility] Last Admin: 04/23/21 15:32 Dose: Not Given Documented by: Metoprolol Tartrate (Metoprolol Tartrate 50 Mg Tab) 50 mg PO BID [facility] Last Admin: 04/24/21 08:07 Dose: 50 mg Documented by: Montelukast Sodium (Montelukast 10 Mg Tab) 10 mg PO HS [facility] Last Admin: 04/23/21 21:15 Dose: 10 mg Documented by: Nitroglycerin (Nitroglycerin Sl Tabs 0.4 Mg Tab) 0.4 mg SUBLINGUAL Q5M PRN PRN Reason: Chest Pain Nystatin (Nystatin 100,000 Unit/Ml Susp 500,000 Unit/5 Ml Cup) 400,000 unit PO QID PRN PRN Reason: SORE THROAT/MOUTH Pantoprazole Sodium (Pantoprazole 40 Mg Tablet) 40 mg PO DAILY [facility] Last Admin: 04/24/21 08:07 Dose: 40 mg Documented by: Regadenoson (Regadenoson 0.4 Mg/5 Ml Syringe) 0.4 mg IV ONCE PRN PRN Reason: Per Protocol Stop: 04/25/21 23:00 Past medical history to include: Asthma, GERD, hyperlipidemia Social history: Does not smoke. Alcohol occasionally. . Family history: Includes coronary artery disease Physical examination: VITAL SIGNS: 98.4, 82, 16, 116/80, 96% room air GENERAL: Sitting up, comfortable EYES: Pupils equal. Conjunctiva normal. HEENT: External appearance of nose and ears normal, oral cavity grossly normal. NECK: JVD not raised; masses not palpable. HEART: First and second heart sounds are normal; no edema. LUNGS:[ Respiratory rate normal; diminished breath sounds. ABDOMEN: Soft, nontender, liver spleen not palpable, no masses palpable. PSYCH: Alert and oriented x3; mood and affect normal. INVESTIGATIONS, reviewed in the clinical context: LDL 171 TSH 0.5 Troponin I 2 negative Coronavirus [PCR]-not detected Labs reviewed from [facility] Assessment and plan: -Unstable angina: presents for 2 weeks of feeling weak and tired and rundown. She is no energy. Some chest heaviness with exertion. Has a positive family history. On aspirin and Lopressor. Stress test-scheduled for Sunday. -Moderate persistent asthma, stable Continue with Symbicort and bronchodilator -Essential hypertension Continue with Lopressor -Hyperlipidemia-uncontrolled pravastatin Continue current medication treatment plan. Awaiting stress test
[2021-04-24] MEDS: SODIUM CHLORIDE 0.9% 1,000 ML IV SCH (16:13)
[2021-04-24] MEDS: MONTELUKAST 10 MG TAB PO SCH (19:25)
[2021-04-24] MEDS: ATORVASTATIN 80 MG TAB PO SCH (19:25)
[2021-04-24] MEDS: ALPRAZolam 0.25 MG TAB PO PRN (19:25)
[2021-04-24] MEDS: CITALOPRAM HYDROBROMIDE 20 MG TAB PO SCH (19:26)
[2021-04-25] MEDS: SYMBICORT 160-4.5 MCG INHALER INHALATION SCH (07:46)
[2021-04-25] MEDS ORDERED: REGADENOSON 0.4 MG/5 ML SYRINGE IV PRN (08:00)
[2021-04-25 08:02] VITALS: BP 134/85; PULSE 100; TEMP 98.4
[2021-04-25] MEDS: ASPIRIN 81 MG PO SCH (08:32)
[2021-04-25] MEDS: METOPROLOL TARTRATE 50 MG TAB PO SCH (08:33)
[2021-04-25] MEDS: FERROUS SULFATE 325 MG TAB PO SCH (08:33)
[2021-04-25] MEDS: PANTOPRAZOLE 40 MG TABLET PO SCH (08:33)
[2021-04-25] MEDS: ENOXAPARIN 40 MG/0.4 ML SYRINGE SQ SCH (08:33)
--- NOTE | 2021-04-25 10:16 | P.PN ---
Subjective HISTORY OF PRESENTING ILLNESS This is a pleasant 61-year-old female past medical history significant for asthma, dyslipidemia and family history of premature coronary artery disease with her mother. She denies prior history of coronary artery disease and does not follow in the office with a horse rancher. We have been asked to see in nd nsultation for shortness of breath. He states for the previous one months she has been experiencing increased shortness of breath. This all started with what she thought was an asthma flareup. She went to her primary care physician and was diagnosed with aspiration pneumonia and started on levofloxacin. She states she took this medication for a week and has had no improvement in her symptoms. She continues to feel short of breath with exertion. She is unable to perform her typical activities of daily living without having to stop to catch her breath. She denies any associated chest pain, dizziness or palpitations. Her PCP set her up to see a horse rancher at the end of the month however she was concerned her symptoms were getting progressively worse she presented to the hospital. Her EKG revealed sinus rhythm with no acute ST or T wave abnormalities noted. Chest x-ray performed at an outside hospital revealed the medial right basilar opacity with underlying hyperinflation as well as an epicardial fat pad. Laboratory data reviewed, cardiac enzymes negative 2, NT proBNP 69, sodium 138, potassium 4.3, creatinine 0.6, WBC 12 and hemoglobin 15.4. Current daily cardiac medications include Lopressor 50 mg twice a day and pravastatin 80 mg at bedtime. She is seen and examined resting comfortably laying flat in bed in no acute distress. At rest she denies symptoms of short ness of breath. 04/25/2021 Patient is seen and examined resting comfortably in no acute distress. She states overall her breathing seems to have improved although she has not been very active since admission. Blood pressure 134/85 heart rate 100 afebrile maintaining oxygen saturation on room air. Currently maintained on aspirin 81 mg daily, atorvastatin 80 mg daily and Lopressor 50 mg twice a day. Echocardiogram obtained on this admission reveals preserved LV systolic function with ejection fraction 55-60%, mild MR and mild TR noted. PHYSICAL EXAMINATION CONSTITUTIONAL: No apparent distress. HEENT: Head is normocephalic. Pupils are equal, round. Sclerae anicteric. Mucous membranes of the mouth are moist. No JVD. No carotid bruit. CHEST EXAMINATION: Lungs are clear to auscultation. No chest wall tenderness is noted on palpation or with deep breathing. HEART EXAMINATION: Regular rate and rhythm. S1, S2 heard. No murmurs, gallops or rub. EXTREMITIES: 2+ peripheral pulses, no lower extremity edema and no calf tenderness. ASSESSMENT Exertional shortness of breath Dyslipidemia Family history of premature coronary artery disease PLAN Proceed with Lexiscan stress test as previously ordered. If abnormal we will consider coronary angiography. If no evidence of reversibility she can be discharged home to follow-up with Dr. Brooks in the office in 2 weeks. Nurse Practitioner note has been reviewed, I agree with a documented findings and plan of care. Patient was seen and examined. Objective - Vital Signs Vital signs: Vital Signs Temp 98.4 F 04/25/21 07:00 Pulse 100 04/25/21 07:00 Resp 16 04/25/21 08:00 BP 134/85 04/25/21 07:00 Pulse Ox 98 04/25/21 07:00 Intake & Output 04/24/21 04/25/21 04/25/21 18:59 06:59 18:59 Intake Total 500 250 Output Total 1 2 Balance 499 248 Weight 66.68 kg Intake: Oral 500 250 Output: Stool 1 2 Other: Voiding Method Toilet Toilet # Voids 2 3
--- NOTE | 2021-04-25 13:00 | NM ---
EXAMINATION TYPE: NM stress lexiscan cardiolite DATE OF EXAM: 04/25/2021 COMPARISON: NONE HISTORY: Chest pain TECHNIQUE: After the intravenous administration of 10.2 mCi Tc 99m Sestamibi - Cardiolite resting SP ECT images acquired 45 minutes post injection. The patient received 0.4mg Lexiscan, 24.3 mCi Tc 99m Sestamibi - Stress images obtained [address] injection FINDINGS: Review of stress and rest SPECT images demonstrates no distinct perfusion abnormality. Gated analysi s shows normal wall motion with an estimated left ventricular ejection fraction of 80 %. IMPRESSION: No scintigraphic evidence for reversible ischemia.
--- NOTE | 2021-04-25 14:48 | EST ---
EXERCISE STRESS DATE OF THE STUDY: April 21, 2021. INDICATION: Chest pain. AGE: 61 SEX: Fe HT: 5' WT: 147 lbs. PROTOCOL: Lexiscan STAGE: N/A DURATION OF EXERCISE: N/A HEART RATE REST: 74 BLOOD PRESSURE REST: 119/79 MAXIMUM HEART RATE ACHIEVED: 107 MAXIMUM BLOOD PRESSURE: 164/98 85% MPHR: 133 100% MPHR: 157 METS: N/A STRESS DATA: Heart rate 74. Pressure is 119/79 mmHg. Baseline EKG showed sinus mechanism. 0.4 mg of Lexiscan given over 15 seconds per protocol. Max heart rate was 107 beats per minute. Maximum pressure was 164/98 mmHg. Clinically, the patient did not have any symptoms and the EKG did not show any significant ST or T-wave abnormalities concerning for ischemia. CONCLUSION: 1. Nondiagnostic electrocardiogram stress testing in response to Lexiscan. 2. Please follow up on the Cardiolite portion on a separate report. MMODL / IJN: [id number] /
--- NOTE | 2021-04-25 23:13 | P.DS ---
Providers Date of admission: 04/21/21 16:31 Expected date of discharge: 04/25/21 Attending physician: Margarito Santoyo Consults: 04/21/21 16:31 Consult Physician Urgent Consulting Provider: Adebayo Brooks Consult Reason/Comments: Unstable angina, exertional dyspnea Do you want consulting provider notified?: Yes Primary care physician: [facility] Course: Chief Complaint: Chest tightness History of presenting complaint: This is a very pleasant 61-year-old patient who follows with Dr. Cuellar. Chronic stable medical conditions include GERD, hyperlipidemia, recent aspiration pneumonia. Patient about a month ago had aspiration pneumonia felt to be from excessive reflux symptoms. She was treated with antibiotics. 2 weeks ago she saw Dr. Joel in the office was felt to have a flareup of ALLERGIES and was given steroids. Patient now presents with feeling heaviness of the chest is totally tired and rundown. Has episodes of perspiration. No fever or chills. No wheezing. Breathing treatments are not making any difference. No leg swelling. Initially was seen us [facility] and was transferred down here. Admitted with a diagnosis of unstable angina. Nuclear stress test could not be scheduled on Sunday. Troponins were negative. Today: Nuclear stress test-negative. Seen by cardiology. Cleared for discharge Consultation: [facility] Past medical history to include: Asthma, GERD, hyperlipidemia Social history: Does not smoke. Alcohol occasionally. . Family history: Includes coronary artery disease Physical examination: VITAL SIGNS: 98.4, 100, 16, 134/85, 98% room air GENERAL: Sitting up, comfortable EYES: Pupils equal. Conjunctiva normal. HEENT: External appearance of nose and ears normal, oral cavity grossly normal. NECK: JVD not raised; masses not palpable. HEART: First and second heart sounds are normal; no edema. LUNGS:[ Respiratory rate normal; diminished breath sounds. ABDOMEN: Soft, nontender, liver spleen not palpable, no masses palpable. PSYCH: Alert and oriented x3; mood and affect normal. INVESTIGATIONS, reviewed in the clinical context: Nuclear stress test: Negative for ischemia 2-D echocardiogram: Moderate concentric LVH. EF 55-60% LDL 171 TSH 0.5 Troponin I 2 negative Coronavirus [PCR]-not detected Labs reviewed from [facility] Assessment and plan: -Anterior chest wall pain. Cardiac enzymes negative. Nuclear stress tests: Negative for ischemia -Moderate persistent asthma, stable Continue with Symbicort and bronchodilator -Essential hypertension Continue with Lopressor -Hypertensive heart disease -Hyperlipidemia-uncontrolled pravastatin Disposition: Home Patient Condition at Discharge: Fair Plan - Discharge Summary Discharge Rx Participant: No New Discharge Prescriptions: New Aspirin 81 mg PO DAILY chew Nitroglycerin Sl Tabs [Nitrostat] 0.4 mg SUBLINGUAL Q5M PRN #30 tab PRN Reason: Chest Pain Continue Citalopram Hydrobromide [Citalopram HBr] 20 mg PO HS Montelukast [Singulair] 10 mg PO HS Nystatin 100,000 Unit/ml Susp [Mycostatin Oral Susp] 4 ml PO QID PRN PRN Reason: SORE THROAT/MOUTH X7 DAYS Ferrous Sulfate [Feosol] 325 mg PO DAILY Budesonide/Formoterol Fumarate [Symbicort 160-4.5 Mcg Inhaler] 2 puff INHALATION RT-BID Pravastatin Sodium 80 mg PO HS Metoprolol Tartrate [Lopressor] 50 mg PO BID Albuterol Inhaler [Ventolin Hfa Inhaler] 2 puff INHALATION RT-Q4H PRN PRN Reason: Shortness Of Breath ALPRAZolam [Xanax] 0.25 mg PO BID PRN PRN Reason: Anxiety Esomeprazole Magnesium [NexIUM 24Hr] 40 mg PO DAILY Discharge Medication List Citalopram Hydrobromide [Citalopram HBr] 20 mg PO HS 08/24/18 [History] Montelukast [Singulair] 10 mg PO HS 09/16/18 [History] ALPRAZolam [Xanax] 0.25 mg PO BID PRN 04/21/21 [History] Albuterol Inhaler [Ventolin Hfa Inhaler] 2 puff INHALATION RT-Q4H PRN 04/21/21 [History] Budesonide/Formoterol Fumarate [Symbicort 160-4.5 Mcg Inhaler] 2 puff INHALATION RT-BID 04/21/21 [History] Esomeprazole Magnesium [NexIUM 24Hr] 40 mg PO DAILY 04/21/21 [History] Ferrous Sulfate [Feosol] 325 mg PO DAILY 04/21/21 [History] Metoprolol Tartrate [Lopressor] 50 mg PO BID 04/21/21 [History] Nystatin 100,000 Unit/ml Susp [Mycostatin Oral Susp] 4 ml PO QID PRN 04/21/21 [History] Pravastatin Sodium 80 mg PO HS 04/21/21 [History] Aspirin 81 mg PO DAILY chew 04/25/21 [Rx] Nitroglycerin Sl Tabs [Nitrostat] 0.4 mg SUBLINGUAL Q5M PRN #30 tab 04/25/21 [Rx] Follow up Appointment(s)/Referral(s): Kermit Cuellar MD [Primary Care Provider] - 04/29/21 11:30 am (with Cindy TURNER) Adebayo Brooks MD [STAFF PHYSICIAN] - 2 Weeks (Cardiology office will call you with an appointment time) Patient Instructions/Handouts: Chest Pain (DC), Heart Healthy Diet (DC) Discharge Disposition: HOME SELF-CARE
== END 2021-04-25 15:00 | disposition home or self-care (01) ==
LOC: EC 15:01 → 6NMEDSUR 16:31
PROVIDERS: ADMIT Hospitalist; ATTEND Hospitalist
DX: R07.89 Other chest pain (principal); J45.40 Moderate persistent asthma, uncomplicated; I11.9 Hypertensive heart disease without heart failure; E78.5 Hyperlipidemia, unspecified; I08.1 Rheumatic disorders of both mitral and tricuspid valves; K21.9 Gastro-esophageal reflux disease without esophagitis; D64.9 Anemia, unspecified; F41.9 Anxiety disorder, unspecified; R53.83 Other fatigue; R53.1 Weakness; Z20.822 Contact with and (suspected) exposure to COVID-19; Z79.51 Long term (current) use of inhaled steroids; Z79.899 Other long term (current) drug therapy; Z88.1 Allergy status to other antibiotic agents; Z88.2 Allergy status to sulfonamides; Z87.01 Personal history of pneumonia (recurrent); Z86.19 Personal history of other infectious and parasitic diseases; Z98.51 Tubal ligation status; Z98.890 Other specified postprocedural states; Z82.49 Family history of ischemic heart disease and other diseases of the circulatory system; Z83.3 Family history of diabetes mellitus; Z80.0 Family history of malignant neoplasm of digestive organs
CPT/HCPCS: 96372 ×4; 93005; 99285; 94640 ×8; 93017; 93306; 80061; 84443; 84484; 87635; 78452; G0378 ×5; A9500; J1650 ×4

== ENCOUNTER → 2021-09-07 | Outpatient (CLI) | payer BC ==
--- NOTE | 2021-09-07 11:43 | BD ---
EXAMINATION TYPE: Axial Bone Density DATE OF EXAM: 09/07/2021 COMPARISON: 09.27.2015 CLINICAL HISTORY: 61 YR OLD FEMALE.....ICD-10 CODE: N95.1 POST MENOPAUSAL Height: 59.4 Weight: 147 FRAX RISK QUESTIONS: Glucocorticoids (More than 3mos): YES (Ex: prednisone, prednisolone, methylprednisolone, dexamethasone, and hydrocortisone). History of Fracture in Adulthood: YES RISK FACTORS HISTORY OF: HX OF RIB FX AT 56 YRS OLD Postmenopausal woman: YES, AT AGE 48 Take estrogen and/or progesterone medications: YES, IN PAST FOR ABOUT 2 YRS Lost more than 2 inches in height since high school: YES Hyperparathyroidism: NO Adrenal Insufficiency: NO MEDICATIONS: Prednisone or other steroids: YES, FOR ASTHMA, FOR ABOUT 20+ YRS Additional Medications: BP MEDS, CHOLESTEROL MEDS, NITRO, REFLUX MEDS, XANAX, ZOLOFT, Additional History: HYPERTENSION, ASTHMA, REFLUX, RACING HEART, CHOLESTEROL, ANXIETY, EXAM MEASUREMENTS: Bone mineral densitometry was performed using the [employer] System. Bone mineral density as measured about the Lumbar spine is: ----- L1-L4(G/cm2): 0.904 T Score Values are as follows: ----- L1: -1.3 ----- L2: -2.0 ----- L3: -2.1 ----- L4: -3.6 ----- L1-L4: -2.3 Bone mineral density has: Decreased -7.1% since study of: 09.27.2015 Bone mineral density about the R hip (g/cm2): 0.888 Bone mineral density about the L hip (g/cm2): 0.917 T Score values are as follows: -----R Neck: -1.3 -----L Neck: -1.6 -----R Total: -1.0 -----L Total: -0.7 Bone mineral density has: Decreased -1.5% since study of: 09.27.2015 FRAX%s: THERE IS A 23.1% CHANCE FOR A MAJOR OSTEOPOROTIC FX AND A 3.0% FOR HIP.....PROBABILITY FOR FX IN 10 YRS TIME IMPRESSION: Osteopenia. NOTE: T-SCORE=SD OF THE YOUNG ADULT MEAN.
--- NOTE | 2021-09-08 09:49 | MM ---
Reason for exam: screening (asymptomatic). Last mammogram was performed 2 years and 7 months ago. History: Patient is postmenopausal. Took hormonal contraceptives for 15 years. Took progesterone for 1 year 5 months beginning at age 49. Physical Findings: A clinical breast exam by your physician is recommended on an annual basis and results should be correlated with mammographic findings. MG 3D Screening Mammo W/Cad Bilateral CC and MLO view(s) were taken. Prior study comparison: February 12, 2019, bilateral MG 3d screening mammo w/cad. September 27, 2015, bilateral MG 3d screening mammo w/cad. The breast tissue is heterogeneously dense. This may lower the sensitivity of mammography. Stable benign calcifications. There is no discrete abnormality. No significant changes when compared with prior studies. ASSESSMENT: Benign, BI-RAD 2 RECOMMENDATION: Routine screening mammogram of both breasts in 1 year.
== END | disposition home or self-care (01) ==
LOC: RADMAMWWP 10:02
PROVIDERS: ATTEND Obstetrics & Gynecology
DX: Z12.31 Encounter for screening mammogram for malignant neoplasm of breast (principal); M85.89 Other specified disorders of bone density and structure, multiple sites; Z78.0 Asymptomatic menopausal state
CPT/HCPCS: 77063; 77067; 77080

== ENCOUNTER → 2022-09-21 | Outpatient (CLI) | payer BC ==
--- NOTE | 2022-09-22 08:16 | MM ---
Reason for Exam: Screening (asymptomatic). Last mammogram was performed 1 year(s) and 1 month(s) ago. Patient History: Menarche at age 12. First Full-Term at age 21. Postmenopausal. Patient has history of breast feeding. Progesterone, starting at age 49 for 1 year, 5 months. Patient used Hormonal Contraceptives for 15 years. Risk Values: Edie 5 year model risk: 1.3%. NCI Lifetime model risk: 5.3%. Prior Study Comparison: 09/27/2015 Bilateral Screening Mammogram, LOCATED [facility]IN [facility]. 02/12/2019 Bilateral Screening Mammogram, [facility]. 09/07/2021 Bilateral Screening Mammogram, [facility]. Tissue Density: The breast tissue is heterogeneously dense. This may lower the sensitivity of mammography. Findings: Analyzed By CAD. There is no suspicious group of microcalcifications or new suspicious mass in either breast. Overall Assessment: Benign, BI-RAD 2 Management: Screening Mammogram of both breasts in 1 year. A clinical breast exam by your physician is recommended on an annual basis and results should be correlated with mammographic findings. Electronically signed and approved by: Kamari Jones M.D. Radiologis
== END | disposition home or self-care (01) ==
LOC: RADMAMWWP 12:47
PROVIDERS: ATTEND Obstetrics & Gynecology
DX: Z12.31 Encounter for screening mammogram for malignant neoplasm of breast (principal); Z78.0 Asymptomatic menopausal state
CPT/HCPCS: 77063; 77067

== ENCOUNTER → 2024-04-09 | Outpatient (CLI) | payer BC, MEDICARE ==
--- NOTE | 2024-04-15 19:56 | MM ---
Reason for Exam: Screening (asymptomatic). Last mammogram was performed 1 year(s) and 6 month(s) ago. Patient History: Menarche at age 12. First Full-Term at age 21. Postmenopausal. Patient has history of breast feeding. Progesterone, starting at age 49 for 1 year, 5 months. Patient used Hormonal Contraceptives for 15 years. Risk Values: Edie 5 year model risk: 1.4%. NCI Lifetime model risk: 4.9%. Prior Study Comparison: 02/12/2019 Bilateral Screening Mammogram, [facility]. 09/07/2021 Bilateral Screening Mammogram, [facility]. 09/21/2022 Bilateral MG 3D screening mammo w/cad, [facility]. Tissue Density: There are scattered areas of fibroglandular density. Findings: Analyzed By CAD. Chronic nodularity on the left. There is no suspicious group of microcalcifications or new suspicious mass in either breast. Overall Assessment: Benign, BI-RAD 2 Management: Screening Mammogram of both breasts in 1 year. . Patient should continue monthly self-breast exams. A clinical breast exam by your physician is recommended on an annual basis. This exam should not preclude additional follow-up of suspicious palpable abnormalities. Note on Edie scores and lifetime risk: 1. A Edie score greater than 3% is considered moderate risk. If this is the case, consider specialist referral to assess eligibility for a risk reducing agent. 2. If overall lifetime risk for the development of breast cancer is 20% or higher, the patient may qualify for future screening with alternating mammogram and breast MRI. Electronically signed and approved by: Amadou Mclain M.D. Radiologist
== END | disposition home or self-care (01) ==
LOC: RADMAMWWP 14:13
PROVIDERS: ATTEND Family Medicine
DX: Z12.31 Encounter for screening mammogram for malignant neoplasm of breast (principal); Z78.0 Asymptomatic menopausal state
CPT/HCPCS: 77063; 77067

== ENCOUNTER → 2025-05-21 | Outpatient (CLI) | payer BC, MEDICARE ==
--- NOTE | 2025-05-21 11:45 | MM ---
Reason for Exam: Screening (asymptomatic). Last mammogram was performed 1 year(s) and 2 month(s) ago. Patient History: Menarche at age 12. First Full-Term at age 21. Postmenopausal. Patient has history of breast feeding. Progesterone, starting at age 49 for 1 year, 5 months. Patient used Hormonal Contraceptives for 15 years. Risk Values: Edie 5 year model risk: 1.4%. NCI Lifetime model risk: 4.8%. Prior Study Comparison: 09/07/2021 Bilateral Screening Mammogram, [facility]. 09/21/2022 Bilateral MG 3D screening mammo w/cad, [facility]. 04/09/2024 Bilateral MG 3D screening mammo w/cad, [facility]. Tissue Density: There are scattered areas of fibroglandular density. Findings: Analyzed By CAD. Chronic nodularity posterior upper outer quadrant left breast. There is no suspicious group of microcalcifications or new suspicious mass in either breast. Overall Assessment: Benign, BI-RAD 2 Management: Screening Mammogram of both breasts in 1 year. Patient should continue monthly self-breast exams. A clinical breast exam by your physician is recommended on an annual basis. This exam should not preclude additional follow-up of suspicious palpable abnormalities. Note on Edie scores and lifetime risk: 1. A Edie score greater than 3% is considered moderate risk. If this is the case, consider specialist referral to assess eligibility for a risk reducing agent. 2. If overall lifetime risk for the development of breast cancer is 20% or higher, the patient may qualify for future screening with alternating mammogram and breast MRI. [facility], , 05/21/2025 11:42 AM. Electronically signed and approved by: Amadou Mclain M.D. Radiologist
--- NOTE | 2025-05-21 11:50 | BD ---
EXAMINATION TYPE: Axial Bone Density DATE OF EXAM: 05/21/2025 CLINICAL HISTORY: 65 years old Female. ICD-10 CODE: Z78.0ASYMPTOMATIC MENOPAUSAL STA , Additional Hi story: Height: 60 Weight: 147.8 FRAX RISK QUESTIONS: Alcohol (3 or more units per day): no Family History (Parent hip fracture): no Glucocorticoids (More than 3mos): yes (Ex: prednisone, prednisolone, methylprednisolone, dexamethasone, and hydrocortisone). History of Fracture in Adulthood: no Secondary Osteoporosis: 1. Type 1 Diabetes: no 2. Hyperthyroidism: no 3. Menopause before 45: no 4. Malnutrition: no 5. Chronic liver disease: no Rheumatoid Arthritis: no Current Tobacco Use: no RISK FACTORS HISTORY OF: Surgery to Spine/Hip(right/left)/Wrist (right/left): no EXAM MEASUREMENTS: Bone mineral densitometry was performed using the C-Note System. Bone mineral density as measured about the Lumbar spine is: ----- L1-L4(G/cm2): 0.907 T Score Values are as follows: ----- L1: -1.3 ----- L2: -1.5 ----- L3: -2.2 ----- L4: -3.6 ----- L1-L4: -2.3 Z Score Values are as follows: ----- L1: 0.3 ----- L2: 0.0 ----- L3: -0.7 ----- L4: -2.1 ----- L1-L4: -0.7 Bone mineral density has: increased 0.3 % since study of: 09.07.2021 Bone mineral density about the R hip (g/cm2): 0.886 Bone mineral density about the L hip (g/cm2): 0.928 T Score values are as follows: -----R Neck: -1.8 -----L Neck: -1.8 -----R Total: -1.0 -----L Total: -0.6 Z Score values are as follows: -----R Neck: -0.3 -----L Neck: -0.2 -----R Total: 0.3 -----L Total: 0.6 Bone mineral density has: increased 0.6 % since study of: 09.07.2021 FRAX%s: The graph provided illustrates a 16.4% chance for a major osteoporotic fx and a 2.8% chance f or the hips probability for fx in 10 years time. IMPRESSION: Osteopenia (T Score between -2.5 and -1). There is slightly increased risk of fracture and the patient may be considered for treatment. Re-Screen 2-5 years. NOTE: T-SCORE=SD OF THE YOUNG ADULT MEAN. [facility], , 05/21/2025 11:48 AM
== END | disposition home or self-care (01) ==
LOC: RADMAMWWP 10:12
PROVIDERS: ATTEND Student in an Organized Health Care Education/Training Program
DX: Z12.31 Encounter for screening mammogram for malignant neoplasm of breast (principal); R92.323 Mammographic fibroglandular density, bilateral breasts; Z78.0 Asymptomatic menopausal state; Z92.0 Personal history of contraception; M85.89 Other specified disorders of bone density and structure, multiple sites
CPT/HCPCS: 77063; 77067; 77080